=== PATIENT | female | born 1945 | race Caucasian/White ===

== ENCOUNTER 2024-11-27 16:49 | Inpatient (IN) | payer OTHER, SELFPAY ==
[2024-11-27] VITALS (9 sets, daily range): BP systolic 97–178; BP diastolic 62–101; BMI 27.5; BMI 25.0
[2024-11-27 13:23] LABS: % Basophils 0.8 % (0-2); % Eosinophils 7.8 % (0-6); % Immature Granulocytes 0.3 % (0-0.5); % Lymphocytes 16.6 % (20.5-51.1); % Monocytes 9.2 % (1.7-9.3); % Neutrophils 65.3 % (42.2-75.2); Absolute Basophils 0.1 10^3/uL (0-0.2); Absolute Eosinophils 0.9 10^3/uL (0-0.7); Absolute Monocytes 1.1 10^3/uL (0.1-0.6); Absolute Neutrophils 7.8 10^3/uL (1.4-6.5); Hematocrit 33.8 % (37.0-47.0); Hemoglobin 10.7 g/dL (12.0-16.0); Mean Corp Hgb Conc. 31.7 g/dL (33.0-37.0); Mean Corpuscular Volume 94.7 fL (81.0-99.0); Mean Platelet Volume 10.5 fL (7.4-10.4); Nucleated Red Blood Cells % 0 %; Platelet Count 488 10^3/uL (130-400); Red Blood Cell Count 3.57 10^6/uL (4.20-5.40); Red Cell Dist. Width 17.8 % (11.5-14.5); White Blood Cell Count 11.9 10^3/uL (4.8-10.8)
--- NOTE | 2024-11-27 13:35 | ED.GENMED ---
History of Present Illness
<Radha Joseph PA-C - Last Filed: 11/27/24 20:52>
General
Chief Complaint: Breathing Problem
Source: patient
Exam Limitations: none
Time Seen by Provider: 11/27/24 12:50
Nursing documentation reviewed up to this point in time: agreed with
History of Present Illness
History of Present Illness:
79 y/o F with h/o afib on eliquis, HTN, hld,
here with aides who have noticed she is dyspneic the past week on exertion
pt has also fallen 2 times, once 10 days ago and another time 2 days ago and seemed to almost pass otu though she didnt'
the first
Past History
<Radha Joseph PA-C - Last Filed: 11/27/24 20:52>
Past History
ED Past Medical History: Arrthythmia and CVA
Social History
Tobacco: Non-smoker
Phy Exam
<Radha Joseph PA-C - Last Filed: 11/27/24 20:52>
Physical Exam
Physical Exam:
GENERAL: Alert , in no apparent distress
HEAD: NCAT
EYE: pupils equal and reactive, no nystagmus, no photophobia
NECK: Supple,full rom, nontender
ENT: o/p clr, mmm.
CARDIAC: Regular rate and rhythm . no edema
LUNGS: Clear breath sounds bilaterally, no acute respiratory distress, no wheezes/rales/rhonchi
ABDOMEN: Soft, without focal tenderness, no r/g, no cvat
NEUROLOGICAL: Alert and orientedx 4, cn intact, no facial asymmetry, 5/5 strength in UE/LE, sensation intact, chronic left Achilles drop/foot drop, otherwise strength intact t
SKIN: Warm and dry, skin intact.
MUSCULOSKELETAL: No edema, well perfused.
PSYCH: Normal and appropriate interaction.
Scores
<Radha Opal, PA-C - Last Filed: 11/27/24 20:52>
Heart Failure Risk
Heart Failure Risk Score: Not Applicable
Course
<Radha Joseph PA-C - Last Filed: 11/27/24 20:52>
Orders/Labs/Results
Orders:
Orders
11/27/24 11:18
Electrocardiogram (*1) Urgent
Reason for Study: Shortness of Breath
EKG- Treatment ONCE
11/27/24 13:08
Urinalysis Reflex To Culture Urgent
Date Specimen was Collected: 11/27/24
Time Specimen was Collected: 13:16
11/27/24 13:09
CT Head W/o Iv Contrast Urgent
Comment:
Reason For Exam: fall , on eliquis
CR Chest - 2 Views Urgent
Comment:
Reason For Exam: sob
11/27/24 13:17
Type+Screen Urgent
Complete Blood Count/With Diff Urgent
Lactic Acid Urgent
PTT Urgent
Prothrombin Time Urgent
11/27/24 15:08
Comprehensive Metabolic Panel Urgent
Lipase Urgent
Troponin I Urgent
11/27/24 16:03
US Abdomen Complete/Upper Urgent
Comment:
Reason For Exam: elevated LFTs
11/27/24 16:15
Hepatitis A Antibody, Total Urgent
Hepatitis A IgM Antibody Urgent
Hepatitis B Core Ab, IgM Urgent
Hepatitis B Core Ab, Total Urgent
Hepatitis B Surface Antibody Urgent
Hepatitis B Surface Antigen Urgent
Hepatitis C Antibody Urgent
Tylenol [Acetaminophen] Urgent
11/27/24 16:23
Admit/Transfer Patient As Directed
Co-Sign Provider:
Level of Care: Inpatient admission
Assign to:: Telemetry
Physician / Group: Denise Garcia
Diagnosis: small volume acute hemorrhage in the left lateral ventricle, transaminitis
Reason for Telemetry: Arrhythmia
Date to Stop Telemetry: 11/30/24
Time to Stop Telemetry: 11:00
Reason for Hospitalization: small volume acute hemorrhage in the left lateral ventricle, transaminitis
Expected length of stay greater than two midnights?: Yes
ELOS- Estimated Length of Stay in days: 3
I certify the patient meets the requirements for IP care: Yes
PRN Pain Medication Management As Directed
May give lesser potent ordered pain med per pt: Yes
preference::
Protocol:: Medication orders for pain may be administered in a
manner that supports deferring to patient preference
when the pt is:
- Requesting an ordered lesser potent pain medication.
Least to most potent pain medications are defined
as: acetaminophen < NSAID < tramadol < opioids
(morphine, oxycodone, hydromorphone).
- Requesting a lesser dose of the same medication IF
ORDERED.
- Requesting a less intrusive route of administration
if both routes are prescribed by the provider (PO <
IV).
11/27/24 16:25
Code Status As Directed
Resuscitation Status: Do not resuscitate
Reached after discussion with pt or family/Healthcare POA: Yes
Decision communicated with: patient
DNR Bracelet Application ONCE
11/27/24 17:48
GASTROINTESTINAL CONSULT Routine
Consulting Provider: Kamala Machado
Was physician already notified: Yes
Neurosurgery Consult Routine
Consulting Provider: Nery Barrera
Was physician already notified: Yes
Activity As Directed
Activity Level: With Assistance
NIH Stroke Scale As Directed
Directions: Per protocol
Comment: every shift and with any change in condition or mental status
Neurological Checks As Directed
Frequency: q4h
Additional Instructions:: q4h x 24h upon admission to the floor, then qshift & with any change in condition
and mental status
Pneumatic Compression Sleeves As Directed
Type: Knee high
Vital Signs As Directed
Frequency: Per unit guidelines
Ot Eval And Treat Routine
Pt Eval And Treat Routine
Activity Level: With Assistance
DX Deep Vein Thrombosis Video Routine
11/27/24 20:00
CT Head W/o Iv Contrast Routine
Comment:
Reason For Exam: monitor brain bleed
Calcium Carbonate [Oscal Zi 500] 500 mg PO BID
11/28/24 06:00
Complete Blood Count/No Diff IN AM
11/28/24 08:00
Fluoxetine HCl [Prozac] 40 mg PO DAILY
Lactobac/Bifidobac [Visbiome] 1 cap PO DAILY
Lisinopril [Zestril] 2.5 mg PO DAILY
Metoprolol Xl [Toprol Xl] 50 mg PO DAILY
Vitamin B Complex with C [B COMPLEX w/VITAMIN C] 1 caplet PO DAILY
11/30/24 11:00
DC Protocol for Telemetry ONCE
Abnormal Lab Results
11/27/24 11/27/24
13:17 15:08
WBC 11.9 H 10^3/uL
(4.8-10.8)
RBC 3.57 L 10^6/uL
(4.20-5.40)
Hgb 10.7 L g/dL
(12.0-16.0)
Hct 33.8 L %
(37.0-47.0)
MCHC 31.7 L g/dL
(33.0-37.0)
RDW 17.8 H %
(11.5-14.5)
Plt Count 488 H 10^3/uL
(130-400)
MPV 10.5 H fL
(7.4-10.4)
Absolute Neuts (auto) 7.8 H 10^3/uL
(1.4-6.5)
Absolute Monos (auto) 1.1 H 10^3/uL
(0.1-0.6)
Absolute Eos (auto) 0.9 H 10^3/uL
(0-0.7)
Lymphocytes % 16.6 L %
(20.5-51.1)
Eosinophils % 7.8 H %
(0-6)
PT 16.4 H Sec
(11.4-14.6)
APTT 37.8 H Sec
(23.4-35.0)
Chloride 108 H mmol/L
(98-107)
BUN 18 H mg/dl
(7-17)
Creatinine 1.4 H mg/dL
(0.6-1.0)
Glucose 105 H mg/dl
(70-99)
Total Bilirubin 4.7 H mg/dl
(0.2-1.3)
AST 926 H* U/L
(14-36)
ALT 842 H* U/L
(0-35)
Alkaline Phosphatase 2153 H U/L
(38-126)
11/27/24 13:17
11/27/24 15:08
Vital Signs
Pulse: 74
Blood pressure: 104/81
Initial and Last Documented VS:
Initial Vital Signs
Temp Pulse Resp BP Pulse Ox
36.6 C 90 18 172/82 96
11/27/24 11:14 11/27/24 11:14 11/27/24 11:14 11/27/24 11:14 11/27/24 11:14
Last Documented Vital Signs
Temp Pulse Resp BP Pulse Ox
36.8 C 76 17 123/81 97
11/27/24 18:02 11/27/24 18:47 11/27/24 18:02 11/27/24 18:47 11/27/24 18:02
<Mayi Muhammad, DO - Last Filed: 11/27/24 16:12>
Orders/Labs/Results
Orders:
Orders
11/27/24 11:18
Electrocardiogram (*1) Urgent
Reason for Study: Shortness of Breath
EKG- Treatment ONCE
11/27/24 13:08
Urinalysis Reflex To Culture Urgent
Date Specimen was Collected: 11/27/24
Time Specimen was Collected: 13:16
11/27/24 13:09
CT Head W/o Iv Contrast Urgent
Comment:
Reason For Exam: fall , on eliquis
CR Chest - 2 Views Urgent
Comment:
Reason For Exam: sob
11/27/24 13:17
Type+Screen Urgent
Complete Blood Count/With Diff Urgent
Lactic Acid Urgent
PTT Urgent
Prothrombin Time Urgent
11/27/24 15:08
Comprehensive Metabolic Panel Urgent
Lipase Urgent
Troponin I Urgent
11/27/24 16:03
US Abdomen Complete/Upper Urgent
Comment:
Reason For Exam: elevated LFTs
11/27/24 16:15
Hepatitis A Antibody, Total Urgent
Hepatitis A IgM Antibody Urgent
Hepatitis B Core Ab, IgM Urgent
Hepatitis B Core Ab, Total Urgent
Hepatitis B Surface Antibody Urgent
Hepatitis B Surface Antigen Urgent
Hepatitis C Antibody Urgent
Tylenol [Acetaminophen] Urgent
11/27/24 16:23
Admit/Transfer Patient As Directed
Co-Sign Provider:
Level of Care: Inpatient admission
Assign to:: Telemetry
Physician / Group: Denise Garcia
Diagnosis: small volume acute hemorrhage in the left lateral ventricle, transaminitis
Reason for Telemetry: Arrhythmia
Date to Stop Telemetry: 11/30/24
Time to Stop Telemetry: 11:00
Reason for Hospitalization: small volume acute hemorrhage in the left lateral ventricle, transaminitis
Expected length of stay greater than two midnights?: Yes
ELOS- Estimated Length of Stay in days: 3
I certify the patient meets the requirements for IP care: Yes
PRN Pain Medication Management As Directed
May give lesser potent ordered pain med per pt: Yes
preference::
Protocol:: Medication orders for pain may be administered in a
manner that supports deferring to patient preference
when the pt is:
- Requesting an ordered lesser potent pain medication.
Least to most potent pain medications are defined
as: acetaminophen < NSAID < tramadol < opioids
(morphine, oxycodone, hydromorphone).
- Requesting a lesser dose of the same medication IF
ORDERED.
- Requesting a less intrusive route of administration
if both routes are prescribed by the provider (PO <
IV).
11/27/24 16:25
Code Status As Directed
Resuscitation Status: Do not resuscitate
Reached after discussion with pt or family/Healthcare POA: Yes
Decision communicated with: patient
DNR Bracelet Application ONCE
11/27/24 17:48
GASTROINTESTINAL CONSULT Routine
Consulting Provider: Kamala Machado
Was physician already notified: Yes
Neurosurgery Consult Routine
Consulting Provider: Nery Barrera
Was physician already notified: Yes
Activity As Directed
Activity Level: With Assistance
NIH Stroke Scale As Directed
Directions: Per protocol
Comment: every shift and with any change in condition or mental status
Neurological Checks As Directed
Frequency: q4h
Additional Instructions:: q4h x 24h upon admission to the floor, then qshift & with any change in condition
and mental status
Pneumatic Compression Sleeves As Directed
Type: Knee high
Vital Signs As Directed
Frequency: Per unit guidelines
Ot Eval And Treat Routine
Pt Eval And Treat Routine
Activity Level: With Assistance
DX Deep Vein Thrombosis Video Routine
11/27/24 20:00
CT Head W/o Iv Contrast Routine
Comment:
Reason For Exam: monitor brain bleed
Calcium Carbonate [Oscal Zi 500] 500 mg PO BID
11/28/24 06:00
Complete Blood Count/No Diff IN AM
11/28/24 08:00
Fluoxetine HCl [Prozac] 40 mg PO DAILY
Lactobac/Bifidobac [Visbiome] 1 cap PO DAILY
Lisinopril [Zestril] 2.5 mg PO DAILY
Metoprolol Xl [Toprol Xl] 50 mg PO DAILY
Vitamin B Complex with C [B COMPLEX w/VITAMIN C] 1 caplet PO DAILY
11/30/24 11:00
DC Protocol for Telemetry ONCE
Abnormal Lab Results
11/27/24 11/27/24
13:17 15:08
WBC 11.9 H 10^3/uL
(4.8-10.8)
RBC 3.57 L 10^6/uL
(4.20-5.40)
Hgb 10.7 L g/dL
(12.0-16.0)
Hct 33.8 L %
(37.0-47.0)
MCHC 31.7 L g/dL
(33.0-37.0)
RDW 17.8 H %
(11.5-14.5)
Plt Count 488 H 10^3/uL
(130-400)
MPV 10.5 H fL
(7.4-10.4)
Absolute Neuts (auto) 7.8 H 10^3/uL
(1.4-6.5)
Absolute Monos (auto) 1.1 H 10^3/uL
(0.1-0.6)
Absolute Eos (auto) 0.9 H 10^3/uL
(0-0.7)
Lymphocytes % 16.6 L %
(20.5-51.1)
Eosinophils % 7.8 H %
(0-6)
PT 16.4 H Sec
(11.4-14.6)
APTT 37.8 H Sec
(23.4-35.0)
Chloride 108 H mmol/L
(98-107)
BUN 18 H mg/dl
(7-17)
Creatinine 1.4 H mg/dL
(0.6-1.0)
Glucose 105 H mg/dl
(70-99)
Total Bilirubin 4.7 H mg/dl
(0.2-1.3)
AST 926 H* U/L
(14-36)
ALT 842 H* U/L
(0-35)
Alkaline Phosphatase 2153 H U/L
(38-126)
11/27/24 13:17
11/27/24 15:08
Vital Signs
Initial and Last Documented VS:
Initial Vital Signs
Temp Pulse Resp BP Pulse Ox
36.6 C 90 18 172/82 96
11/27/24 11:14 11/27/24 11:14 11/27/24 11:14 11/27/24 11:14 11/27/24 11:14
Last Documented Vital Signs
Temp Pulse Resp BP Pulse Ox
36.8 C 76 17 123/81 97
11/27/24 18:02 11/27/24 18:47 11/27/24 18:02 11/27/24 18:47 11/27/24 18:02
Yesylt;Radha Joseph PA-C - Last Filed: 11/27/24 20:52>
MDM/Problems Addressed
MDM/Problems Addressed:
oom 8 is mellisa judak 79 y/o F with h/o afib on eliquis, htn, hld
has daily caregivers
had a fall 10 days ago backwards with head strike, no evaluation and then 2 days ago also with a fall forwards, head strike, transient confusion, no eval until today
aides thoguht she was off balance since and a little winded with movement
awake and alert x 4
neuro intact other than foot drop chronic L leg
family thinks she is leaning to the r which i dont' appreciate
bp 100/80s, otherwise stable, well appearing, fiesty
ct head shows small L lateral ventricular hemorrhage;
last dose eliquis this am
nsg consulted dr. barrera and recommend no need to reverse eliquis, repeat head ct 6 hours and can stay here which pt prefers;
chemistry hemolyzed initially
shows obstructive pattern lfts (normal lipase)
no abd pain here
US sohws duct dilation
hostpialist made aware
will need gi consult, MRCP
<Radha Joseph PA-C - Last Filed: 11/27/24 20:52>
*Critical Care Note
Total Time (30-74mins, 75-104mins- exclusive of procedures): Not Applicable
ED Attending Note
<Radha Joseph PA-C - Last Filed: 11/27/24 20:52>
-
Portions of this chart may have been created with voice recognition software.� Occasional wrong word or��sound alike� substitutions may have occurred due to the inherent limitations of voice recognition software.
<Mayi Muhammad DO - Last Filed: 11/27/24 16:12>
ED Attending Note
Patient seen and examined by attending physician: Yes
I performed the substantive portion of visit, reviewed & personally made and approve the management plan that is documented in note by myself or OKSANA.: Yes
I performed a history and physical exam of patient and discussed management with resident, I reviewed resident's note and agree with documented findings and plan of care.: Yes
ED Attending Note:
79-year-old female with history of A-fib on anticoagulation presenting for dyspnea. Patient arrives with her aide who notes that she has been feeling short of breath, looked more short of breath and has had URI symptoms. Additionally patient notes
that she falls frequently, had a fall about 2 weeks ago and a fall 2 days ago. She was encouraged to come to hospital at that time, however did not get evaluated. No weakness, visual changes numbness or tingling. No reported fevers or any known
sick contacts. Vital signs on arrival significant for hypertension, however improved without intervention.
On my assessment patient is resting comfortably, no comfort. No increased work of breathing. Lungs clear to auscultation. Suspect viral type symptoms. No present hypoxia. From a respiratory standpoint, labs obtained as well as chest x-ray. No
significant signs of pulmonary edema. Viral swabs negative. No signs of pneumonia. Patient had a CT brain imaging given report of fall and anticoagulation. No signs of head trauma. However, CT is showing a small possible intraventricular
hemorrhage. In discussion with neurosurgery, plan for admission for repeat CT imaging in 6 to 12 hours. Patient made aware of her findings. Plan for admission. Daughter and aide updated at bedside
16:00 -patient's chemistry panel came back grossly abnormal with elevated T. bili, transaminitis, elevated alk phos. Concern for intra-abdominal pathology. Lipase normal. Plan for ultrasound imaging. Patient already admitted to the hospital with
plan for continued workup of cholangitis versus choledocholithiasis versus carcinoma
Discharge Plan
Departure
Patient Disposition: Admit
Date of Disposition: 11/27/24
Time of Disposition: 15:11
Admit to: IMU
Presentation/result/management discussed w/ accepting MD/DO: Hospitalist
Patient with high blood pressure during this ER visit?: No
Condition: Fair
Covid-19: Not Applicable
Discharge Problem:
Intraventricular hemorrhage, Fall
Interventions
Interventions:
*Risk Screen - Suicide Last Done: 11/27/24 11:14
*General Assessment Last Done: 11/27/24 11:14
*Neglect/Abuse Screening Last Done: 11/27/24 11:14
*ED COVID-19 Vaccine History Last Done: 11/27/24 18:28
*Nursing Disposition Last Done: 11/27/24 17:56
ED- Cardiac Assessment Last Done: 11/27/24 12:22
ED- Pulmonary Assessment Last Done: 11/27/24 12:22
Discharge Date and Time
Discharge Date/Time: 11/27/24 17:56
[2024-11-27 14:06] LABS: INR 1.26; PT 16.4 Sec (11.4-14.6)
[2024-11-27 14:07] LABS: APTT 37.8 Sec (23.4-35.0)
[2024-11-27 14:13] LABS: Lactic Acid 1.2 mmol/L (0.7-2.0)
--- NOTE | 2024-11-27 15:18 | HPS.HSE ---
Family Physician
-
Family Physician: Maren Conner
Chief Complaint
-
exertional dyspnea
History of Present Illness
Patient is a 79-year-old female with past medical history significant for hyperlipidemia, atrial fibrillation, chronic anemia, chronic kidney disease, and anxiety/depression who presented to [facility] ED for evaluation of exertional
dyspnea for past week. Patient states that her aides and daughter decided she needed to come to hospital for evaluation for increased exertional dyspnea over the past week. Aides reported patient had 2 recent falls with head strike, one 10 days ago
where she fell backwards and one 2 days ago where she fell forward. They reported transient confusion with no evaluation until today. Patient is AAOx4 and claims to not remember any falls and believes aides are lying that she fell. Neuro assessment
WNL, does have known left foot drop. Patient denies any recent fever, chills, cough, chest pain, nausea, vomiting, constipation, diarrhea or urinary smptoms.
Medical History
Past Medical History
Past Medical History: Reports Other
Additional Past Medical History:
hyperlipidemia
permanent atrial fibrillation
chronic anemia
chronic kidney disease
anxiety/depression
Chronic diastolic CHF
Past Surgical History: Reports Other
Additional Past Surgical History:
temporal artery biopsy
Coronary Angioplasty
Social History
Tobacco: Former Smoker (15 pack year history)
Alcohol: None
Drug: None
Living: Alone (has aide daily in morning and one at night for a total of approximately 8 hours )
Family History
Family History: Other (Mother: colon cancer; Father: CAD; Sister: COPD; Daughter: DM)
Allergies / Home Medications
Allergies reflects when Allergies were last updated in [facility].
Home Medications with original date entered in [facility]
Allergy/Medication List:
Allergies
Allergy/AdvReac Type Severity Reaction Status Date / Time
No Known Allergies Allergy Verified 11/27/24 11:14
Home Medications
atorvastatin 20 mg tablet 20 mg PO DAILY High cholesterol 12/28/21
B-complex with vitamin C 1 cap PO DAILY Supplement #30 caps 12/29/21
Lactobac no.2-Bifidobac no.1-S. thermo 112.5 billion cell capsule (Visbiome) 1 cap PO DAILY 11/27/24
acetaminophen 325 mg tablet (Tylenol) 650 mg PO Q6HPRN PRN mild pain 11/27/24
apixaban 5 mg tablet (Eliquis) 2.5 mg PO BID Blood clot prevention/tx 11/27/24
calcium carbonate (Calcium 600) 600 mg PO BID 11/27/24
fluoxetine 40 mg capsule 40 mg PO DAILY 11/27/24
lisinopril 2.5 mg tablet 2.5 mg PO DAILY 11/27/24
metoprolol succinate 50 mg tablet,extended release 24 hr (Toprol XL) 50 mg PO DAILY 11/27/24
Review of Systems
-
History Source: Patient
Constitutional: Reports No Symptoms
EENT: Reports No Symptoms
Respiratory: Reports No Symptoms
Cardiac: Reports No Symptoms
Abdomen/GI: Reports No Symptoms
: Reports No Symptoms
Musculoskeletal: Reports No Symptoms
Skin: Reports No Symptoms
Neurological: Reports No Symptoms
Endocrine: Reports No Symptoms
Hematologic/Lymphatic: Reports No Symptoms
Psych: Reports No Symptoms
Physical Exam
Vital Signs
Vital Signs
Temp Pulse Resp BP Pulse Ox
97.8 F 74 25 104/81 92
11/27/24 11:14 11/27/24 15:08 11/27/24 12:15 11/27/24 15:08 11/27/24 12:15
Physical Exam
General: Well Developed, Well Nourished, No Apparent Distress, Comfortable and Conversant
HEENT: NormoCephalic, Moist mucous membranes, Atraumatic, PERRLA, [place] Conjunctivae, Nose Appears Normal and Ears Appear Normal
Respiratory: Clear and Non Labored Respirations
Cardiac: S1/S2 and Regular Rhythm; No Murmur or Rub
Breast: Deferred by me
GI: Soft, Non Tender, Non Distended and Normal Bowel Sounds; No Organomegaly
Rectal: Deferred by Provider
Genito-urinary: Deferred by me
Musculoskeletal: No Clubbing, No Cyanosis and No Edema
Skin: No Rash
Neuro: Awake, Alert, AO x 3, No Motor Deficits, Nonfocal/grossly intact and Cranial Nerves Intact
Psych: Calm
Laboratory Results
-
11/27/24 13:17
Laboratory Results
PT 16.4 Sec (11.4-14.6) H 11/27/24 13:17
INR 1.26 11/27/24 13:17
APTT 37.8 Sec (23.4-35.0) H 11/27/24 13:17
Lactic Acid 1.2 mmol/L (0.7-2.0) 11/27/24 13:17
Total Bilirubin Cancelled 11/27/24 13:17
AST Cancelled 11/27/24 13:17
ALT Cancelled 11/27/24 13:17
Alkaline Phosphatase Cancelled 11/27/24 13:17
Troponin I Cancelled 11/27/24 13:17
Lipase Cancelled 11/27/24 13:17
Data Reviewed
-
Diagnostic Radiology: Report Reviewed by me (CXR: Hypoaerated lungs without consolidation)
CT Scan: Report Reviewed by me (Head: Findings as above most likely representing very small volume acute hemorrhage in the left lateral ventricle.)
Medical Tests (Nuc Med, Echo, EKG etc): Report Reviewed by me (EKG: ATRIAL FIBRILLATION ST and T WAVE ABNORMALITY, CONSIDER LATERAL ISCHEMIA)
Lab Data: Labs Reviewed by me
Impression/Plan
-
IMPRESSION/PLAN:
#small volume acute hemorrhage in the left lateral ventricle
EKG: ATRIAL FIBRILLATION
ST and T WAVE ABNORMALITY, CONSIDER LATERAL ISCHEMIA
CXR: Hypoaerated lungs without consolidation.
Headt CT: Findings as above most likely representing very small volume acute hemorrhage in the left lateral ventricle.
- Admit to telemetry
- Consult Neurosurgery
- repeat Head CT in 6 hours
#transaminitis of unknown etiology
patient denies any abdominal pain
tot bili 4.7, AST 926, ALT 843, Alk phos 2153
- Abdominal US pending
- Consult GI
#hyperlipidemia
- hold atorvastatin
#permanent atrial fibrillation
EKG: ATRIAL FIBRILLATION
ST and T WAVE ABNORMALITY, CONSIDER LATERAL ISCHEMIA
- hold Eliquis
#chronic anemia
hgb 10.7, hct 33.8
- appears at baseline
- monitor H/H
#chronic kidney disease
BUN 18, Creat 1.4
- appears to be baseline
- monitor BMP
#GERD
- continue pantoprazole
#Chronic diastolic CHF
ECHO (04/11/2023): Normal left ventricular chamber size. Mild concentric left ventricular hypertrophy. Normal left ventricular systolic function. Left ventricular ejection fraction is 55-60%. Diastolic function indeterminate.
Normal right ventricular size and function.
Indexed LA volume is mildly abnormal (35-41 mL/m2).
Mitral annular calcification. Mild mitral regurgitation.
Aortic sclerosis without stenosis.
Mild tricuspid regurgitation. Estimated pulmonary artery pressure of 25-30 mmHg. Assuming a right atrial pressure of 3 mmHg.
Compared to the previous echo 03/21/22, there is no significant change.
- daily weights
#anxiety/depression
Code status: full code
DVT prophylaxis: SCDs
[2024-11-27 15:45] LABS: Albumin 3.5 g/dl (3.5-5.0); Blood Urea Nitrogen 18 mg/dl (7-17); Calcium 9.8 mg/dl (8.4-10.2); Carbon Dioxide 23 mmol/L (22-30); Chloride 108 mmol/L (98-107); Estimated Creatinine Clearance 32 ml/min; Glucose 105 mg/dl (70-99); Lipase 266 U/L (23-300); Potassium 4.5 mmol/L (3.5-5.1); Sodium 140 mmol/L (135-145); Total Bilirubin 4.7 mg/dl (0.2-1.3)
[2024-11-27 15:54] LABS: Troponin I < 0.012 ng/ml
[2024-11-27 15:56] LABS: ALT (SGPT) 842 U/L (0-35); AST (SGOT) 926 U/L (14-36); Alkaline Phosphatase 2153 U/L (38-126)
--- NOTE | 2024-11-27 16:23 | W.PN.UPDATE ---
Addendum entered and electronically signed by Denise Garcia MD 11/27/24 17:56:
Abdominal US:
IMPRESSION:
1. EXTRAHEPATIC BILIARY DILATATION with the common bile duct now measuring 9.3 mm diameter (possibly secondary to a distal bile duct obstruction).
2. Mild diffuse liver disease.
3. Cholelithiasis.
4. Severe calcific atherosclerotic plaque in the abdominal aorta.
5. Fusiform infrarenal abdominal aortic aneurysm (2.6 cm diameter).
6. Moderate chronic bilateral renal disease.
7. 3.7 cm focal region of decreased echogenicity in the lower pole of the right kidney. Diagnostic possibilities are (1) a renal mass (possibly renal cell carcinoma) or (2) focal lobulation of the renal cortex.
updating GI
will order MRI/MRCP w/ and w/out contrast
Abnormality on right kidney may also be addressed with MRI versus further imaging
Original Note:
Update Note
Progress Note Update
This is an addendum to H&P written by TRACY Salgado
I saw and examined the patient.
The COMMERCIAL ARTIST's note was reviewed and I agree with the note.
Comment:
Ms. Evelina Mccann is a 79 yo woman with hx atrial fibrillation on Eliquis, essential HTN, HLD presents to the ER post fall several days ago with loss of balance per caretakers. She is found to have small volume acute hemorrhage left lateral
ventricle and elevated liver enzymes.
Triage VS: T 97.8, P 90, RR 18, BP 172/82, SpO2 96%
On exam patient is in no acute distress, CV: S1, S2; Chest clear, no LE swelling;
LABS: WBC 11.9, Hg 10.7, PLT 488, Na 140, K+ 4.5, Cl 108, CO2 23, Cr 1.4, Glucose 105, T. Bili 4.7, AST 926, ALT 842, Alk Phos [address]:
IMPRESSION: Findings as above most likely representing very small volume acute hemorrhage in the left lateral ventricle.
Small Intraventricular Hemorrhage
-case discussed with neurosurgery; OK for admission here and no need to reverse Eliquis
-repeat head CT in 6 hours
-hold Eliquis
-PT/OT
Significantly Elevated Liver enzymes
-no significant abdominal pain
-obtaining RUQ US now
-Tylenol level, Hep serologies
-GI consult
HLD
-hold statin with elevated liver enzymes
Essential HTN
-COLOR ADVISER Metoprolol
-COLOR ADVISER Lisinopril
DVT PPx SCD
DNR - discussed on admission
76 minutes spent on patient care
*daughter updated
[2024-11-27] MEDS: OSCAL CAL 500 500 MG PO (21:08)
[2024-11-27] MEDS: LIDOCAINE 4% PATCH 1 PATCH TOPICAL (21:08)
[2024-11-27 21:44] LABS: Acetaminophen < 10 ug/ml (10-30)
[2024-11-27 22:14] LABS: Hepatitis B Surface Antigen Negative (Negative)
[2024-11-27 22:32] LABS: Hepatitis A Antibody, Total Negative (Negative); Hepatitis B Core Ab, Total Negative (Negative); Hepatitis B Surface Antibody Negative; Hepatitis C Antibody Negative (Negative)
[2024-11-28] VITALS (8 sets, daily range): BP systolic 98–153; BP diastolic 59–87; PULSE 94–97; O2SAT 98; BMI 25.4
[2024-11-28 06:02] LABS: Hematocrit 30.7 % (37.0-47.0); Hemoglobin 9.8 g/dL (12.0-16.0); Mean Corp Hgb Conc. 31.9 g/dL (33.0-37.0); Mean Corpuscular Hgb 29.6 pg (27.0-31.0); Mean Corpuscular Volume 92.7 fL (81.0-99.0); Mean Platelet Volume 9.6 fL (7.4-10.4); Platelet Count 385 10^3/uL (130-400); Red Blood Cell Count 3.31 10^6/uL (4.20-5.40); Red Cell Dist. Width 17.4 % (11.5-14.5); White Blood Cell Count 11.2 10^3/uL (4.8-10.8)
[2024-11-28 06:14] LABS: Albumin 3.3 g/dl (3.5-5.0); Blood Urea Nitrogen 17 mg/dl (7-17); Calcium 9.7 mg/dl (8.4-10.2); Carbon Dioxide 22 mmol/L (22-30); Chloride 109 mmol/L (98-107); Estimated Creatinine Clearance 28 ml/min; Glucose 100 mg/dl (70-99); Magnesium 2.1 mg/dl (1.6-2.3); Sodium 140 mmol/L (135-145); Total Bilirubin 4.5 mg/dl (0.2-1.3); Total Protein 6.6 g/dl (6.3-8.2)
[2024-11-28 06:30] LABS: ALT (SGPT) 847 U/L (0-35); AST (SGOT) 1089 U/L (14-36); Alkaline Phosphatase 2113 U/L (38-126)
--- NOTE | 2024-11-28 06:57 | CON.GI ---
Addendum entered and electronically signed by Adrián Coffey MD 11/28/24 18:31:
I saw and examined the patient.
The PA's note was reviewed and I agree with the note.
Comment:
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 GI being
consulted for evaluation of elevated LFT.
Impression / Rec:
1. Elevated LFT - US showed extrahepatic biliary dilatation with CBD 9.3 mm with possible distal bile duct obstruction. MRI/MRCP followed and it showed no intra or extrahepatic biliary dilation, CBD measuring 8 mm without filling defect.
Unremarkable pancreas. Her LFT elevation is in mixed pattern, with bili of 4.5, AST at 1089 and ALT at 847 with alk phos 2113. This seems unlikely secondary to biliary etiology. She denies abdominal pain. Acute hep panel was negative. She
denies new meds/herbal supplements/recent use of antibiotics. Her LFTs were relatively normal in 2021. Will check serologic evidence of other chronic liver disease. Trend LFT.
Original Note:
Consultation
-
Date/Time Consultation Requested: 11/27/24 1735
Date/Time Consultation Performed: 11/28/24 1145
Requesting Provider: CHARLOTTE Theodore
Performing Provider: CHARLOTTE Hardy, Adrián Coffey MD
Reason for Consultation: increased LFT's
Medical History
Chief Complaint / HPI
History of Present Illness:
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 On
admission she is noted with concern for small volume acute hemorrhage in left lateral ventricle. Labs notable for WBC 11,900, platelet 488 with some chronic elevation and marked elevated LFT's with bili 4.7, AST 926, LENNOX 842, alk phos 2153. US
abdomen completed on admission with extrahepatic biliary dilatation with CBD 9.3 mm with possible distal bile duct obstruction, diffuse mild liver disease, cholelithiasis AAA 2.6cm b/l renal disease and 3.7 cm decreased echogenicity right kidney
with possible mass. MRI/MRCP pending.
At this time patient admits to some recent decreased appetite, 20 lbs wt loss, but denies nausea, vomiting, abdominal pain, diarrhea, constipation, or rectal bleeding. hx EGD/colon 2021 for anemia work up.
Past Medical History
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
splenic infarct)
Past Surgical History: Cardiac (angioplasty ) and Other (temp artery biopsy)
Social History
Tobacco: Former Smoker
Alcohol: Occasional (social on past )
Drug: None
Living: Alone
Employment: Retired
Family History
Family History: Other (no family hx liver, pancreatic or colon CA)
Allergies / Home Medications
Allergy/AdvReac Type Severity Reaction Status Date / Time
No Known Allergies Allergy Verified 11/27/24 11:14
�Medication �Instructions �Recorded
atorvastatin 20 mg tablet 20 mg PO DAILY High cholesterol 12/28/21
B-complex with vitamin C 1 cap PO DAILY Supplement #30 caps 12/29/21
Lactobac no.2-Bifidobac no.1-S. 1 cap PO DAILY 11/27/24
thermo 112.5 billion cell capsule
(Visbiome)
acetaminophen 325 mg tablet 650 mg PO Q6HPRN PRN mild pain 11/27/24
(Tylenol)
apixaban 5 mg tablet (Eliquis) 2.5 mg PO BID Blood clot 11/27/24
prevention/tx
calcium carbonate (Calcium 600) 600 mg PO BID 11/27/24
fluoxetine 40 mg capsule 40 mg PO DAILY 11/27/24
lisinopril 2.5 mg tablet 2.5 mg PO DAILY 11/27/24
metoprolol succinate 50 mg 50 mg PO DAILY 11/27/24
tablet,extended release 24 hr
(Toprol XL)
Review of Systems
-
History Source: Patient
Constitutional: Reports Weight Loss and Other (change in skin color )
EENT: Reports No Symptoms
Respiratory: Reports No Symptoms
Cardiac: Reports No Symptoms
Abdomen/GI: Reports Other (decreased appetite , puentes stools)
: Reports Dark Urine
Musculoskeletal: Reports No Symptoms
Skin: Reports No Symptoms
Neurological: Reports Weakness (recent falls )
Endocrine: Reports No Symptoms
Hematologic/Lymphatic: Reports No Symptoms
Vital Signs
Temp Pulse Resp BP Pulse Ox
98.9 F 91 18 153/76 95
11/28/24 03:58 11/28/24 03:58 11/28/24 03:58 11/28/24 03:58 11/28/24 03:58
Physical Exam
Exam
General: Well Developed and Well Nourished
HEENT: Other (jaundice, sclera icteric )
Respiratory: Clear
Cardiac: Regular Rhythm
GI: Soft, Non Tender and Non Distended
Musculoskeletal: No Clubbing and No Cyanosis
Skin: Warm and Dry
Neuro: Awake, Alert and AO x 3
Psych: Calm
Results
WBC 11.2 10^3/uL (4.8-10.8) H 11/28/24 05:35
Hgb 9.8 g/dL (12.0-16.0) L 11/28/24 05:35
Hct 30.7 % (37.0-47.0) L 11/28/24 05:35
MCV 92.7 fL (81.0-99.0) 11/28/24 05:35
Plt Count 385 10^3/uL (130-400) D 11/28/24 05:35
Absolute Neuts (auto) 7.8 10^3/uL (1.4-6.5) H 11/27/24 13:17
PT 16.4 Sec (11.4-14.6) H 11/27/24 13:17
INR 1.26 11/27/24 13:17
APTT 37.8 Sec (23.4-35.0) H 11/27/24 13:17
Sodium 140 mmol/L (135-145) 11/28/24 05:35
Potassium 4.0 mmol/L (3.5-5.1) 11/28/24 05:35
Chloride 109 mmol/L (98-107) H 11/28/24 05:35
Carbon Dioxide 22 mmol/L (22-30) 11/28/24 05:35
BUN 17 mg/dl (7-17) 11/28/24 05:35
Creatinine 1.4 mg/dL (0.6-1.0) H 11/28/24 05:35
Calcium 9.7 mg/dl (8.4-10.2) 11/28/24 05:35
Total Bilirubin 4.5 mg/dl (0.2-1.3) H 11/28/24 05:35
AST 1089 U/L (14-36) H* 11/28/24 05:35
ALT 847 U/L (0-35) H* 11/28/24 05:35
Alkaline Phosphatase 2113 U/L (38-126) H 11/28/24 05:35
Lipase 266 U/L (23-300) 11/27/24 15:08
Hepatitis A IgM Ab Cancelled 11/27/24 15:08
Hepatitis A Ab Total Negative (Negative) 11/27/24 15:08
Hep Bs Antibody Negative 11/27/24 15:08
Hep B Core Total Ab Negative (Negative) 11/27/24 15:08
Hep B Core IgM Ab Cancelled 11/27/24 15:08
Hepatitis C Antibody Negative (Negative) 11/27/24 15:08
Diagnostic Image Results:
11/28 MRI pending
11/27/24 US abdomen
1. EXTRAHEPATIC BILIARY DILATATION with the common bile duct now measuring 9.3 mm diameter (possibly secondary to a distal bile duct obstruction).
2. Mild diffuse liver disease.
3. Cholelithiasis.
4. Severe calcific atherosclerotic plaque in the abdominal aorta.
5. Fusiform infrarenal abdominal aortic aneurysm (2.6 cm diameter).
6. Moderate chronic bilateral renal disease.
7. 3.7 cm focal region of decreased echogenicity in the lower pole of the right kidney. Diagnostic possibilities are (1) a renal mass (possibly renal cell carcinoma) or (2) focal lobulation of the renal cortex.
11/27/24 CT Head W/o Iv Contrast
1. SEVERE WHITE MATTER LEUKOARAIOSIS in both cerebral hemispheres.
2. 1.4 cm chronic infarct in the periventricular right frontal lobe and right basal ganglia.
3. Small chronic periventricular infarct in the left frontal lobe.
4. Small 4.3 mm focus of asymmetric increased attenuation in the dependent portion of the occipital horn of the left lateral ventricle which appears unchanged. Diagnostic possibilities are (1) asymmetric choroid plexus, (2) a small amount of
intraventricular hemorrhage, or (3) other small benign intraventricular mass.
Prior GI Procedures:
EGD: 03/2022 salguti - Tortuous esophagus.
- Esophageal ulcer.
- Z-line variable, 35 cm from the incisors.
- Small hiatal hernia.
- Erythematous mucosa in the gastric body. Clip was
placed.
- Discolored mucosa in the stomach.
- Normal examined duodenum.
- No specimens collected.
Colonoscopy: 03/2022 Protano- KATIA to TI - Preparation of the colon was fair.
- The examined portion of the ileum was normal.
- Multiple small polyps in the sigmoid colon, in the
transverse colon and at the hepatic flexure.
- Diverticulosis in the sigmoid colon, in the
transverse colon and at the hepatic flexure.
- Friability in the ascending colon and in the cecum.
- Internal hemorrhoids.
- No specimens collected.
Assessment / Plan
-
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 On
admission she is noted with concern for small volume acute hemorrhage in left lateral ventricle. Labs notable for WBC 11,900, platelet 488 with some chronic elevation and marked elevated LFT's with bili 4.7, AST 926, LENNOX 842, alk phos 2153. US
abdomen completed on admission with extrahepatic biliary dilatation with CBD 9.3 mm with possible distal bile duct obstruction, diffuse mild liver disease, cholelithiasis AAA 2.6cm b/l renal disease and 3.7 cm decreased echogenicity right kidney
with possible mass.
-elevated LFT's with painless jaundice
-abnormal US with extrahepatic biliary dilatation and CBD 9.3 cm with possible distal CBD obstruction
-cholelithiasis
-possible renal mass on US
-small volume acute hemorrhage left lateral ventricle
-leukocytosis
-recent falls
-afib on Eliquis
other med problems:
-chronic anemia
-CKD
-CHF
-CAD
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
-anxiety/depression
PLAN:
await MRI
may need ERCP +/- EUS pending results
Eliquis hold last dose 11/27
trend labs
hepatitis panel neg
NPO- pending MRI results than consider diet advancement
awaiting neurosurgery eval for small ventricular hemorrhage
-
-
Thank you for consultation and allowing me to participate in the patient's care. Please call the chief hydroelectric station operator GI physician during the after hours with any questions or concerns.
[2024-11-28] MEDS: VISBIOME 1 CAP PO (09:22)
[2024-11-28] MEDS: B COMPLEX w/VITAMIN C 1 CAPLET PO (09:22)
[2024-11-28] MEDS: OSCAL CAL 500 500 MG PO ×2 (09:22→21:09)
[2024-11-28] MEDS: TOPROL XL 50 MG PO (09:22)
[2024-11-28] MEDS: ZESTRIL PO (09:23)
[2024-11-28] MEDS: PROZAC 40 MG PO (09:36)
--- NOTE | 2024-11-28 12:50 | CON.NS ---
Documented by User: Erin Tamez PA-C 11/28/24 14:07
Chief Complaint
-
s/p fall
History of Present Illness
This is an 79 y/o F who with current medical issues significant for hyperlipidemia, atrial fibrillation, chronic anemia, chronic kidney disease, and anxiety/depression who presented to [facility] ED for evaluation of exertional dyspnea for
past week. It was reported that she had 2 recent falls. One approximately 10 days ago and one 2 days ago. She is on Eliquis. CT head was obtained and it demonstrated a small left IVH. Neurosurgery was consulted.
Patient seen and examined. She denies any headaches, changes in vision, weakness.
Review of Systems
-
A 10 point ROS including HEENT,cardiac,respiratory,GI,, integumentary, heme/onc,endocrine, psych, musculoskeletal has been performed and is negative except for pertinent positives as noted in the HPI above.
Medical History
Past Medical History
Additional Past Medical History:
Past Medical History: Reports Other
Additional Past Medical History:
hyperlipidemia
permanent atrial fibrillation
chronic anemia
chronic kidney disease
anxiety/depression
Chronic diastolic CHF
Past Surgical History: Reports Other
Additional Past Surgical History:
temporal artery biopsy
Coronary Angioplasty
Social History
Tobacco: Former Smoker (15 pack year history)
Alcohol: None
Drug: None
Living: Alone (has aide daily in morning and one at night for a total of approximately 8 hours )
Family History
Family History: Other (Mother: colon cancer; Father: CAD; Sister: COPD; Daughter: DM)
Medication and Allergies
Home Medications
Home Medications
�Medication �Instructions �Recorded
atorvastatin 20 mg tablet 20 mg PO DAILY High cholesterol 12/28/21
B-complex with vitamin C 1 cap PO DAILY Supplement #30 caps 12/29/21
Lactobac no.2-Bifidobac no.1-S. 1 cap PO DAILY Supplement 11/27/24
thermo 112.5 billion cell capsule
(Visbiome)
acetaminophen 325 mg tablet 650 mg PO Q6HPRN PRN mild pain 11/27/24
(Tylenol)
apixaban 5 mg tablet (Eliquis) 2.5 mg PO BID Blood clot 11/27/24
prevention/tx
calcium carbonate (Calcium 600) 600 mg PO BID Supplement 11/27/24
fluoxetine 40 mg capsule 40 mg PO DAILY Mental 11/27/24
Health/Anxiety
lisinopril 2.5 mg tablet 2.5 mg PO DAILY Blood Pressure 11/27/24
metoprolol succinate 50 mg 50 mg PO DAILY Blood Pressure 11/27/24
tablet,extended release 24 hr
(Toprol XL)
Allergies
Allergies
Allergy/AdvReac Type Severity Reaction Status Date / Time
No Known Allergies Allergy Verified 11/27/24 11:14
Physical Exam
-
Exam:
-Pleasant and cooperative for examination, mood and demeanor are appropriate
-Alert and oriented to time,place,person
-well nourished,atraumatic
-no swelling or erythema identified
-Cn2-12 GI
-EOMI
-ENT: grossly normal hearing
-RESP: normal breathing, unlabored
-Speech fluent
-Motor: full in 4 ext, absent drift
-peripheral extremity pulses are palpable
-sensation intact to light touch throughout
-reflexes normal at all stations
CT head imaging personally interpreted.
Exams: CT Head W/o Iv Contrast
EXAMINATION: CT of the head without contrast.
INDICATION: Fall.
COMPARISON: 12/28/2021.
TECHNIQUE: Axial acquisition from the skull base through vertex. Coronal reformats provided. Automated dose reduction technique was utilized.
FINDINGS:
Along the medial wall of left lateral ventricle, there is 3 mm rounded hyperdensity (image #18 series 201). Slightly superior to the roof of the third ventricle. Not present on 2021 examination. In addition to this, there is very small layering
hyperdensity along the posterior horn of left lateral ventricle which was not present on the prior study (image #16, #15). Findings suspicious for very small intraventricular hemorrhage. Position of the nodule would be atypical for colloid cyst and
not previously present. No other acute hemorrhage is identified. As seen prior, there is mild to moderate bilaterally symmetric prominence of the ventricles and extra-axial CSF spaces representing volume loss. There are diffuse white matter
hypodensities which are nonspecific, but most likely related to chronic small vessel ischemic disease. There is small chronic lacunar infarct involving right internal capsule and anterior right basal ganglia. This was present prior. No acute loss of
vargas-white differentiation is identified. Posterior fossa structures are within normal limits. No skull fracture.
IMPRESSION: Findings as above most likely representing very small volume acute hemorrhage in the left lateral ventricle.
Problems
-
Problem Status Onset Code
Fall W19.XXXA
Intraventricular hemorrhage I61.5
Assessment / Plan
-
This is an 79 y/o F with small left sided IVH stable on repeat imaging
--Imaging reviewed. No acute neurosurgical intervention indicated at this time.
--okay for dvt ppx
--okay for diet from neurosurgical perspective.
--okay to restart Eliquis in 1 week if medically indicated. Given patient's history of frequent falls will defer to cardiology/medicine regarding risks vs benefits of continued AC/AP.
-- follow up prn
--neurosurgery to sign off.
--Patient discussed with Dr. Frederick.

Documented by User: Nery Frederick MD 12/02/24 10:44
Problems
-
Problem Status Onset Code
Fall W19.XXXA
Intraventricular hemorrhage I61.5
Assessment / Plan
-
This is an 79 y/o F with small left sided IVH stable on repeat imaging
--Imaging reviewed. No acute neurosurgical intervention indicated at this time.
--okay for dvt ppx
--okay for diet from neurosurgical perspective.
--okay to restart Eliquis in 1 week if medically indicated. Given patient's history of frequent falls will defer to cardiology/medicine regarding risks vs benefits of continued AC/AP.
-- follow up prn
--neurosurgery to sign off.
--Patient discussed with Dr. Frederick.
ATTENDING ATTESTATION:
Images reviewed and discussed with PA. Agree with above plan.
[2024-11-28 13:09] LABS: COVID-19 Antigen Negative (Negative)
--- NOTE | 2024-11-28 13:11 | W.PN.HOSP.TC ---
Addendum entered and electronically signed by Sergio Austin MD 11/28/24 17:45:
Daughter updated over the phone
Patient with some intermittent vaginal bleeding, small amount. Consult gynecology for possible pelvic exam
Patient denies any significant abdominal pain
Original Note:
Today's Communication/Plan
-
Monitor vital signs
see plan
MRI
Monitor LFTs
Monitor mental status
PT/OT
Assessment / Plan
Assessment / Plan
General: Well Developed, Well Nourished, No Apparent Distress, Comfortable and Conversant
HEENT: NormoCephalic, Moist mucous membranes, Atraumatic, PERRLA, [place] Conjunctivae, Nose Appears Normal and Ears Appear Normal
Respiratory: Clear and Non Labored Respirations
Cardiac: S1/S2 and Regular Rhythm; No Murmur or Rub
GI: Soft, Non Tender, Non Distended and Normal Bowel Sounds; No Organomegaly
Musculoskeletal: No Edema
Neuro: Awake, Alert, AO x 3, No Motor Deficits, Nonfocal/grossly intact and Cranial Nerves Intact
Psych: Calm
small volume acute hemorrhage in the left lateral ventricle
EKG: ATRIAL FIBRILLATION
ST and T WAVE ABNORMALITY, CONSIDER LATERAL ISCHEMIA
CXR: Hypoaerated lungs without consolidation.
Head CT: Findings as above most likely representing very small volume acute hemorrhage in the left lateral ventricle.
Repeat head CT unchanged
Neurosurgery following, restart Eliquis in 1 week if indicated. No acute neurosurgical intervention indicated
transaminitis
patient denies any abdominal pain
Elevated bili, LFTs
Abdominal ultrasound with biliary dilation. Abdominal ultrasound also with suspected renal mass however MRI negative for any mass
MRI/MRCP with [place] lithiasis. CBD is within upper normal limits. No obstruction
GI following
hyperlipidemia
- hold atorvastatin
permanent atrial fibrillation
EKG: ATRIAL FIBRILLATION
ST and T WAVE ABNORMALITY, CONSIDER LATERAL ISCHEMIA
- hold Eliquis
chronic anemia
- appears at baseline
- monitor H/H
chronic kidney disease
BUN 18, Creat 1.4
- appears to be baseline
- monitor BMP
GERD
- continue pantoprazole
Chronic diastolic CHF
ECHO (04/11/2023): Normal left ventricular chamber size. Mild concentric left ventricular hypertrophy. Normal left ventricular systolic function. Left ventricular ejection fraction is 55-60%. Diastolic function indeterminate.
Normal right ventricular size and function.
Indexed LA volume is mildly abnormal (35-41 mL/m2).
Mitral annular calcification. Mild mitral regurgitation.
Aortic sclerosis without stenosis.
Mild tricuspid regurgitation. Estimated pulmonary artery pressure of 25-30 mmHg. Assuming a right atrial pressure of 3 mmHg.
Compared to the previous echo 03/21/22, there is no significant change.
- daily weights
anxiety/depression
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
Code status: full code
DVT prophylaxis: SCDs
Anticipated Discharge: 24 - 48 hours
Subjective/Interval History
-
Date of Service: November 28, 2024
denies pain
Objective Data
-
Labs:
Laboratory Results
11/28/24
05:35
WBC 11.2 H
Hgb 9.8 L
Hct 30.7 L
Plt Count 385 D
Sodium 140
Potassium 4.0
Chloride 109 H
Carbon Dioxide 22
BUN 17
Creatinine 1.4 H
Glucose 100 H
Calcium 9.7
Total Bilirubin 4.5 H
AST 1089 H*
ALT 847 H*
Alkaline Phosphatase 2113 H
Vital Signs:
Vital Signs
Temp Pulse Resp BP Pulse Ox
98.2 F 85 17 116/77 96
11/28/24 11:50 11/28/24 11:50 11/28/24 11:50 11/28/24 11:50 11/28/24 11:50
--- NOTE | 2024-11-28 16:35 | PN.CDI ---
CDI
- -
CDI:
Physician Documentation Request
Admit Date: 11/27/24 16:49
Dear Doctor Norman,
Please review the following and provide your response in the progress notes.
Clinical Indicators:
Pt admitted with small volume acute hemorrhage in the left lateral ventricle.
11/28 HPN: 'chronic kidney disease-BUN 18, Creat 1.4 - appears to be baseline'
Laboratory Tests
11/27/24 11/28/24
15:08 05:35
Creatinine 1.4 H 1.4 H
eGFR 37.80 37.80
Clarify which of the following accurately represents the patient's renal status:
____ - CKD, please provide stage - see criteria
____ - Other
____ - Unable to determine
Stages of Chronic Kidney Disease*
Level Description GFR
G1 Normal or High >90
G2 Mildly decreased 60-89
G3a Mildly to moderately decreased 45-59
G3b Moderately to severely decreased 30-44
G4 Severely decreased 15-29
G5 Kidney failure <15
Use of terms such as suspected, likely, concern for, or probable (associated with a specific diagnosis that is being evaluated, monitored, or treated as if it exists) are acceptable and can be coded in the inpatient setting, when documented at the
time of discharge.
Thank you,
Sameera Mayes RN, BSN
CDI Specialist
[facility]
Please use your independent medical judgment in providing your response.
*Source: Kidney Disease: Improving Global Outcomes (KDIGO) 2012
[2024-11-28] MEDS: NSS 1000 IV (18:09)
[2024-11-28] MEDS: LIDOCAINE 4% PATCH 1 PATCH TOPICAL (21:09)
--- NOTE | 2024-11-28 21:32 | CON.MD ---
Focused History & Physical
Chief Complaint / HPI
Chief Complaint: Vaginal Bleeding
HPI / Indication for Planned Procedure:
79yo with a PMH for HLD, A. Fib (was on eliquis), CKD, Anxiety/depression who was admitted on 11/27/24 for dyspnea on exertion and was also found on presentation to have elevated LFTs and a small Intraventricular Hemorrhage. Nurse noted that
there was blood in her diaper so RETAIL SELLING SPECIALIST was consulted today to evaluate for PMB. Patient states that at her living facility she has noticed blood on her pads but she thought it was related to skin breakdown. She however denies feeling discomfort or
irritation of the labia. She has no pelvic pain. She denies vaginal odor or irritation. She is in [place] since her 40s and denies previous episodes of PMB. She also has not seen a RETAIL SELLING SPECIALIST in 40+ years.
Relevant Past Medical History: Coronary Artery Disease and Other (Atrial Fibrillation, HLD, Anemia, CKD, Anxiety/depression, CHF)
Relevant Social History: Tobacco Use (Former)
Relevant Family History: Positive for (Mother- Colon CA, Father-CAD, Sister- COPD, Daughter- DM)
Relevant Past Surgical History: Positive for (temporal artery biopsy, Coronary Angioplasty)
Review of Systems
Review of Pertinent Systems: All Systems Negative Except for the Following Positives (per HPI)
Medication Reconciliation
See Medication Reconciliation form for detailed medications: Yes
Medication List (including Herbals and OTC):
atorvastatin 20 mg tablet 20 mg PO DAILY High cholesterol 12/28/21
B-complex with vitamin C 1 cap PO DAILY Supplement #30 caps 12/29/21
Lactobac no.2-Bifidobac no.1-S. thermo 112.5 billion cell capsule (Visbiome) 1 cap PO DAILY Supplement 11/27/24
acetaminophen 325 mg tablet (Tylenol) 650 mg PO Q6HPRN PRN mild pain 11/27/24
apixaban 5 mg tablet (Eliquis) 2.5 mg PO BID Blood clot prevention/tx 11/27/24
calcium carbonate (Calcium 600) 600 mg PO BID Supplement 11/27/24
fluoxetine 40 mg capsule 40 mg PO DAILY Mental Health/Anxiety 11/27/24
lisinopril 2.5 mg tablet 2.5 mg PO DAILY Blood Pressure 11/27/24
metoprolol succinate 50 mg tablet,extended release 24 hr (Toprol XL) 50 mg PO DAILY Blood Pressure 11/27/24
Allergies and Reactions
Noted Allergies and Reactions:
Allergy/AdvReac Type Severity Reaction Status Date / Time
No Known Allergies Allergy Verified 11/27/24 11:14
Pertinent Physical Exam
Abdomen: Normal (Bimanual exam: small cervix, nt, no palpable irregularity. no adnexal masses appreciated. difficult to palpate fundus. ) and Other (Labia without lesions/excoriation/erythema. small amt rust colored d/c in vagina. Unable to
visualize cervix due to patient discomfort. No obvious mass/deformity seen in vagina. )
Diagnosis/Assessment
79yo with PMB
Plan/Procedure
Reviewed exam findings with the patient. Explained that a Pelvic US would be the next step in her evaluation. This is already ordered for her but likely will not get done until tomorrow. Once complete, one of my partners will review results with
her. I suspect she will need a biopsy but due to her discomfort and difficult positioning I do not know if this will be able to be done at the bedside. Can potentially attempt in the office with patient better positioned vs in the OR.
RETAIL SELLING SPECIALIST will f/u tomorrow.
Vital Signs / Labs
-
Vital Signs and Labs:
Temp Pulse Resp BP Pulse Ox
98.4 F 84 16 106/69 95
11/28/24 19:25 11/28/24 19:25 11/28/24 19:25 11/28/24 19:25 11/28/24 19:25
11/28/24 05:35
11/28/24 05:35
11/27/24 11/28/24
15:08 05:35
WBC 11.2 H
RBC 3.31 L
Hgb 9.8 L
Hct 30.7 L
MCHC 31.9 L
RDW 17.4 H
Chloride 109 H
Creatinine 1.4 H
Glucose 100 H
Total Bilirubin 4.5 H
Direct Bilirubin 3.0 H
AST 1089 H*
ALT 847 H*
Alkaline Phosphatase 2113 H
Albumin 3.3 L
Acetaminophen < 10 L
[2024-11-29 03:30] VITALS: BP 121/77
[2024-11-29 06:00] VITALS: BMI 26.0
[2024-11-29 08:31] VITALS: BP 120/78
[2024-11-29 08:39] LABS: % Basophils 0.8 % (0-2); % Eosinophils 8.3 % (0-6); % Immature Granulocytes 0.4 % (0-0.5); % Lymphocytes 17.4 % (20.5-51.1); % Monocytes 10.9 % (1.7-9.3); % Neutrophils 62.2 % (42.2-75.2); Absolute Basophils 0.1 10^3/uL (0-0.2); Absolute Immature Granulocytes 0.1 10^3/uL (0-0.05); Absolute Lymphocytes 2.1 10^3/uL (1.2-3.4); Absolute Monocytes 1.3 10^3/uL (0.1-0.6); Absolute Neutrophils 7.3 10^3/uL (1.4-6.5); Hematocrit 31.3 % (37.0-47.0); Mean Corp Hgb Conc. 31.9 g/dL (33.0-37.0); Mean Corpuscular Hgb 29.8 pg (27.0-31.0); Mean Corpuscular Volume 93.2 fL (81.0-99.0); Mean Platelet Volume 9.8 fL (7.4-10.4); Nucleated Red Blood Cells % 0 %; Platelet Count 407 10^3/uL (130-400); Red Blood Cell Count 3.36 10^6/uL (4.20-5.40); Red Cell Dist. Width 17.5 % (11.5-14.5); White Blood Cell Count 11.8 10^3/uL (4.8-10.8)
[2024-11-29 09:10] LABS: Albumin 3.5 g/dl (3.5-5.0); Blood Urea Nitrogen 17 mg/dl (7-17); Calcium 9.7 mg/dl (8.4-10.2); Carbon Dioxide 23 mmol/L (22-30); Chloride 105 mmol/L (98-107); Estimated Creatinine Clearance 33 ml/min; Glucose 101 mg/dl (70-99); Iron 86 ug/dl (37-170); Potassium 4.4 mmol/L (3.5-5.1); Sodium 139 mmol/L (135-145); Total Bilirubin 4.8 mg/dl (0.2-1.3); Total Protein 6.8 g/dl (6.3-8.2); eGFR 45.48
[2024-11-29 09:21] LABS: ALT (SGPT) 810 U/L (0-35); AST (SGOT) 916 U/L (14-36); Alkaline Phosphatase 2252 U/L (38-126); Percent Saturation 29 % (20-50); Total Iron Binding Capacity 294 ug/dl (265-497)
[2024-11-29] MEDS: OSCAL CAL 500 500 MG PO ×2 (09:21→21:10)
[2024-11-29] MEDS: VISBIOME 1 CAP PO (09:21)
[2024-11-29] MEDS: B COMPLEX w/VITAMIN C 1 CAPLET PO (09:21)
[2024-11-29] MEDS: TOPROL XL 50 MG PO (09:22)
[2024-11-29] MEDS: PROZAC 40 MG PO (09:22)
--- NOTE | 2024-11-29 11:09 | W.PN.GI.CBS2 ---
Addendum entered and electronically signed by Adrián Coffey MD 11/29/24 13:14:
I saw and examined the patient.
The PA's note was reviewed and I agree with the note.
Comment:
Continues to deny abdominal symptoms. LFT today showed improving transaminases (AST 916/ALT 810) and increase in bili/alk phos, which are likely lagged reaction. This appears to be predominantly hepatocellular injury pattern with delayed
cholestatic pattern. Iron/TIBC not consistent with hemochromatosis. Ferritin moderately high but may be non-specific. SHEILA/ASMA pending. Agree with additional serologic testing. Would prefer continued monitoring of LFT before discharge planning.
Original Note:
Today's Communication / Plan
-
Etiology unclear --MRI with cholelithiasis but no CBD stone, no masses seen, no ETOH use, no documented hypotension, hepatitis neg, denies supplement or new medications, no recent antibiotics, no hx liver problems in past
she does have noted hx falls and now complaints of some difficulty with left leg with old bruise on hip-- reviewed with Dr. Austin to conside hip imaging, will add GGT to see if alk phos elevation is bone driven
trend labs- some improve AST/ALT , bili and alk phos higher
will add A1AT, SLA, and AMA
s/p neurosurgery eval for small ventricular hemorrhage consult appreciated -- ok to resume Eliquis in 1 week last dose 11/27
Assessment / Plan
-
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 On
admission she is noted with concern for small volume acute hemorrhage in left lateral ventricle. Labs notable for WBC 11,900, platelet 488 with some chronic elevation and marked elevated LFT's with bili 4.7, AST 926, LENNOX 842, alk phos 2153. US
abdomen completed on admission with extrahepatic biliary dilatation with CBD 9.3 mm with possible distal bile duct obstruction, diffuse mild liver disease, cholelithiasis AAA 2.6cm b/l renal disease and 3.7 cm decreased echogenicity right kidney
with possible mass.
11/28/24 MR Abdomen W/o & W Contrast
Cholelithiasis. Otherwise essentially unremarkable MRI of the abdomen.
Common bile duct is within upper normal limits for age. No obstruction.
No suspicious renal mass.
Serology work up - hepatitis panel neg, no immunity, tylenol <10, SHEILA pending, F actin pending, prior celiac 2021 neg, iron 86, TIBC 294, % sat 419, covid neg
Laboratory Tests
11/27/24 11/28/24 11/29/24
15:08 05:35 08:09
Total Bilirubin 4.7 H 4.5 H 4.8 H
Direct Bilirubin 3.0 H
AST 926 H* 1089 H* 916 H*
ALT 842 H* 847 H* 810 H*
Alkaline Phosphatase 2153 H 2113 H 2252 H
-elevated LFT's with painless jaundice-- mixed hepatocellular and cholestatic pattern
-abnormal US with extrahepatic biliary dilatation and CBD 9.3 mm with possible distal CBD obstruction follow up MRI no obstruction CBD upper limit normal for age
-cholelithiasis
-possible renal mass on US no seen on follow up MRI
-small volume acute hemorrhage left lateral ventricle
-left hip bruising
-leukocytosis
-recent falls
-afib on Eliquis
-vaginal bleeding s/p PULP BLEACHER eval
other med problems:
-chronic anemia
-CKD
-CHF
-CAD
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
-anxiety/depression
-DNR
PLAN:
Etiology unclear --MRI with cholelithiasis but no CBD stone, no masses seen, no ETOH use, no documented hypotension, hepatitis neg, denies supplement or new medications, no recent antibiotics, no hx liver problems in past
she does have noted hx falls and now complaints of some difficulty with left leg with old bruise on hip-- reviewed with Dr. Austin to conside hip imaging, will add GGT to see if alk phos elevation is bone driven
trend labs- some improve AST/ALT , bili and alk phos higher
will add A1AT, SLA, and AMA
s/p neurosurgery eval for small ventricular hemorrhage consult appreciated -- ok to resume Eliquis in 1 week last dose 11/27
Subjective
Subjective
Date of Service: November 29, 2024
11/28/24 brown stool , cholesterol lowering diet , pt admits to fatigue and weakness in left leg
Objective
Data Reviewed
Laboratory Data:
Laboratory Results
11/29/24 08:09
11/29/24 08:09
Laboratory Results
PT 16.4 Sec (11.4-14.6) H 11/27/24 13:17
INR 1.26 11/27/24 13:17
APTT 37.8 Sec (23.4-35.0) H 11/27/24 13:17
Magnesium 2.1 mg/dl (1.6-2.3) 11/28/24 05:35
Total Bilirubin 4.8 mg/dl (0.2-1.3) H 11/29/24 08:09
AST 916 U/L (14-36) H* 11/29/24 08:09
ALT 810 U/L (0-35) H* 11/29/24 08:09
Alkaline Phosphatase 2252 U/L (38-126) H 11/29/24 08:09
Lipase 266 U/L (23-300) 11/27/24 15:08
Vital Signs and I&O:
Vital Signs
Temp Pulse Resp BP Pulse Ox
98 F 70 21 120/78 96
11/29/24 08:31 11/29/24 08:31 11/29/24 08:31 11/29/24 08:31 11/29/24 08:31
I&O
11/28/24 11/29/24 11/30/24
06:59 06:59 06:59
Intake Total 360 / 360
Balance 360 / 360
Physical Exam
Physical Exam
HEENT: Other (jaundice )
Cardiology: Normal Sinus Rhythm
Pulmonary: Clear
GI: Soft, Non Distended and Non Tender
Extremities: Other (left hip with old bruise but tender to touch)
Neuro: Other (forgetful at times )
[2024-11-29 12:29] VITALS: BP 116/63
[2024-11-29 13:02] LABS: GGTP 906 U/L (12-43)
--- NOTE | 2024-11-29 13:25 | W.PN.HOSP.TC ---
Addendum entered and electronically signed by Sergio Austin MD 11/29/24 15:15:
Pelvic ultrasound with thickened endometrium. Gynecology recommending D&C under general anesthesia. Requested risk stratification by cardiology. Cardiology consulted. I also spoke with neurosurgery who has no issues with patient getting general
anesthesia.
Original Note:
Today's Communication/Plan
-
Monitor vitals
See plan
Check hip and pelvis x-ray
Transvaginal pelvic ultrasound
Monitor hemoglobin
PT/OT
Monitor LFTs
Discussed with daughter
Assessment / Plan
Assessment / Plan
General: Well Developed, Well Nourished, No Apparent Distress, Comfortable and Conversant
HEENT: NormoCephalic, Moist mucous membranes, Atraumatic, PERRLA, [place] Conjunctivae, Nose Appears Normal and Ears Appear Normal
Respiratory: Clear and Non Labored Respirations
Cardiac: S1/S2 and Regular Rhythm; No Murmur or Rub
GI: Soft, Non Tender, Non Distended and Normal Bowel Sounds
Musculoskeletal: No Edema
Neuro: Awake, Alert, AO x 3, No Motor Deficits, Nonfocal/grossly intact and Cranial Nerves Intact
Psych: Calm
small volume acute hemorrhage in the left lateral ventricle
EKG: ATRIAL FIBRILLATION
ST and T WAVE ABNORMALITY, CONSIDER LATERAL ISCHEMIA
CXR: Hypoaerated lungs without consolidation.
Head CT: Findings as above most likely representing very small volume acute hemorrhage in the left lateral ventricle.
Repeat head CT unchanged
Neurosurgery following, restart Eliquis in 1 week if indicated. No acute neurosurgical intervention indicated
transaminitis
patient denies any abdominal pain
Elevated bili, LFTs
Abdominal ultrasound with biliary dilation. Abdominal ultrasound also with suspected renal mass however MRI negative for any mass
MRI/MRCP with Lisa lithiasis. CBD is within upper normal limits. No obstruction
GI following
Vaginal bleeding
Gynecology following
Transvaginal ultrasound pending
left hip pain
check hipxray,pelvis xray
hyperlipidemia
- hold atorvastatin
permanent atrial fibrillation
EKG: ATRIAL FIBRILLATION
ST and T WAVE ABNORMALITY, CONSIDER LATERAL ISCHEMIA
- hold Eliquis
chronic anemia
- appears at baseline
- monitor H/H
chronic kidney disease 3b
BUN 18, Creat 1.4
- appears to be baseline
- monitor BMP
GERD
- continue pantoprazole
Chronic diastolic CHF
ECHO (04/11/2023): Normal left ventricular chamber size. Mild concentric left ventricular hypertrophy. Normal left ventricular systolic function. Left ventricular ejection fraction is 55-60%. Diastolic function indeterminate.
Normal right ventricular size and function.
Indexed LA volume is mildly abnormal (35-41 mL/m2).
Mitral annular calcification. Mild mitral regurgitation.
Aortic sclerosis without stenosis.
Mild tricuspid regurgitation. Estimated pulmonary artery pressure of 25-30 mmHg. Assuming a right atrial pressure of 3 mmHg.
Compared to the previous echo 03/21/22, there is no significant change.
- daily weights
anxiety/depression
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
Code status: full code
DVT prophylaxis: SCDs
PT/OT
I spent a total of 52 minutes with the patient or on the floor. More than 50% of this time involved counseling and coordination of care.
Anticipated Discharge: > 48 hours
Subjective/Interval History
-
Date of Service: November 29, 2024
Objective Data
-
Labs:
Laboratory Results
11/29/24
08:09
WBC 11.8 H
Hgb 10.0 L
Hct 31.3 L
Plt Count 407 H
Sodium 139
Potassium 4.4
Chloride 105
Carbon Dioxide 23
BUN 17
Creatinine 1.2 H
Glucose 101 H
Calcium 9.7
Total Bilirubin 4.8 H
AST 916 H*
ALT 810 H*
Alkaline Phosphatase 2252 H
Vital Signs:
Vital Signs
Temp Pulse Resp BP Pulse Ox
98.1 F 73 21 116/63 97
11/29/24 12:29 11/29/24 12:29 11/29/24 12:29 11/29/24 12:29 11/29/24 12:29
I&O
11/28/24 11/29/24 11/30/24
06:59 06:59 06:59
Intake Total 360 / 360
Balance 360 / 360
--- NOTE | 2024-11-29 15:03 | W.PN.OBG.DWH ---
Today's Communication / Plan
-
- Sampling of endometrium is recommended- discussed with the patient and her daughter. This will need to be done under anesthesia as patient cannot tolerate a pelvic exam
- Patient needs cardiac and medical clearance prior to scheduling the D&C
Assessment/Plan
-
Patient is an 79yo with postmenopausal bleeding
- Pelvic US reviewed. Endometrial stripe thickened at 6mm. Sampling of the endometrium is recommended. Discussed this recommendation with patient and her daughter (daughter was on FaceTime). Patient would prefer to have this done under anesthesia as
she is not able to tolerate a pelvic exam. She would also prefer to have the procedure done during this hospital stay because she lives in assisted living and would be hard for her to make follow up. Patient will need medical and cardiac clearance.
I spoke with the hospitalist who placed a Strong Nitric Operator consult and will also check with Neurosurgery to see if she is cleared to undergo anesthesia during this admission. If the patient is cleared, will plan for a D&C as well as a Pap smear since
patient has not seen a STABLE HELPER in almost 50yrs. The risks of the procedure were discussed with both the patient and her daughter including bleeding, infection, damage to surrounding structures and need for further operations. Plan to sign the consent
once the patient is cleared
Subjective Data
-
Patient with no complaints.
Objective Data
-
Laboratory Results
11/29/24 08:09
11/29/24 08:09
Vital Signs
Temp Pulse Resp BP Pulse Ox
98.1 F 73 21 116/63 97
11/29/24 12:29 11/29/24 12:29 11/29/24 12:29 11/29/24 12:29 11/29/24 12:29
Pelvic US:
FINDINGS: Pelvic ultrasound is performed with transabdominal and endovaginal exams.
The uterus measures 4.7 x 2.0 x 3.4 cm. The endometrial stripe measures 6 mm, and is slightly heterogeneous. Top normal thickness for a postmenopausal patient with vaginal bleeding is considered 5 mm. Findings raise concern for a proliferative
process of the endometrium, with main differential considerations of endometrial polyp, endometrial hyperplasia, and endometrial carcinoma. Further evaluation is advised.
Neither ovary is able to be visualized. No gross evidence for abnormal adnexal mass. Minimal free fluid is seen in the left pelvis.
IMPRESSION: Endometrial stripe is thickened measuring 6 mm. Main differential considerations of endometrial polyp, endometrial hyperplasia, and endometrial carcinoma. Consider further evaluation to include histologic sampling.
Neither ovary is able to be visualized. No gross evidence for abnormal adnexal mass. Minimal free fluid in the left pelvis.
--- NOTE | 2024-11-29 15:17 | CON.CAR ---
Consultation
Consultation Request
Date/Time Consultation Requested: November 29, 2024
Date/Time Consultation Performed: November 29, 2024
Requesting Provider: Hospitalist
Performing Provider: Dr Jhonny Mc
Reason for Consultation: Cardiac risk assessment prior to planned surgery
Medical History
-
Chief Complaint: BARR, falls, confusion
History of Present Illness:
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 On
admission she is noted with concern for small volume acute hemorrhage in left lateral ventricle. Labs notable for WBC 11,900, platelet 488 with some chronic elevation and marked elevated LFT's with bili 4.7, AST 926, LENNOX 842, alk phos 2153. US
abdomen completed on admission with extrahepatic biliary dilatation with CBD 9.3 mm with possible distal bile duct obstruction, diffuse mild liver disease, cholelithiasis AAA 2.6cm b/l renal disease and 3.7 cm decreased echogenicity right kidney
with possible mass. MRI/MRCP pending.
At admission she has reported decreased appetite, 20 lbs wt loss, but denies nausea, vomiting, abdominal pain, diarrhea, constipation, or rectal bleeding. hx EGD/colon 2021 for anemia work up.
Also during this admission it is noted that she has postmenopausal bleeding. Pelvic US d has demonstrated endometrial stripe thickened at 6mm. Sampling of the endometrium has been recommended and cardiac consultation regarding preoperative cardiac
risk assessment prior to D&C under general anesthesia is requested
Echocardiogram April 11, 2023 finds normal left ventricular size and function with ejection fraction of 55 to 60%. Mildly enlarged left atrium. Mild mitral regurgitation. Mild tricuspid regurgitation. No significant change from March 21, 2022
CT of the head November 27, 2024:
1. SEVERE WHITE MATTER LEUKOARAIOSIS in both cerebral hemispheres.
2. 1.4 cm chronic infarct in the periventricular right frontal lobe and right basal ganglia.
3. Small chronic periventricular infarct in the left frontal lobe.
4. Small 4.3 mm focus of asymmetric increased attenuation in the dependent portion of the occipital horn of the left lateral ventricle which appears unchanged. Diagnostic possibilities are (1) asymmetric choroid plexus, (2) a small amount of
intraventricular hemorrhage, or (3) other small benign intraventricular mass.
Social History
Tobacco: Former Smoker
Alcohol: Occasional
Drug: None
Living: Alone
Employment: Retired
Family History
Family History: Reviewed & Not Pertinent
Allergies / Home Medications
Allergy/AdvReac Type Severity Reaction Status Date / Time
No Known Allergies Allergy Verified 11/27/24 11:14
�Medication �Instructions �Recorded �Confirmed �Type
atorvastatin 20 mg tablet 20 mg PO DAILY High cholesterol 12/28/21 11/27/24 History
B-complex with vitamin C 1 cap PO DAILY Supplement #30 caps 12/29/21 11/27/24 Rx
Lactobac no.2-Bifidobac no.1-S. 1 cap PO DAILY Supplement 11/27/24 11/27/24 History
thermo 112.5 billion cell capsule
(Visbiome)
acetaminophen 325 mg tablet 650 mg PO Q6HPRN PRN mild pain 11/27/24 11/27/24 History
(Tylenol)
apixaban 5 mg tablet (Eliquis) 2.5 mg PO BID Blood clot 11/27/24 11/27/24 History
prevention/tx
calcium carbonate (Calcium 600) 600 mg PO BID Supplement 11/27/24 11/27/24 History
fluoxetine 40 mg capsule 40 mg PO DAILY Mental 11/27/24 11/27/24 History
Health/Anxiety
lisinopril 2.5 mg tablet 2.5 mg PO DAILY Blood Pressure 11/27/24 11/27/24 History
metoprolol succinate 50 mg 50 mg PO DAILY Blood Pressure 11/27/24 11/27/24 History
tablet,extended release 24 hr
(Toprol XL)
Review of Systems
-
History Source: Patient
All other systems: Negative unless noted
Constitutional: Weight Loss
EENT: No Symptoms
Respiratory: No Symptoms
Cardiac: No Symptoms
Abdomen/GI: Other (Reduced appetite and weight loss)
: Other (Postmenopausal bleeding)
Musculoskeletal: No Symptoms
Skin: No Symptoms
Neurological: No Symptoms
Hematologic/Lymphatic: No Symptoms
Physical Exam
Vital Signs
Temp Pulse Resp BP Pulse Ox
98.1 F 73 21 116/63 97
11/29/24 12:29 11/29/24 12:29 11/29/24 12:29 11/29/24 12:29 11/29/24 12:29
Lab Results
11/29/24 08:09
11/29/24 08:09
Troponin I < 0.012 ng/ml 11/27/24 15:08
Physical Exam
General: Well Developed, Well Nourished, No Apparent Distress and Comfortable
HEENT: Normocephalic, Anicteric and Moist Mucous Membranes
Respiratory: Clear and Non Labored Respirations
Cardiac: S1/S2, Irregular Rhythm and Murmur (Grade 1/6 apical holosystolic murmur, no rubs, normal PMI)
Breast: Deferred by me
GI: Soft, Non Tender, Non Distended and Normal Bowel Sounds
Rectal: Deferred by Provider
Musculoskeletal: No Clubbing, No Cyanosis and No Edema
Skin: Warm and Dry
Neuro: Awake, Alert and Oriented
Psych: Calm
Impression / Plan
-
Echocardiogram April 11, 2023 finds normal left ventricular size and function with ejection fraction of 55 to 60%. Mildly enlarged left atrium. Mild mitral regurgitation. Mild tricuspid regurgitation. No significant change from March 21, 2022
CT of the head November 27, 2024:
1. SEVERE WHITE MATTER LEUKOARAIOSIS in both cerebral hemispheres.
2. 1.4 cm chronic infarct in the periventricular right frontal lobe and right basal ganglia.
3. Small chronic periventricular infarct in the left frontal lobe.
4. Small 4.3 mm focus of asymmetric increased attenuation in the dependent portion of the occipital horn of the left lateral ventricle which appears unchanged. Diagnostic possibilities are (1) asymmetric choroid plexus, (2) a small amount of
intraventricular hemorrhage, or (3) other small benign intraventricular mass.
Pelvic US November 29, 2024 finds endometrial stripe thickened at 6mm.
Abdominal ultrasound November 27, 2024
EXTRAHEPATIC BILIARY DILATATION with the common bile duct
Mild diffuse liver disease.
Abdominal MRI November 28, 2024
Cholelithiasis common bile duct is within normal limits, no obstruction, no suspicious renal mass.
Assessment/plan:
Preoperative cardiac risk is elevated.
Cardiac preoperative risk is moderate. Her cardiac specific risk does not preclude D&C with general anesthesia.
Her overall medical risk for general anesthesia needs to be further assessed and may be high given the finding of intracranial hemorrhage (acute, subacute?).
Chronic HFpEF
Euvolemic on exam
Lisinopril held due to hypotension, blood pressure has improved. Would maintain her off of lisinopril
Maintain Toprol-XL 50 mg daily
Permanent atrial fibrillation
Maintain rate control with Toprol-XL 50 mg daily
As an outpatient has been on oral anticoagulation for atrial fibrillation related thromboembolic risk reduction
Currently not anticoagulated as neurosurgery recommends waiting at least 1 week.
She has had frequent falls and is found to have intracranial hemorrhage of uncertain etiology (from prior fall?) certainly raises significant concern regarding ongoing oral anticoagulation risk.
She describes multiple falls over the course of the past 6 months often hitting her head. I do not think she is a good candidate for long-term oral anticoagulation as an outpatient can be consideration for Watchman
Postmenopausal bleeding
Pelvic US finds endometrial stripe thickened at 6mm.
Sampling of the endometrium has been recommended with D&C under general anesthesia is requested
Abnormal LFTs. Admission alkaline phosphatase 2153, ALT 842, AST 926 and total bili 4.7
Abdominal ultrasound with biliary dilation as well as suspected renal mass however MRI negative for any mass
MRI/MRCP with Cholelithiasis. CBD is within upper normal limits. No obstruction
GI following and feels this is predominantly hepatocellular injury pattern with delayed cholestatic pattern. Additional serologic testing is pending.
Multiple falls. She describes what sounds like ambulatory dysfunction. No dizziness near syncope or syncope. She describes that her legs sometimes feel very weak.
Further evaluation per primary service
Chronic anemia
Hemoglobin is been rather stable this admission, approximately 10
Chronic kidney disease stage IIIb
Abnormal CT of the head with findings of possible intracranial hemorrhage
Evaluated by neurosurgery no acute neurosurgical intervention indicated
Neurosurgery okay with resuming Eliquis in 1 week unless otherwise contraindicated
Total time spent today was 80 minutes in preparing to see the patient, seeing the patient and coordination of care. This included review of recent laboratory evaluations, cardiact testing, imaging studies, primary care rtecords, specialty
consultations, hospital records, as well as personally interviewing and examining the patient, which included discussion of their tests, review/ordering medications, and communicating with other healthcare professionals and also treatment planning
as well as counseling.
Data Reviewed
-
EKG: Tracing Personally Visualized and interpreted
Radiology: Report Reviewed by me
CT Scan: Report Reviewed by me
Ultrasound: Report Reviewed by me
MRI: Report Reviewed by me
Medical Tests (Nuc Med, Echo etc): Report Reviewed by me
Labs: Labs Reviewed by me
Old Records: Reviewed
--- NOTE | 2024-11-29 15:27 | CM ---
Alert awake patient who lives alone in a 2 story home with 7 steps to enter and bed/bathroom on first floor. She is assisted in activates of daily living by her care givers 7 days a week for [address] hours[address] .She uses a walker wheelchair
and cane.Will need PT OT for dc planning.
Kimber CHRISTOPHER in past . [facility]
Pharmacy [facility]
PCP Dr Conner
PLAN Will need PT OT Possible SNF
[2024-11-29 16:32] VITALS: BP 112/64
[2024-11-29 19:24] VITALS: BP 101/75
[2024-11-29] MEDS: LIDOCAINE 4% PATCH 1 PATCH TOPICAL (21:10)
[2024-11-29 23:52] VITALS: BP 106/70
[2024-11-30 03:21] VITALS: BP 117/71
[2024-11-30 05:37] VITALS: BMI 26.4
[2024-11-30 07:51] VITALS: BP 141/85
[2024-11-30] MEDS: VISBIOME 1 CAP PO (08:43)
[2024-11-30] MEDS: B COMPLEX w/VITAMIN C 1 CAPLET PO (08:43)
[2024-11-30] MEDS: TOPROL XL 50 MG PO (08:43)
[2024-11-30] MEDS: PROZAC 40 MG PO (08:43)
[2024-11-30] MEDS: OSCAL CAL 500 500 MG PO (08:43)
[2024-11-30 09:10] LABS: % Basophils 0.6 % (0-2); % Eosinophils 8.8 % (0-6); % Immature Granulocytes 0.4 % (0-0.5); % Lymphocytes 18.4 % (20.5-51.1); % Monocytes 11.3 % (1.7-9.3); % Neutrophils 60.5 % (42.2-75.2); Absolute Basophils 0.1 10^3/uL (0-0.2); Absolute Lymphocytes 2.1 10^3/uL (1.2-3.4); Absolute Monocytes 1.3 10^3/uL (0.1-0.6); Absolute Neutrophils 6.8 10^3/uL (1.4-6.5); Hematocrit 30.2 % (37.0-47.0); Hemoglobin 10.2 g/dL (12.0-16.0); Mean Corp Hgb Conc. 33.8 g/dL (33.0-37.0); Mean Corpuscular Hgb 31.1 pg (27.0-31.0); Mean Corpuscular Volume 92.1 fL (81.0-99.0); Mean Platelet Volume 9.3 fL (7.4-10.4); Nucleated Red Blood Cells % 0 %; Platelet Count 408 10^3/uL (130-400); Red Blood Cell Count 3.28 10^6/uL (4.20-5.40); Red Cell Dist. Width 17.6 % (11.5-14.5); White Blood Cell Count 11.2 10^3/uL (4.8-10.8)
[2024-11-30 09:18] LABS: INR 0.98; PT 13.3 Sec (11.4-14.6)
[2024-11-30 09:52] LABS: ALT (SGPT) 807 U/L (0-35); AST (SGOT) 911 U/L (14-36); Albumin 3.3 g/dl (3.5-5.0); Alkaline Phosphatase 2132 U/L (38-126); Blood Urea Nitrogen 17 mg/dl (7-17); Carbon Dioxide 25 mmol/L (22-30); Chloride 106 mmol/L (98-107); Estimated Creatinine Clearance 33 ml/min; Glucose 109 mg/dl (70-99); Potassium 4.4 mmol/L (3.5-5.1); Sodium 139 mmol/L (135-145); Total Bilirubin 4.5 mg/dl (0.2-1.3); Total Protein 6.8 g/dl (6.3-8.2); eGFR 45.48
--- NOTE | 2024-11-30 10:37 | W.PN.HOSP.TC ---
Today's Communication/Plan
-
Monitor vitals
See plan
Continue to monitor LFTs
Moderate risk for general anesthesia for D&C
Monitor hemoglobin
PT/OT
Assessment / Plan
Assessment / Plan
General: Well Developed, Well Nourished, No Apparent Distress, Comfortable and Conversant
HEENT: NormoCephalic, Moist mucous membranes, Atraumatic, PERRLA, Barnhart Conjunctivae, Nose Appears Normal and Ears Appear Normal
Respiratory: Clear and Non Labored Respirations
Cardiac: S1/S2 and Regular Rhythm; No Murmur or Rub
GI: Soft, Non Tender, Non Distended and Normal Bowel Sounds
Musculoskeletal: No Edema
Neuro: Awake, Alert, AO x 3, No Motor Deficits, Nonfocal/grossly intact and Cranial Nerves Intact
Psych: Calm
small volume acute hemorrhage in the left lateral ventricle
EKG: ATRIAL FIBRILLATION
ST and T WAVE ABNORMALITY, CONSIDER LATERAL ISCHEMIA
CXR: Hypoaerated lungs without consolidation.
Head CT: Findings as above most likely representing very small volume acute hemorrhage in the left lateral ventricle.
Repeat head CT unchanged
Neurosurgery following, restart Eliquis in 1 week if indicated. No acute neurosurgical intervention indicated
transaminitis
patient denies any abdominal pain
Elevated bili, LFTs
Abdominal ultrasound with biliary dilation. Abdominal ultrasound also with suspected renal mass however MRI negative for any mass
MRI/MRCP with Lisa lithiasis. CBD is within upper normal limits. No obstruction
GI following
Other serologies pending, hep panel negative; SHEILA/ASMA outpatient
Vaginal bleeding
Gynecology following
Transvaginal ultrasound Pelvic ultrasound with thickened endometrium. Gynecology recommending D&C under general anesthesia. Requested risk stratification by cardiology. Cardiology following, moderate risk per cardiology. I also spoke with
neurosurgery who has no issues with patient getting general anesthesia.
Patient is moderate risk
left hip pain
Hip x-ray without any fracture, now pain improving. Does have arthritis
hyperlipidemia
- hold atorvastatin
permanent atrial fibrillation
EKG: ATRIAL FIBRILLATION
ST and T WAVE ABNORMALITY, CONSIDER LATERAL ISCHEMIA
- hold Eliquis
chronic anemia
- appears at baseline
- monitor H/H
chronic kidney disease 3b
BUN 18, Creat 1.4
- appears to be baseline
- monitor BMP
GERD
- continue pantoprazole
Chronic diastolic CHF
ECHO (04/11/2023): Normal left ventricular chamber size. Mild concentric left ventricular hypertrophy. Normal left ventricular systolic function. Left ventricular ejection fraction is 55-60%. Diastolic function indeterminate.
Normal right ventricular size and function.
Indexed LA volume is mildly abnormal (35-41 mL/m2).
Mitral annular calcification. Mild mitral regurgitation.
Aortic sclerosis without stenosis.
Mild tricuspid regurgitation. Estimated pulmonary artery pressure of 25-30 mmHg. Assuming a right atrial pressure of 3 mmHg.
Compared to the previous echo 03/21/22, there is no significant change.
- daily weights
anxiety/depression
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
Code status: full code
DVT prophylaxis: SCDs
PT/OT
I spent a total of 51 minutes with the patient or on the floor. More than 50% of this time involved counseling and coordination of care.
Anticipated Discharge: > 48 hours
Subjective/Interval History
-
Date of Service: November 30, 2024
denies pain
Objective Data
-
Labs:
Laboratory Results
11/30/24
08:55
WBC 11.2 H
Hgb 10.2 L
Hct 30.2 L
Plt Count 408 H
PT 13.3
INR 0.98
Sodium 139
Potassium 4.4
Chloride 106
Carbon Dioxide 25
BUN 17
Creatinine 1.2 H
Glucose 109 H
Calcium 10.0
Total Bilirubin 4.5 H
AST 911 H*
ALT 807 H*
Alkaline Phosphatase 2132 H
Vital Signs:
Vital Signs
Temp Pulse Resp BP Pulse Ox
97.6 F 91 20 141/85 95
11/30/24 07:51 11/30/24 07:51 11/30/24 07:51 11/30/24 07:51 11/30/24 08:15
I&O
11/29/24 11/30/24 12/01/24
06:59 06:59 06:59
Intake Total 360 / 360 1200 / 1200
Balance 360 / 360 1200 / 1200
[2024-11-30 11:27] VITALS: BP 119/79
--- NOTE | 2024-11-30 11:36 | W.PN.CARDCBS ---
Today's Communication / Plan
-
Cardiac preoperative risk is moderate. Her cardiac specific risk does not preclude D&C with general anesthesia.
Her overall medical risk for general anesthesia needs to be further assessed and may be high given the finding of intracranial hemorrhage (acute, subacute?).
She has had frequent falls and is found to have intracranial hemorrhage of uncertain etiology (from prior fall?) certainly raises significant concern regarding ongoing oral anticoagulation risk.
She describes multiple falls over the course of the past 6 months often hitting her head.
I do not think she is a good candidate for long-term oral anticoagulation and as an outpatient there can be consideration for Watchman
I have spoken to both the patient and her daughter on 11/30/24.
Daughter reports 2 traumatic falls from ambulatory dysfunction all within the past 3 weeks.
They agree to stopping oral anticoagulation without plans for resuming anticoagulation. They are amenable to eventual outpatient discussion regarding watchman DELVIS occlusion
At this point not adding much from a cardiac standpoint. Also not certain she is proceeding to D&C. Will sign off, please call us back if we can be of further assistance.
Impression / Plan
-
Primary science education professor is Dr. Robert Hu
Echocardiogram April 11, 2023 finds normal left ventricular size and function with ejection fraction of 55 to 60%. Mildly enlarged left atrium. Mild mitral regurgitation. Mild tricuspid regurgitation. No significant change from March 21, 2022
CT of the head November 27, 2024:
1. SEVERE WHITE MATTER LEUKOARAIOSIS in both cerebral hemispheres.
2. 1.4 cm chronic infarct in the periventricular right frontal lobe and right basal ganglia.
3. Small chronic periventricular infarct in the left frontal lobe.
4. Small 4.3 mm focus of asymmetric increased attenuation in the dependent portion of the occipital horn of the left lateral ventricle which appears unchanged. Diagnostic possibilities are (1) asymmetric choroid plexus, (2) a small amount of
intraventricular hemorrhage, or (3) other small benign intraventricular mass.
Pelvic US November 29, 2024 finds endometrial stripe thickened at 6mm.
Abdominal ultrasound November 27, 2024
EXTRAHEPATIC BILIARY DILATATION with the common bile duct
Mild diffuse liver disease.
Abdominal MRI November 28, 2024
Cholelithiasis common bile duct is within normal limits, no obstruction, no suspicious renal mass.
Assessment/plan:
Preoperative cardiac risk is elevated.
Cardiac preoperative risk is moderate. Her cardiac specific risk does not preclude D&C with general anesthesia.
Her overall medical risk for general anesthesia needs to be further assessed and may be high given the finding of intracranial hemorrhage (acute, subacute?).
Chronic HFpEF
Euvolemic on exam
Lisinopril held due to hypotension, blood pressure has improved. Would maintain her off of lisinopril
Maintain Toprol-XL 50 mg daily
Permanent atrial fibrillation
Maintain rate control with Toprol-XL 50 mg daily
As an outpatient has been on oral anticoagulation for atrial fibrillation related thromboembolic risk reduction
Currently not anticoagulated as neurosurgery recommends waiting at least 1 week.
She has had frequent falls and is found to have intracranial hemorrhage of uncertain etiology (from prior fall?) certainly raises significant concern regarding ongoing oral anticoagulation risk.
She describes multiple falls over the course of the past 6 months often hitting her head.
I do not think she is a good candidate for long-term oral anticoagulation and as an outpatient there can be consideration for Watchman
I have spoken to both the patient and her daughter on 11/30/24.
Daughter reports 2 traumatic falls from ambulatory dysfunction all within the past 3 weeks.
They agree to stopping oral anticoagulation without plans for resuming anticoagulation. They are amenable to eventual outpatient discussion regarding watchman DELVIS occlusion
Postmenopausal bleeding
Pelvic US finds endometrial stripe thickened at 6mm.
Sampling of the endometrium has been recommended with D&C under general anesthesia is requested
Abnormal LFTs. Admission alkaline phosphatase 2153, ALT 842, AST 926 and total bili 4.7
Abdominal ultrasound with biliary dilation as well as suspected renal mass however MRI negative for any mass
MRI/MRCP with Cholelithiasis. CBD is within upper normal limits. No obstruction
GI following and feels this is predominantly hepatocellular injury pattern with delayed cholestatic pattern. Additional serologic testing is pending.
Multiple falls. She describes what sounds like ambulatory dysfunction. No dizziness near syncope or syncope. She describes that her legs sometimes feel very weak.
Further evaluation per primary service
Chronic anemia
Hemoglobin is been rather stable this admission, approximately 10
Chronic kidney disease stage IIIb
Abnormal CT of the head with findings of possible intracranial hemorrhage
Evaluated by neurosurgery no acute neurosurgical intervention indicated
Neurosurgery okay with resuming Eliquis in 1 week unless otherwise contraindicated
At this point, it is not clear that she is proceeding to D&C.
Will sign off, please call us back if we can be of any further assistance.
Total time spent today was 54 minutes in preparing to see the patient, seeing the patient and coordination of care. This included review of recent laboratory evaluations, cardiact testing, imaging studies, primary care rtecords, specialty
consultations, hospital records, as well as personally interviewing and examining the patient, which included discussion of their tests, review/ordering medications, and communicating with other healthcare professionals and also treatment planning
as well as counseling.
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
Subjective
Date of Service: November 30, 2024
No chest pain shortness of breath palpitations or dizziness
Objective
Labs:
11/30/24 08:55
11/30/24 08:55
Labs
Hgb 10.2 g/dL (12.0-16.0) L 11/30/24 08:55
Hct 30.2 % (37.0-47.0) L 11/30/24 08:55
Plt Count 408 10^3/uL (130-400) H 11/30/24 08:55
PT 13.3 Sec (11.4-14.6) 11/30/24 08:55
INR 0.98 11/30/24 08:55
APTT 37.8 Sec (23.4-35.0) H 11/27/24 13:17
Sodium 139 mmol/L (135-145) 11/30/24 08:55
Potassium 4.4 mmol/L (3.5-5.1) 11/30/24 08:55
BUN 17 mg/dl (7-17) 11/30/24 08:55
Creatinine 1.2 mg/dL (0.6-1.0) H 11/30/24 08:55
Glucose 109 mg/dl (70-99) H 11/30/24 08:55
Troponins
11/27/24 11/27/24
13:17 15:08
Troponin I Cancelled < 0.012
Vital Signs and I&O:
Vital Signs
Temp Pulse Resp BP Pulse Ox
98.4 F 73 22 119/79 93
11/30/24 11:27 11/30/24 11:27 11/30/24 11:27 11/30/24 11:27 11/30/24 11:27
Vital Signs
Temp Pulse Resp BP Pulse Ox
98.4 F 73 22 119/79 93
11/30/24 11:27 11/30/24 11:27 11/30/24 11:27 11/30/24 11:27 11/30/24 11:27
Intake & Output
11/28/24 11/29/24 11/30/24 12/01/24
06:59 06:59 06:59 06:59
Intake Total 360 / 360 1200 / 1200
Balance 360 / 360 1200 / 1200
Physical Exam
Physical Exam
Laying in bed, appears comfortable
Irregularly irregular with normal S1 and S2 no S3 no S4 is grade 1/6 apical holosystolic murmur no rubs
Lungs are clear to auscultation bilaterally
Extremities show trace pedal edema bilateral
--- NOTE | 2024-11-30 12:12 | W.PN.OBG.DWH ---
Today's Communication / Plan
-
- Plan for D&C tomorrow
- NPO after midnight
- Cytotec 200mcg ordered for tonight
Assessment/Plan
-
Patient is an 79yo with postmenopausal bleeding
- Another discussion was had with patient and her daughter reviewing recommendation for endometrial sampling given findings of thickened endometrium on ultrasound and postmenopausal bleeding. Patient and her daughter would like proceed with dilation
and curettage.
- Patient seen by Cardiology and given a moderate risk for anesthesia. Patient was cleared for anesthesia by neurosurgery and medicine gave her an overall moderate risk for anesthesia
- Patient consented for hysteroscopy, dilation and curettage under ultrasound guidance. Risks, benefits and alternatives discussed including bleeding, infection, damage to surrounding structures, need for future operation, uterine perforation and
risk of undergoing anesthesia. I spoke with the patient's daughter on the phone and again on FaceTime at patient's bedside when reviewing the consent. She was also counseled on the risks if she were not to undergo endometrial sampling. They both
agreed that the patient would like to proceed. She was also consented for a blood transfusion in case of emergency
- She is added to the OR schedule tomorrow with Dr. Samuels. Ultrasound aware of need for ultrasound guidance
- Patient to be NPO after midnight
- Cytotec 200mcg PO ordered to be given tonight
Subjective Data
-
No complaints.
Objective Data
-
Laboratory Results
11/30/24 08:55
11/30/24 08:55
Vital Signs
Temp Pulse Resp BP Pulse Ox
98.4 F 73 22 119/79 93
11/30/24 11:27 11/30/24 11:27 11/30/24 11:27 11/30/24 11:27 11/30/24 11:27
--- NOTE | 2024-11-30 12:31 | W.PN.GI.CBS2 ---
Today's Communication / Plan
-
continue monitoring LFT
Assessment / Plan
-
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 On
admission she is noted with concern for small volume acute hemorrhage in left lateral ventricle. Labs notable for WBC 11,900, platelet 488 with some chronic elevation and marked elevated LFT's with bili 4.7, AST 926, LENNOX 842, alk phos 2153. US
abdomen completed on admission with extrahepatic biliary dilatation with CBD 9.3 mm with possible distal bile duct obstruction, diffuse mild liver disease, cholelithiasis AAA 2.6cm b/l renal disease and 3.7 cm decreased echogenicity right kidney
with possible mass.
Serologic studies are still pending. LFT remains elevated without significant change/plateau. Will need continued monitoring of LFT (at least until improvement of transaminases).
Total Time Spent with Patient (in minutes): 35
Subjective
Subjective
Date of Service: November 30, 2024
No events o/n. Denies abdominal pain.
Objective
Data Reviewed
Laboratory Data:
Laboratory Results
11/30/24 08:55
11/30/24 08:55
Laboratory Results
PT 13.3 Sec (11.4-14.6) 11/30/24 08:55
INR 0.98 11/30/24 08:55
APTT 37.8 Sec (23.4-35.0) H 11/27/24 13:17
Magnesium 2.1 mg/dl (1.6-2.3) 11/28/24 05:35
Total Bilirubin 4.5 mg/dl (0.2-1.3) H 11/30/24 08:55
AST 911 U/L (14-36) H* 11/30/24 08:55
ALT 807 U/L (0-35) H* 11/30/24 08:55
Alkaline Phosphatase 2132 U/L (38-126) H 11/30/24 08:55
Lipase 266 U/L (23-300) 11/27/24 15:08
Vital Signs and I&O:
Vital Signs
Temp Pulse Resp BP Pulse Ox
98.4 F 73 22 119/79 93
11/30/24 11:27 11/30/24 11:27 11/30/24 11:27 11/30/24 11:27 11/30/24 11:27
I&O
11/29/24 11/30/24 12/01/24
06:59 06:59 06:59
Intake Total 360 / 360 1200 / 1200
Balance 360 / 360 1200 / 1200
[2024-11-30 15:35] VITALS: BP 142/79
[2024-11-30 19:30] VITALS: BP 105/67
[2024-11-30] MEDS: CYTOTEC 200 MCG PO (22:51)
[2024-11-30] MEDS: LIDOCAINE 4% PATCH 1 PATCH TOPICAL (22:51)
[2024-11-30] MEDS: OSCAL CAL 500 PO (22:51)
[2024-11-30 23:20] VITALS: BP 108/74
[2024-12-01] VITALS (10 sets, daily range): BP systolic 88–134; BP diastolic 50–77; BMI 25.6
[2024-12-01] MEDS: B COMPLEX w/VITAMIN C PO (08:06)
[2024-12-01] MEDS: OSCAL CAL 500 PO (08:06)
[2024-12-01] MEDS: PROZAC 40 MG PO (08:06)
[2024-12-01] MEDS: VISBIOME PO (08:06)
[2024-12-01] MEDS: TOPROL XL 50 MG PO (08:06)
[2024-12-01 09:54] LABS: % Basophils 0.5 % (0-2); % Eosinophils 7.8 % (0-6); % Immature Granulocytes 0.5 % (0-0.5); % Lymphocytes 21.5 % (20.5-51.1); % Monocytes 11.8 % (1.7-9.3); % Neutrophils 57.9 % (42.2-75.2); Absolute Basophils 0.1 10^3/uL (0-0.2); Absolute Immature Granulocytes 0.1 10^3/uL (0-0.05); Absolute Lymphocytes 2.7 10^3/uL (1.2-3.4); Absolute Monocytes 1.5 10^3/uL (0.1-0.6); Absolute Neutrophils 7.4 10^3/uL (1.4-6.5); Hematocrit 30.1 % (37.0-47.0); Hemoglobin 9.9 g/dL (12.0-16.0); Mean Corp Hgb Conc. 32.9 g/dL (33.0-37.0); Mean Corpuscular Hgb 29.6 pg (27.0-31.0); Mean Corpuscular Volume 90.1 fL (81.0-99.0); Mean Platelet Volume 10.9 fL (7.4-10.4); Nucleated Red Blood Cells % 0 %; Platelet Count 353 10^3/uL (130-400); Red Blood Cell Count 3.34 10^6/uL (4.20-5.40); Red Cell Dist. Width 18.1 % (11.5-14.5); White Blood Cell Count 12.8 10^3/uL (4.8-10.8)
--- NOTE | 2024-12-01 10:19 | W.IMMPOSTOP ---
Surgical Immed Post Op Note
-
Primary Surgeon: Brandi Samuels DO
Assisting Surgeon: none
Pre-op Diagnosis: Postmenopausal bleeding, thickened endometrium
Post-op Diagnosis: same; endometrial polypoid lesion x 2; cervical lesion
Procedure Performed: Hysteroscopy D&C, polypectomy x 2, LEEP procedure with ECC
Anesthesia Type: General, LMA, Dr. Andrade
Specimen / Cultures: 1. Endocervical curetting 2. Endometrial curettings with endometrial polypoid lesions 3. Pap smear 4. Cervical LEEP upper half of cervix (suture at 12:00) 5. Cervical LEEP lower half of cervix (suture at 6:00)
Estimated Blood Loss: 10 mL
Complications: None
Operative Findings: Cervix appears to have a lesion extending on the lower half of the cervix. Endocervical canal appears normal. Uterus sounded to 5.5 cm, bilateral tubal ostia visualized. 2 polypoid lesions are noted with slight irregularity of
surface in the endometrial cavity.
Counts correct x 2.
[2024-12-01 10:40] LABS: ALT (SGPT) 638 U/L (0-35); AST (SGOT) 642 U/L (14-36); Albumin 3.5 g/dl (3.5-5.0); Blood Urea Nitrogen 17 mg/dl (7-17); Calcium 9.4 mg/dl (8.4-10.2); Carbon Dioxide 22 mmol/L (22-30); Chloride 102 mmol/L (98-107); Estimated Creatinine Clearance 33 ml/min; Glucose 91 mg/dl (70-99); Potassium 4.2 mmol/L (3.5-5.1); Sodium 136 mmol/L (135-145); Total Bilirubin 3.9 mg/dl (0.2-1.3); Total Protein 6.7 g/dl (6.3-8.2); eGFR 45.48
--- NOTE | 2024-12-01 11:05 | PN.CDI ---
CDI
- -
CDI:
Physician Documentation Request
Admit Date: 11/27/24 16:49
Dear Doctor Norman,
Please review the following and provide your response in the progress notes.
Clinical Indicators:
Pt admitted with small volume acute hemorrhage in the left lateral ventricle.
ER Note: ' ..had a fall 10 days ago backwards with head strike, no evaluation and then 2 days ago also with a fall forwards, head strike, transient confusion..'
Based on the above, could you clarify in the progress notes, the appropriate diagnosis, if significant, that supports the above abnormalities and additional evaluation, monitoring and/or treatment rendered:
Acute Traumatic Hemorrhage
Acute Non-traumatic Hemorrhage
Other
Unable to determine
Use of terms such as suspected, likely, concern for, or probable (associated with a specific diagnosis that is being evaluated, monitored, or treated as if it exists) are acceptable and can be coded in the inpatient setting, when documented at the
time of discharge.
Thank you,
Sameera Mayes RN, BSN
CDI Specialist
[facility]
Please use your independent medical judgment in providing your response.
--- NOTE | 2024-12-01 11:19 | PN.CDI ---
CDI
- -
CDI:
Physician Documentation Request
Admit Date: 11/27/24 16:49
Dear Doctor Norman,
Please review the following and provide your response in the progress notes.
Clinical Indicators:
Pt admitted with small volume acute hemorrhage in the left lateral ventricle.
ER Note: ' ..had a fall 10 days ago backwards with head strike, no evaluation and then 2 days ago also with a fall forwards, head strike, transient confusion..'
Based on the above, could you clarify in the progress notes, the appropriate diagnosis, if significant, that supports the above abnormalities and additional evaluation, monitoring and/or treatment rendered:
Acute Traumatic Hemorrhage in the left ventricle
Acute Non-traumatic Hemorrhage in the left ventricle
Other
Unable to determine
Use of terms such as suspected, likely, concern for, or probable (associated with a specific diagnosis that is being evaluated, monitored, or treated as if it exists) are acceptable and can be coded in the inpatient setting, when documented at the
time of discharge.
Thank you,
Sameera Mayes RN, BSN
CDI Specialist
[place] [facility]
Please use your independent medical judgment in providing your response.
--- NOTE | 2024-12-01 11:20 | PN.CDI ---
CDI
- -
CDI:
Physician Documentation Request
Admit Date: 11/27/24 16:49
Dear Doctor Norman,
Please review the following and provide your response in the progress notes.
Clinical Indicators:
Pt admitted with small volume acute hemorrhage in the left lateral ventricle
H&P: ' # permanent Atrial fibrillation-hold Eliquis'
11/30 Cardiology: ' She has had frequent falls and is found to have intracranial hemorrhage of uncertain etiology (from prior fall?) certainly raises significant concern regarding ongoing oral anticoagulation risk.
She describes multiple falls over the course of the past 6 months often hitting her head.
Please clarify the relationship between these conditions:
Yes, small volume acute hemorrhage in the left ventricle is related to/associated with/exacerbated by Eliquis.
No, small volume acute hemorrhage in the left ventricle is not related to/associated with/exacerbated by Eliquis
Other
Use of terms such as suspected, likely, concern for, or probable (associated with a specific diagnosis that is being evaluated, monitored, or treated as if it exists) are acceptable and can be coded in the inpatient setting, when documented at the
time of discharge.
Thank you,
Sameera Mayes RN, BSN
CDI Specialist
[place] [facility]
Please use your independent medical judgment in providing your response.
[2024-12-01 11:25] LABS: Alkaline Phosphatase 2045 U/L (38-126)
--- NOTE | 2024-12-01 11:32 | W.PN.HOSP.TC ---
Today's Communication/Plan
-
Monitor vitals
See plan
Status post hysteroscopy
Await pathology
Monitor off Eliquis
Monitor hemoglobin
PT/OT
Assessment / Plan
Assessment / Plan
General: Well Developed, Well Nourished, No Apparent Distress, Comfortable and Conversant
HEENT: NormoCephalic, Moist mucous membranes, Atraumatic, PERRLA
Respiratory: Clear and Non Labored Respirations
Cardiac: S1/S2 and Regular Rhythm; No Murmur or Rub
GI: Soft, Non Tender, Non Distended and Normal Bowel Sounds
Musculoskeletal: No Edema
Neuro: Awake, Alert, AO x 3, No Motor Deficits, Nonfocal/grossly intact and Cranial Nerves Intact
Psych: Calm
small volume acute hemorrhage in the left lateral ventricle
unknown if 2/2 trauma
unknown if exacerbated by eliquis
EKG: ATRIAL FIBRILLATION
ST and T WAVE ABNORMALITY, CONSIDER LATERAL ISCHEMIA
CXR: Hypoaerated lungs without consolidation.
Head CT: Findings as above most likely representing very small volume acute hemorrhage in the left lateral ventricle.
Repeat head CT unchanged
Neurosurgery following, restart Eliquis in 1 week if indicated. No acute neurosurgical intervention indicated. however cardiology spoke with family and plan to stop AC
transaminitis
patient denies any abdominal pain
Elevated bili, LFTs
Abdominal ultrasound with biliary dilation. Abdominal ultrasound also with suspected renal mass however MRI negative for any mass
MRI/MRCP with Lisa lithiasis. CBD is within upper normal limits. No obstruction
GI following
Other serologies pending, hep panel negative; SHEILA/ASMA outpatient
Vaginal bleeding
Gynecology following
Transvaginal ultrasound Pelvic ultrasound with thickened endometrium. Gynecology recommending D&C under general anesthesia. Requested risk stratification by cardiology. Cardiology following, moderate risk per cardiology. I also spoke with
neurosurgery who has no issues with patient getting general anesthesia.
Patient is moderate risk
s/p Hysteroscopy D&C, polypectomy x 2, LEEP procedure with ECC. await pathology of biopsy of cervical lesion
left hip pain
Hip x-ray without any fracture, now pain improving. Does have arthritis
hyperlipidemia
- hold atorvastatin
permanent atrial fibrillation
EKG: ATRIAL FIBRILLATION
ST and T WAVE ABNORMALITY, CONSIDER LATERAL ISCHEMIA
- hold Eliquis
chronic anemia
- appears at baseline
- monitor H/H
chronic kidney disease 3b
BUN 18, Creat 1.4
- appears to be baseline
- monitor BMP
GERD
- continue pantoprazole
Chronic diastolic CHF
ECHO (04/11/2023): Normal left ventricular chamber size. Mild concentric left ventricular hypertrophy. Normal left ventricular systolic function. Left ventricular ejection fraction is 55-60%. Diastolic function indeterminate.
Normal right ventricular size and function.
Indexed LA volume is mildly abnormal (35-41 mL/m2).
Mitral annular calcification. Mild mitral regurgitation.
Aortic sclerosis without stenosis.
Mild tricuspid regurgitation. Estimated pulmonary artery pressure of 25-30 mmHg. Assuming a right atrial pressure of 3 mmHg.
Compared to the previous echo 03/21/22, there is no significant change.
- daily weights
anxiety/depression
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
Code status: full code
DVT prophylaxis: SCDs
PT/OT
Anticipated Discharge: Within 24 hours
Subjective/Interval History
-
Date of Service: December 01, 2024
has some pain
Objective Data
-
Labs:
Laboratory Results
12/01/24
08:16
WBC 12.8 H
Hgb 9.9 L
Hct 30.1 L
Plt Count 353
Sodium 136
Potassium 4.2
Chloride 102
Carbon Dioxide 22
BUN 17
Creatinine 1.2 H
Glucose 91
Calcium 9.4
Total Bilirubin 3.9 H
AST 642 H*
ALT 638 H*
Alkaline Phosphatase 2045 H
Vital Signs:
Vital Signs
Temp Pulse Resp BP Pulse Ox
98 F 83 14 88/50 99
12/01/24 11:00 12/01/24 10:16 12/01/24 10:16 12/01/24 10:16 12/01/24 11:00
I&O
11/30/24 12/01/24 12/02/24
06:59 06:59 06:59
Intake Total 1200 / 1200 600 / 600
Balance 1200 / 1200 600 / 600
--- NOTE | 2024-12-01 12:31 | W.PN.GI.CBS2 ---
Addendum entered and electronically signed by Adrián Coffey MD 12/01/24 15:46:
I saw and examined the patient.
The PA's note was reviewed and I agree with the note.
Comment:
LFT (transaminases) are coming down. Bili and alk phos are also coming down. Serologic testing pending. If LFT continues to fall tomorrow, then can f/u as OP.
Original Note:
Today's Communication / Plan
-
as per plan
Assessment / Plan
-
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 On
admission she is noted with concern for small volume acute hemorrhage in left lateral ventricle. Labs notable for WBC 11,900, platelet 488 with some chronic elevation and marked elevated LFT's with bili 4.7, AST 926, LENNOX 842, alk phos 2153. US
abdomen completed on admission with extrahepatic biliary dilatation with CBD 9.3 mm with possible distal bile duct obstruction, diffuse mild liver disease, cholelithiasis AAA 2.6cm b/l renal disease and 3.7 cm decreased echogenicity right kidney
with possible mass.
Impression:
Elevated LFTs
--> LFTs trending down. T Bili 3.9 (4.5, 4.8, 4.5, 4.7), AST 642 (911, 916, 1089, 926), ALT 638 (807, 810, 847, 842) Alk Phos 2045 (2132, 2252, 2113, 2153)
--> No abdominal pain
-->MRI with cholelithiasis but no CBD stone, no masses seen. Viral Hep Panel negative. no ETOH use, no documented hypotension, denies supplement or new medications, no recent antibiotics, no hx liver problems in past
Plan:
-Await pending SHEILA, AMA, Alpha 1 antitrypsin, Soluble Liver Ag, F actin IgG Ab and Celiac panel.
-Trend LFTs to ensure continue trend down.
Subjective
Subjective
Date of Service: December 01, 2024
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 Patient denies any GI complaints at present time. She is oriented to person, place and month and year. LFTs trending down. T Bili 3.9 (4.5, 4.8, 4.5, 4.7), AST 642
(911, 916, 1089, 926), ALT 638 (807, 810, 847, 842) Alk Phos 2045 (2132, 2252, 2113, 2153) Viral hepatitis panel negative, MRI Abdomen with and without contrast without any abnormality. SHEILA, AMA, Alpha 1 antitrypsin, Soluble Liver Ag, F actin IgG Ab
and Celiac panel pending.
Objective
Data Reviewed
Laboratory Data:
Laboratory Results
12/01/24 08:16
12/01/24 08:16
Laboratory Results
PT 13.3 Sec (11.4-14.6) 11/30/24 08:55
INR 0.98 11/30/24 08:55
APTT 37.8 Sec (23.4-35.0) H 11/27/24 13:17
Magnesium 2.1 mg/dl (1.6-2.3) 11/28/24 05:35
Total Bilirubin 3.9 mg/dl (0.2-1.3) H 12/01/24 08:16
AST 642 U/L (14-36) H* 12/01/24 08:16
ALT 638 U/L (0-35) H* 12/01/24 08:16
Alkaline Phosphatase 2045 U/L (38-126) H 12/01/24 08:16
Lipase 266 U/L (23-300) 11/27/24 15:08
Vital Signs and I&O:
Vital Signs
Temp Pulse Resp BP Pulse Ox
97.7 F 89 14 103/66 99
12/01/24 12:06 12/01/24 12:06 12/01/24 12:06 12/01/24 12:06 12/01/24 12:06
I&O
11/30/24 12/01/24 12/02/24
06:59 06:59 06:59
Intake Total 1200 / 1200 600 / 600
Balance 1200 / 1200 600 / 600
Physical Exam
Physical Exam
Cardiology: Normal Sinus Rhythm
Pulmonary: Clear (anterior)
GI: Soft, Non Distended, Non Tender and Normal Bowel Sounds
Extremities: No Edema
Neuro: Non Focal
--- NOTE | 2024-12-01 15:51 | CM ---
Pt postop . Pt sleeping on CM rounds.
Will need PT reordered postop .
Appears pt will need SNF at dc.
Will need PAc Data and auth for SNF..
PLAN Need PT OT for dc planning .
--- NOTE | 2024-12-01 18:08 | W.PN.UPDATE ---
Update Note
Progress Note Update
Postop check:
Went to see Evelina since she was too sedated in PACU for conversation.
Reviewed operative findings with her. Two polypoid lesions removed from uterus. Cervical lesion excised from cervix.
Discussed will need pathology report for final results.
Explained the Monsels paste placed onto cervix after LEEP procedure may cause discolored discharge for a few days to a few wks. Light spotting may occur. She should not have heavy bleeding saturating a maxi pad hourly or passing large clots.
Nothing should be placed into vagina.
She may anticipate some pelvic cramping.
Anticoagulation should not be restarted for at least 24 hrs after procedure.
I [place] Texted Sergio Austin MD re: op findings after surgery this am.
I also called and spoke with Evelina's daughter, Radha after surgery.
[2024-12-01] MEDS: OSCAL CAL 500 500 MG PO (19:06)
[2024-12-01 20:22] LABS: Alpha-1-Antitrypsin 226 mg/dL (90-200)
[2024-12-01] MEDS: LIDOCAINE 4% PATCH 1 PATCH TOPICAL (22:17)
[2024-12-02] VITALS (7 sets, daily range): BP systolic 102–172; BP diastolic 68–81; PULSE 87; O2SAT 96; BMI 26.2
[2024-12-02 01:18] LABS: Mitochondrial M2 Ab, IgG 12.2 Units (0.0-24.9)
[2024-12-02 01:25] LABS: F-Actin Antibody IgG 14 Units (0-19)
[2024-12-02 01:29] LABS: ANA, IgG Reflex to HEp-2 None Detected (None Detected)
--- NOTE | 2024-12-02 06:38 | W.PN.GI.CBS2 ---
Today's Communication / Plan
-
Please see assessment and plan for details.
Assessment / Plan
-
1. Elevated LFTs: In a marked necroinflammatory pattern, with so far negative workup including viral hepatitis serologies, MRI, AMA, overall trending down without signs of acute liver failure. Most likely etiologies would be low flow/shock liver
which she more likely given episodes of falling prior to admission. Drug-induced liver injury is also possible though seems less likely. Again LFTs are improving and overall has been doing well. His LFTs continue improved today is okay to DC from
GI standpoint, repeat LFTs in 2 weeks and follow-up in the office for further evaluation.
Subjective
Subjective
Date of Service: December 02, 2024
Patient feeling well, no pain, no new events overnight. Operative note reported. No nausea, vomiting, fever or chills.
Objective
Data Reviewed
Laboratory Data:
Laboratory Results
PT 13.3 Sec (11.4-14.6) 11/30/24 08:55
INR 0.98 11/30/24 08:55
APTT 37.8 Sec (23.4-35.0) H 11/27/24 13:17
Magnesium 2.1 mg/dl (1.6-2.3) 11/28/24 05:35
Total Bilirubin 3.9 mg/dl (0.2-1.3) H 12/01/24 08:16
AST 642 U/L (14-36) H* 12/01/24 08:16
ALT 638 U/L (0-35) H* 12/01/24 08:16
Alkaline Phosphatase 2045 U/L (38-126) H 12/01/24 08:16
Lipase 266 U/L (23-300) 11/27/24 15:08
Vital Signs and I&O:
Vital Signs
Temp Pulse Resp BP Pulse Ox
97.8 F 74 18 106/66 96
12/01/24 23:20 12/01/24 23:20 12/01/24 23:20 12/01/24 23:20 12/01/24 23:20
I&O
11/30/24 12/01/24 12/02/24
06:59 06:59 06:59
Intake Total 1200 / 1200 600 / 600 480 / 480
Balance 1200 / 1200 600 / 600 480 / 480
Physical Exam
Physical Exam
General: NAD
Abdomen: normal bowel sounds, soft, no tenderness, no masses or bruits, no ascites
[2024-12-02 08:42] LABS: % Basophils 0.2 % (0-2); % Immature Granulocytes 0.7 % (0-0.5); % Monocytes 6.9 % (1.7-9.3); % Neutrophils 82.2 % (42.2-75.2); Absolute Immature Granulocytes 0.1 10^3/uL (0-0.05); Absolute Lymphocytes 1.9 10^3/uL (1.2-3.4); Absolute Monocytes 1.3 10^3/uL (0.1-0.6); Absolute Neutrophils 15.4 10^3/uL (1.4-6.5); Hematocrit 29.5 % (37.0-47.0); Hemoglobin 9.9 g/dL (12.0-16.0); Mean Corp Hgb Conc. 33.6 g/dL (33.0-37.0); Mean Corpuscular Hgb 30.7 pg (27.0-31.0); Mean Corpuscular Volume 91.3 fL (81.0-99.0); Mean Platelet Volume 9.7 fL (7.4-10.4); Nucleated Red Blood Cells % 0 %; Platelet Count 393 10^3/uL (130-400); Red Blood Cell Count 3.23 10^6/uL (4.20-5.40); Red Cell Dist. Width 17.7 % (11.5-14.5); White Blood Cell Count 18.8 10^3/uL (4.8-10.8)
[2024-12-02 09:21] LABS: ALT (SGPT) 508 U/L (0-35); AST (SGOT) 422 U/L (14-36); Albumin 3.4 g/dl (3.5-5.0); Blood Urea Nitrogen 28 mg/dl (7-17); Calcium 9.7 mg/dl (8.4-10.2); Carbon Dioxide 21 mmol/L (22-30); Chloride 103 mmol/L (98-107); Estimated Creatinine Clearance 31 ml/min; Glucose 132 mg/dl (70-99); Potassium 4.4 mmol/L (3.5-5.1); Sodium 136 mmol/L (135-145); Total Bilirubin 2.9 mg/dl (0.2-1.3); Total Protein 6.6 g/dl (6.3-8.2); eGFR 41.31
[2024-12-02 09:35] LABS: Alkaline Phosphatase 1813 U/L (38-126)
[2024-12-02] MEDS: OSCAL CAL 500 500 MG PO (10:22)
[2024-12-02] MEDS: PROZAC 40 MG PO (10:22)
[2024-12-02] MEDS: B COMPLEX w/VITAMIN C 1 CAPLET PO (10:22)
[2024-12-02] MEDS: TOPROL XL 50 MG PO (10:22)
[2024-12-02] MEDS: VISBIOME 1 CAP PO (10:22)
--- NOTE | 2024-12-02 10:27 | W.PN.HOSP.TC ---
Today's Communication/Plan
-
Monitor vital signs see plan
Leukocytosis noted, continue to monitor
Monitor LFTs
PT/OT
Discussed with daughter over the phone
DVT prophylaxis
Avoid hypotension
Assessment / Plan
Assessment / Plan
General: Well Developed, Well Nourished, No Apparent Distress, Comfortable and Conversant
HEENT: NormoCephalic, Moist mucous membranes, Atraumatic, PERRLA
Respiratory: Clear and Non Labored Respirations
Cardiac: S1/S2 and Regular Rhythm; No Murmur or Rub
GI: Soft, Non Tender, Non Distended and Normal Bowel Sounds
Musculoskeletal: No Edema
Neuro: Awake, Alert, AO x 3, No Motor Deficits, Nonfocal/grossly intact and Cranial Nerves Intact
Psych: Calm
small volume acute hemorrhage in the left lateral ventricle
unknown if 2/2 trauma
unknown if exacerbated by eliquis
EKG: ATRIAL FIBRILLATION
ST and T WAVE ABNORMALITY, CONSIDER LATERAL ISCHEMIA
CXR: Hypoaerated lungs without consolidation.
Head CT: Findings as above most likely representing very small volume acute hemorrhage in the left lateral ventricle.
Repeat head CT unchanged
Neurosurgery following, restart Eliquis in 1 week if indicated. No acute neurosurgical intervention indicated. however cardiology spoke with family and plan to stop AC
Leukocytosis, acute on chronic
Continue to monitor, no signs of infection at this time
transaminitis
patient denies any abdominal pain
Elevated bili, LFTs
Abdominal ultrasound with biliary dilation. Abdominal ultrasound also with suspected renal mass however MRI negative for any mass
MRI/MRCP with Lisa lithiasis. CBD is within upper normal limits. No obstruction
GI following
Other serologies pending, hep panel negative; SHEILA/ASMA outpatient
Vaginal bleeding
Gynecology following
Transvaginal ultrasound Pelvic ultrasound with thickened endometrium. Gynecology recommending D&C under general anesthesia. Requested risk stratification by cardiology. Cardiology following, moderate risk per cardiology. I also spoke with
neurosurgery who has no issues with patient getting general anesthesia.
Patient is moderate risk
s/p Hysteroscopy D&C, polypectomy x 2, LEEP procedure with ECC. await pathology of biopsy of cervical lesion
left hip pain
Hip x-ray without any fracture, now pain improving. Does have arthritis
hyperlipidemia
- hold atorvastatin
permanent atrial fibrillation
EKG: ATRIAL FIBRILLATION
ST and T WAVE ABNORMALITY, CONSIDER LATERAL ISCHEMIA
- hold Eliquis
chronic anemia
- appears at baseline
- monitor H/H
chronic kidney disease 3b
BUN 18, Creat 1.4
- appears to be baseline
- monitor BMP
GERD
- continue pantoprazole
Chronic diastolic CHF
ECHO (04/11/2023): Normal left ventricular chamber size. Mild concentric left ventricular hypertrophy. Normal left ventricular systolic function. Left ventricular ejection fraction is 55-60%. Diastolic function indeterminate.
Normal right ventricular size and function.
Indexed LA volume is mildly abnormal (35-41 mL/m2).
Mitral annular calcification. Mild mitral regurgitation.
Aortic sclerosis without stenosis.
Mild tricuspid regurgitation. Estimated pulmonary artery pressure of 25-30 mmHg. Assuming a right atrial pressure of 3 mmHg.
Compared to the previous echo 03/21/22, there is no significant change.
- daily weights
anxiety/depression
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
Code status: full code
DVT prophylaxis: SCDs; heparin
PT/OT
Anticipated Discharge: Within 24 hours
Subjective/Interval History
-
Date of Service: December 02, 2024
denies pain
Objective Data
-
Labs:
Laboratory Results
12/02/24
07:51
WBC 18.8 H
Hgb 9.9 L
Hct 29.5 L
Plt Count 393
Sodium 136
Potassium 4.4
Chloride 103
Carbon Dioxide 21 L
BUN 28 H
Creatinine 1.3 H
Glucose 132 H
Calcium 9.7
Total Bilirubin 2.9 H
AST 422 H
ALT 508 H*
Alkaline Phosphatase 1813 H
Vital Signs:
Vital Signs
Temp Pulse Resp BP Pulse Ox
97.3 F 81 14 132/78 96
12/02/24 07:29 12/02/24 07:29 12/02/24 07:29 12/02/24 07:29 12/02/24 07:29
I&O
12/01/24 12/02/24 12/03/24
06:59 06:59 06:59
Intake Total 600 / 600 480 / 480
Balance 600 / 600 480 / 480
[2024-12-02] MEDS: OSCAL CAL 500 PO (20:20)
[2024-12-02] MEDS: LIDOCAINE 4% PATCH 1 PATCH TOPICAL (20:20)
[2024-12-02] MEDS: HEPARIN 5000 UNITS SC (20:20)
[2024-12-03 04:00] VITALS: BP 177/70
--- NOTE | 2024-12-03 05:47 | DOWNTIME ---
There was a [employer] Operator Downtime on 12/03/2024 from 0100 to 12/04/2023 at 0420 . Downtime documentation of patient's care, including medication administrations, has been reconciled in the electronic record per guidelines. Refer to the
patient's paper chart under the miscellaneous tab to see printed paper medication records and downtime forms.
[2024-12-03 06:00] VITALS: BMI 25.1
--- NOTE | 2024-12-03 06:27 | W.PN.GI.CBS2 ---
Today's Communication / Plan
-
Please see assessment and plan for details.
Assessment / Plan
-
1. Elevated LFTs: In a marked necroinflammatory pattern, with so far negative workup including viral hepatitis serologies, MRI, AMA, overall trending down without signs of acute liver failure. Most likely etiologies would be low flow/shock liver
which she more likely given episodes of falling prior to admission and some relative documented hypotension earlier. Drug-induced liver injury is also possible though seems less likely. Again LFTs are improving and overall has been doing well. If
LFTs continue improved today is okay to DC from GI standpoint, repeat LFTs in 2 weeks and follow-up in the office for further evaluation.
Subjective
Subjective
Date of Service: December 03, 2024
Patient feeling okay, no abdominal pain, nausea or vomiting, tolerating diet without difficulty.
Objective
Data Reviewed
Laboratory Data:
Laboratory Results
PT 13.3 Sec (11.4-14.6) 11/30/24 08:55
INR 0.98 11/30/24 08:55
APTT 37.8 Sec (23.4-35.0) H 11/27/24 13:17
Magnesium 2.1 mg/dl (1.6-2.3) 11/28/24 05:35
Total Bilirubin 2.9 mg/dl (0.2-1.3) H 12/02/24 07:51
AST 422 U/L (14-36) H 12/02/24 07:51
ALT 508 U/L (0-35) H* 12/02/24 07:51
Alkaline Phosphatase 1813 U/L (38-126) H 12/02/24 07:51
Lipase 266 U/L (23-300) 11/27/24 15:08
Vital Signs and I&O:
Vital Signs
Temp Pulse Resp BP Pulse Ox
97.9 F 73 17 177/70 99
12/03/24 04:00 12/03/24 04:00 12/03/24 04:00 12/03/24 04:00 12/03/24 04:00
I&O
12/01/24 12/02/24 12/03/24
06:59 06:59 06:59
Intake Total 600 / 600 480 / 480 600 / 600
Balance 600 / 600 480 / 480 600 / 600
Physical Exam
Physical Exam
General: NAD
Abdomen: normal bowel sounds, soft, no tenderness, no masses or bruits, no ascites
[2024-12-03 06:33] LABS: % Basophils 0.2 % (0-2); % Eosinophils 0.7 % (0-6); % Immature Granulocytes 0.4 % (0-0.5); % Lymphocytes 14.6 % (20.5-51.1); % Monocytes 8.5 % (1.7-9.3); % Neutrophils 75.6 % (42.2-75.2); Absolute Eosinophils 0.1 10^3/uL (0-0.7); Absolute Immature Granulocytes 0.1 10^3/uL (0-0.05); Absolute Lymphocytes 2.8 10^3/uL (1.2-3.4); Absolute Monocytes 1.6 10^3/uL (0.1-0.6); Absolute Neutrophils 14.2 10^3/uL (1.4-6.5); Hematocrit 28.9 % (37.0-47.0); Hemoglobin 9.4 g/dL (12.0-16.0); Mean Corp Hgb Conc. 32.5 g/dL (33.0-37.0); Mean Corpuscular Hgb 30.2 pg (27.0-31.0); Mean Corpuscular Volume 92.9 fL (81.0-99.0); Nucleated Red Blood Cells % 0 %; Platelet Count 397 10^3/uL (130-400); Red Blood Cell Count 3.11 10^6/uL (4.20-5.40); Red Cell Dist. Width 18.6 % (11.5-14.5); White Blood Cell Count 18.8 10^3/uL (4.8-10.8)
[2024-12-03 06:52] LABS: ALT (SGPT) 461 U/L (0-35); AST (SGOT) 353 U/L (14-36); Albumin 3.1 g/dl (3.5-5.0); Blood Urea Nitrogen 30 mg/dl (7-17); Calcium 9.5 mg/dl (8.4-10.2); Carbon Dioxide 28 mmol/L (22-30); Chloride 105 mmol/L (98-107); Estimated Creatinine Clearance 28 ml/min; Glucose 101 mg/dl (70-99); Potassium 4.4 mmol/L (3.5-5.1); Sodium 139 mmol/L (135-145); Total Bilirubin 2.1 mg/dl (0.2-1.3); Total Protein 6.2 g/dl (6.3-8.2)
[2024-12-03 07:03] LABS: Alkaline Phosphatase 1566 U/L (38-126)
[2024-12-03 07:41] VITALS: BP 152/84
--- NOTE | 2024-12-03 08:05 | W.PN.UPDATE ---
Update Note
Progress Note Update
LFTs noted, continue to improve. Will sign off for now, please go back with any further questions. Will set up LFTs for 2 weeks and office visit in around 3 to 4 weeks.
[2024-12-03] MEDS: B COMPLEX w/VITAMIN C 1 CAPLET PO (08:32)
[2024-12-03] MEDS: TOPROL XL 50 MG PO (08:32)
[2024-12-03] MEDS: PROZAC 40 MG PO (08:32)
[2024-12-03] MEDS: VISBIOME 1 CAP PO (08:32)
[2024-12-03] MEDS: OSCAL CAL 500 500 MG PO ×2 (08:32→20:07)
[2024-12-03] MEDS: HEPARIN 5000 UNITS SC ×2 (08:33→20:07)
--- NOTE | 2024-12-03 10:18 | W.PN.HOSP.TC ---
Today's Communication/Plan
-
Monitor vital signs see plan
Discussed with daughter
Awaiting surgical pathology, patient will follow-up with gynecology outpatient
Monitor hemoglobin
Monitor leukocytosis
Off Eliquis
PT/OT
Pending SNF, manager case management aware
Assessment / Plan
Assessment / Plan
General: Well Developed, Well Nourished, No Apparent Distress, Comfortable and Conversant
HEENT: NormoCephalic, Moist mucous membranes, Atraumatic, PERRLA
Respiratory: Clear and Non Labored Respirations
Cardiac: S1/S2 and Regular Rhythm; No Murmur or Rub
GI: Soft, Non Tender, Non Distended and Normal Bowel Sounds
Musculoskeletal: No Edema
Neuro: Awake, Alert, AO x 3, No Motor Deficits, Nonfocal/grossly intact and Cranial Nerves Intact
Psych: Calm
small volume acute hemorrhage in the left lateral ventricle
unknown if 2/2 trauma
unknown if exacerbated by eliquis
EKG: ATRIAL FIBRILLATION
ST and T WAVE ABNORMALITY, CONSIDER LATERAL ISCHEMIA
CXR: Hypoaerated lungs without consolidation.
Head CT: Findings as above most likely representing very small volume acute hemorrhage in the left lateral ventricle.
Repeat head CT unchanged
Neurosurgery following, restart Eliquis in 1 week if indicated. No acute neurosurgical intervention indicated. however cardiology spoke with family and plan to stop Eliquis
Patient will have outpatient discussion for watchman with cardiology
Leukocytosis, acute on chronic
Continue to monitor, no signs of infection at this time
transaminitis
patient denies any abdominal pain
Elevated bili, LFTs
Abdominal ultrasound with biliary dilation. Abdominal ultrasound also with suspected renal mass however MRI negative for any mass
MRI/MRCP with Lisa lithiasis. CBD is within upper normal limits. No obstruction
GI following
hep panel negative; SHEILA neg
Likely secondary to hypoperfusion
Vaginal bleeding
Gynecology following
Transvaginal ultrasound Pelvic ultrasound with thickened endometrium. Gynecology recommending D&C under general anesthesia. Requested risk stratification by cardiology. Cardiology following, moderate risk per cardiology. I also spoke with
neurosurgery who has no issues with patient getting general anesthesia.
Patient is moderate risk
s/p Hysteroscopy D&C, polypectomy x 2, LEEP procedure with ECC. await pathology of biopsy of cervical lesion. Patient will follow-up with gynecology outpatient
left hip pain
Hip x-ray without any fracture, now pain improving. Does have arthritis
hyperlipidemia
- hold atorvastatin
permanent atrial fibrillation
EKG: ATRIAL FIBRILLATION
ST and T WAVE ABNORMALITY, CONSIDER LATERAL ISCHEMIA
- hold Eliquis
chronic anemia
- appears at baseline
- monitor H/H
HTN
resume lisinopril
cw metoprolol
chronic kidney disease 3b
BUN 18, Creat 1.4
- appears to be baseline
- monitor BMP
GERD
- continue pantoprazole
Chronic diastolic CHF
ECHO (04/11/2023): Normal left ventricular chamber size. Mild concentric left ventricular hypertrophy. Normal left ventricular systolic function. Left ventricular ejection fraction is 55-60%. Diastolic function indeterminate.
Normal right ventricular size and function.
Indexed LA volume is mildly abnormal (35-41 mL/m2).
Mitral annular calcification. Mild mitral regurgitation.
Aortic sclerosis without stenosis.
Mild tricuspid regurgitation. Estimated pulmonary artery pressure of 25-30 mmHg. Assuming a right atrial pressure of 3 mmHg.
Compared to the previous echo 03/21/22, there is no significant change.
- daily weights
anxiety/depression
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
Code status: full code
DVT prophylaxis: SCDs; heparin
PT/OT rec SNF
Anticipated Discharge: Today
Subjective/Interval History
-
Date of Service: December 03, 2024
denies pain
Objective Data
-
Labs:
Laboratory Results
12/03/24
05:42
WBC 18.8 H
Hgb 9.4 L
Hct 28.9 L
Plt Count 397
Sodium 139
Potassium 4.4
Chloride 105
Carbon Dioxide 28
BUN 30 H
Creatinine 1.4 H
Glucose 101 H
Calcium 9.5
Total Bilirubin 2.1 H
AST 353 H
ALT 461 H
Alkaline Phosphatase 1566 H
Vital Signs:
Vital Signs
Temp Pulse Resp BP Pulse Ox
97.5 F 83 20 152/84 96
12/03/24 07:41 12/03/24 08:32 12/03/24 07:41 12/03/24 08:32 12/03/24 07:41
I&O
12/02/24 12/03/24 12/04/24
06:59 06:59 06:59
Intake Total 480 / 480 840 / 840
Balance 480 / 480 840 / 840
--- NOTE | 2024-12-03 10:39 | CM ---
PT OT indicate SNF .
Spoke with patient she requested [facility]. Referral placed .
Will need auth with [facility].
Spoke with admissions confirmed [facility] as primary.
PLAN To Snf after SNF located and auth obtained
[2024-12-03 11:10] VITALS: BP 158/64
[2024-12-03 15:40] VITALS: BP 101/68
[2024-12-03] MEDS: LIDOCAINE 4% PATCH 1 PATCH TOPICAL (20:07)
[2024-12-03 23:46] VITALS: BP 130/90
[2024-12-04 05:42] VITALS: BMI 25.5
[2024-12-04 06:18] LABS: % Basophils 0.4 % (0-2); % Eosinophils 2.5 % (0-6); % Immature Granulocytes 0.6 % (0-0.5); % Lymphocytes 19.5 % (20.5-51.1); % Monocytes 8.7 % (1.7-9.3); % Neutrophils 68.3 % (42.2-75.2); Absolute Basophils 0.1 10^3/uL (0-0.2); Absolute Eosinophils 0.4 10^3/uL (0-0.7); Absolute Immature Granulocytes 0.1 10^3/uL (0-0.05); Absolute Lymphocytes 3.4 10^3/uL (1.2-3.4); Absolute Monocytes 1.5 10^3/uL (0.1-0.6); Absolute Neutrophils 11.8 10^3/uL (1.4-6.5); Hematocrit 30.2 % (37.0-47.0); Hemoglobin 9.9 g/dL (12.0-16.0); Mean Corp Hgb Conc. 32.8 g/dL (33.0-37.0); Mean Corpuscular Hgb 30.7 pg (27.0-31.0); Mean Corpuscular Volume 93.8 fL (81.0-99.0); Mean Platelet Volume 10.1 fL (7.4-10.4); Nucleated Red Blood Cells % 0 %; Platelet Count 409 10^3/uL (130-400); Red Blood Cell Count 3.22 10^6/uL (4.20-5.40); Red Cell Dist. Width 18.6 % (11.5-14.5); White Blood Cell Count 17.3 10^3/uL (4.8-10.8)
[2024-12-04 06:42] LABS: ALT (SGPT) 408 U/L (0-35); AST (SGOT) 284 U/L (14-36); Albumin 3.4 g/dl (3.5-5.0); Blood Urea Nitrogen 26 mg/dl (7-17); Calcium 9.7 mg/dl (8.4-10.2); Carbon Dioxide 26 mmol/L (22-30); Chloride 104 mmol/L (98-107); Estimated Creatinine Clearance 31 ml/min; Glucose 91 mg/dl (70-99); Potassium 4.6 mmol/L (3.5-5.1); Sodium 138 mmol/L (135-145); Total Bilirubin 2.3 mg/dl (0.2-1.3); Total Protein 6.7 g/dl (6.3-8.2); eGFR 41.31
[2024-12-04 06:52] LABS: Alkaline Phosphatase 1622 U/L (38-126)
[2024-12-04 07:20] VITALS: BP 171/93
[2024-12-04] MEDS: PROZAC 40 MG PO (08:01)
[2024-12-04] MEDS: B COMPLEX w/VITAMIN C 1 CAPLET PO (08:01)
[2024-12-04] MEDS: HEPARIN 5000 UNITS SC ×2 (08:02→20:50)
[2024-12-04] MEDS: ZESTRIL 2.5 MG PO (08:02)
[2024-12-04] MEDS: OSCAL CAL 500 500 MG PO (08:02)
[2024-12-04] MEDS: TOPROL XL 50 MG PO (08:02)
[2024-12-04] MEDS: VISBIOME 1 CAP PO (08:02)
[2024-12-04 15:29] VITALS: BP 160/70
--- NOTE | 2024-12-04 17:13 | CM ---
PT OT indicate SNF .
Referral requested [facility]. Referral placed .
Denita said she would call back with bed availability
Will need auth with [facility] managed care.
Spoke with admissions confirmed [facility] as primary.
CM follow up with dgt
PLAN To Snf after SNF located and auth obtained
[2024-12-04] MEDS: OSCAL CAL 500 PO (20:39)
[2024-12-04] MEDS: LIDOCAINE 4% PATCH 1 PATCH TOPICAL (20:44)
[2024-12-04 22:59] LABS: Soluble Liver Antigen Ab 1.3 U (0.0-24.9)
[2024-12-04 23:42] VITALS: BP 136/70
[2024-12-05 05:46] LABS: % Basophils 0.5 % (0-2); % Eosinophils 3.8 % (0-6); % Immature Granulocytes 0.5 % (0-0.5); % Lymphocytes 19.7 % (20.5-51.1); % Monocytes 9.5 % (1.7-9.3); Absolute Basophils 0.1 10^3/uL (0-0.2); Absolute Eosinophils 0.6 10^3/uL (0-0.7); Absolute Immature Granulocytes 0.1 10^3/uL (0-0.05); Absolute Lymphocytes 3.1 10^3/uL (1.2-3.4); Absolute Monocytes 1.5 10^3/uL (0.1-0.6); Absolute Neutrophils 10.5 10^3/uL (1.4-6.5); Hematocrit 29.3 % (37.0-47.0); Hemoglobin 9.5 g/dL (12.0-16.0); Mean Corp Hgb Conc. 32.4 g/dL (33.0-37.0); Mean Corpuscular Hgb 30.4 pg (27.0-31.0); Mean Corpuscular Volume 93.9 fL (81.0-99.0); Nucleated Red Blood Cells % 0 %; Platelet Count 392 10^3/uL (130-400); Red Blood Cell Count 3.12 10^6/uL (4.20-5.40); Red Cell Dist. Width 18.6 % (11.5-14.5); White Blood Cell Count 15.9 10^3/uL (4.8-10.8)
[2024-12-05 06:04] LABS: ALT (SGPT) 381 U/L (0-35); AST (SGOT) 290 U/L (14-36); Albumin 3.4 g/dl (3.5-5.0); Blood Urea Nitrogen 29 mg/dl (7-17); Calcium 9.6 mg/dl (8.4-10.2); Carbon Dioxide 24 mmol/L (22-30); Chloride 105 mmol/L (98-107); Estimated Creatinine Clearance 28 ml/min; Glucose 103 mg/dl (70-99); Potassium 4.3 mmol/L (3.5-5.1); Sodium 139 mmol/L (135-145); Total Bilirubin 1.7 mg/dl (0.2-1.3); Total Protein 6.5 g/dl (6.3-8.2)
[2024-12-05 06:14] LABS: Alkaline Phosphatase 1604 U/L (38-126)
[2024-12-05 06:30] VITALS: BMI 25.3
[2024-12-05 07:44] VITALS: BP 174/76
[2024-12-05] MEDS: ZESTRIL 2.5 MG PO (08:21)
[2024-12-05] MEDS: HEPARIN 5000 UNITS SC ×2 (08:21→22:07)
[2024-12-05] MEDS: VISBIOME 1 CAP PO (08:21)
[2024-12-05] MEDS: B COMPLEX w/VITAMIN C 1 CAPLET PO (08:22)
[2024-12-05] MEDS: PROZAC 40 MG PO (08:22)
[2024-12-05] MEDS: OSCAL CAL 500 500 MG PO (08:22)
[2024-12-05] MEDS: TOPROL XL 50 MG PO (08:22)
--- NOTE | 2024-12-05 10:41 | W.PN.HOSP.TC ---
Today's Communication/Plan
-
.Note for 12/04
Assessment / Plan
Assessment / Plan
Physical exam:
General: Well Developed, Well Nourished, No Apparent Distress, Comfortable and Conversant
HEENT: NormoCephalic, Moist mucous membranes, Atraumatic, PERRLA
Respiratory: Clear and Non Labored Respirations
Cardiac: S1/S2 and Regular Rhythm; No Murmur or Rub
GI: Soft, Non Tender, Non Distended and Normal Bowel Sounds
Musculoskeletal: No Edema
Neuro: Awake, Alert, AO x 3, No Motor Deficits, Nonfocal/grossly intact and Cranial Nerves Intact
Psych: Calm
small volume acute hemorrhage in the left lateral ventricle
unknown if 2/2 trauma
unknown if exacerbated by eliquis
EKG: ATRIAL FIBRILLATION
ST and T WAVE ABNORMALITY, CONSIDER LATERAL ISCHEMIA
CXR: Hypoaerated lungs without consolidation.
Head CT: Findings as above most likely representing very small volume acute hemorrhage in the left lateral ventricle.
Repeat head CT unchanged
Neurosurgery following, restart Eliquis in 1 week if indicated. No acute neurosurgical intervention indicated. however cardiology spoke with family and plan to stop Eliquis
Patient will have outpatient discussion for watchman with cardiology
Leukocytosis, acute on chronic
Continue to monitor, no signs of infection at this time
transaminitis
patient denies any abdominal pain
Elevated bili, LFTs
Abdominal ultrasound with biliary dilation. Abdominal ultrasound also with suspected renal mass however MRI negative for any mass
MRI/MRCP with Lisa lithiasis. CBD is within upper normal limits. No obstruction
GI following
hep panel negative; SHEILA neg
Likely secondary to hypoperfusion
Vaginal bleeding
Gynecology following
Transvaginal ultrasound Pelvic ultrasound with thickened endometrium. Gynecology recommending D&C under general anesthesia. Requested risk stratification by cardiology. Cardiology following, moderate risk per cardiology. I also spoke with
neurosurgery who has no issues with patient getting general anesthesia.
Patient is moderate risk
s/p Hysteroscopy D&C, polypectomy x 2, LEEP procedure with ECC. await pathology of biopsy of cervical lesion. Patient will follow-up with gynecology outpatient
left hip pain
Hip x-ray without any fracture, now pain improving. Does have arthritis
hyperlipidemia
- hold atorvastatin
permanent atrial fibrillation
EKG: ATRIAL FIBRILLATION
ST and T WAVE ABNORMALITY, CONSIDER LATERAL ISCHEMIA
- hold Eliquis
chronic anemia
- appears at baseline
- monitor H/H
HTN
resume lisinopril
cw metoprolol
chronic kidney disease 3b
BUN 18, Creat 1.4
- appears to be baseline
- monitor BMP
GERD
- continue pantoprazole
Chronic diastolic CHF
ECHO (04/11/2023): Normal left ventricular chamber size. Mild concentric left ventricular hypertrophy. Normal left ventricular systolic function. Left ventricular ejection fraction is 55-60%. Diastolic function indeterminate.
Normal right ventricular size and function.
Indexed LA volume is mildly abnormal (35-41 mL/m2).
Mitral annular calcification. Mild mitral regurgitation.
Aortic sclerosis without stenosis.
Mild tricuspid regurgitation. Estimated pulmonary artery pressure of 25-30 mmHg. Assuming a right atrial pressure of 3 mmHg.
Compared to the previous echo 03/21/22, there is no significant change.
- daily weights
anxiety/depression
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
Code status: full code
DVT prophylaxis: SCDs; heparin
PT/OT rec SNF
Total time spent to see the patient, examine the patient, review data and lab results, discuss treatment plan with patient and nursing staff around 55 minutes
Anticipated Discharge: Within 24 hours
Subjective/Interval History
-
Date of Service: December 04, 2024
No chest pain
No abdominal pain
Objective Data
-
Labs:
Laboratory Results
12/05/24
05:13
WBC 15.9 H
Hgb 9.5 L
Hct 29.3 L
Plt Count 392
Sodium 139
Potassium 4.3
Chloride 105
Carbon Dioxide 24
BUN 29 H
Creatinine 1.4 H
Glucose 103 H
Calcium 9.6
Total Bilirubin 1.7 H
AST 290 H
ALT 381 H
Alkaline Phosphatase 1604 H
Vital Signs:
Vital Signs
Temp Pulse Resp BP Pulse Ox
97.4 F 80 16 174/76 95
12/05/24 07:44 12/05/24 08:22 12/05/24 07:44 12/05/24 08:22 12/05/24 07:44
I&O
12/04/24 12/05/24 12/06/24
06:59 06:59 06:59
Intake Total 420 / 420
Balance 420 / 420
--- NOTE | 2024-12-05 11:34 | W.PN.HOSP.TC ---
Today's Communication/Plan
-
dc
Assessment / Plan
Assessment / Plan
Physical exam:
General: Well Developed, Well Nourished, No Apparent Distress, Comfortable and Conversant
HEENT: NormoCephalic, Moist mucous membranes, Atraumatic, PERRLA
Respiratory: Clear and Non Labored Respirations
Cardiac: S1/S2 and Regular Rhythm; No Murmur or Rub
GI: Soft, Non Tender, Non Distended and Normal Bowel Sounds
Musculoskeletal: No Edema
Neuro: Awake, Alert, AO x 3, No Motor Deficits, Nonfocal/grossly intact and Cranial Nerves Intact
Psych: Calm
small volume acute hemorrhage in the left lateral ventricle
unknown if 2/2 trauma
unknown if exacerbated by Eliquis
EKG: ATRIAL FIBRILLATION
ST and T WAVE ABNORMALITY, CONSIDER LATERAL ISCHEMIA
CXR: Hypoaerated lungs without consolidation.
Head CT: Findings as above most likely representing very small volume acute hemorrhage in the left lateral ventricle.
Repeat head CT unchanged
Neurosurgery following, restart Eliquis in 1 week if indicated. No acute neurosurgical intervention indicated. however cardiology spoke with family and plan to stop Eliquis
Patient will have outpatient discussion for watchman with cardiology
Leukocytosis, acute on chronic
Continue to monitor, no signs of infection at this time
transaminitis
LFT coming down
patient denies any abdominal pain
Elevated bili, LFTs
Abdominal ultrasound with biliary dilation. Abdominal ultrasound also with suspected renal mass however MRI negative for any mass
MRI/MRCP with Lisa lithiasis. CBD is within upper normal limits. No obstruction
GI followed
hep panel negative; SHEILA neg
Likely secondary to hypoperfusion
Vaginal bleeding
Gynecology following
Transvaginal ultrasound Pelvic ultrasound with thickened endometrium. Gynecology recommending D&C under general anesthesia. Requested risk stratification by cardiology. Cardiology following, moderate risk per cardiology. I also spoke with
neurosurgery who has no issues with patient getting general anesthesia.
Patient is moderate risk
s/p Hysteroscopy D&C, polypectomy x 2, LEEP procedure with ECC. await pathology of biopsy of cervical lesion. Patient will follow-up with gynecology outpatient
left hip pain
Hip x-ray without any fracture, now pain improving. Does have arthritis
hyperlipidemia
- hold atorvastatin
permanent atrial fibrillation
EKG: ATRIAL FIBRILLATION
ST and T WAVE ABNORMALITY, CONSIDER LATERAL ISCHEMIA
- hold Eliquis
chronic anemia
- appears at baseline
- monitored H/H
HTN
resume lisinopril
cw metoprolol
chronic kidney disease 3b
BUN 18, Creat 1.4
- appears to be baseline
- monitor BMP
GERD
- continue pantoprazole
Chronic diastolic CHF
ECHO (04/11/2023): Normal left ventricular chamber size. Mild concentric left ventricular hypertrophy. Normal left ventricular systolic function. Left ventricular ejection fraction is 55-60%. Diastolic function indeterminate.
Normal right ventricular size and function.
Indexed LA volume is mildly abnormal (35-41 mL/m2).
Mitral annular calcification. Mild mitral regurgitation.
Aortic sclerosis without stenosis.
Mild tricuspid regurgitation. Estimated pulmonary artery pressure of 25-30 mmHg. Assuming a right atrial pressure of 3 mmHg.
Compared to the previous echo 03/21/22, there is no significant change.
- daily weights
anxiety/depression
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
Code status: full code
DVT prophylaxis: SCDs; heparin
PT/OT rec SNF
Total time spent to see the patient, examine the patient, review data and lab results, discuss treatment plan with patient and nursing staff around 55 minutes
Anticipated Discharge: Today
Subjective/Interval History
-
Date of Service: December 05, 2024
No vaginal bleeding
Objective Data
-
Labs:
Laboratory Results
12/05/24
05:13
WBC 15.9 H
Hgb 9.5 L
Hct 29.3 L
Plt Count 392
Sodium 139
Potassium 4.3
Chloride 105
Carbon Dioxide 24
BUN 29 H
Creatinine 1.4 H
Glucose 103 H
Calcium 9.6
Total Bilirubin 1.7 H
AST 290 H
ALT 381 H
Alkaline Phosphatase 1604 H
Vital Signs:
Vital Signs
Temp Pulse Resp BP Pulse Ox
97.4 F 80 16 174/76 95
12/05/24 07:44 12/05/24 08:22 12/05/24 07:44 12/05/24 08:22 12/05/24 07:44
I&O
12/04/24 12/05/24 12/06/24
06:59 06:59 06:59
Intake Total 420 / 420
Balance 420 / 420
[2024-12-05 12:33] VITALS: BP 137/64
--- NOTE | 2024-12-05 13:54 | CM ---
Addendum entered by Lila Reyes RN 12/05/24 15:00:
CM faxed Prior Authorization form to [facility]. CM will await authorization feedback
Addendum entered by Lila Reyes RN 12/05/24 14:45:
Patient has been accepted to [facility]. CM will call for authorization from [facility].
Original Note:
Patient accepted at [facility] pending bed availability, CM called and left VM await response. Patient will need auth. CM updated physician. CM will continue to follow for discharge planning needs.
Plan; pending bed need auth for SNF placement; [facility]
[2024-12-05 15:48] VITALS: BP 140/64
[2024-12-05 16:57] VITALS: O2SAT 96
--- NOTE | 2024-12-05 17:25 | W.PN.UPDATE ---
Update Note
Progress Note Update
Pap Atypical glandular cells undetermined significance
Surgical pathology: no cervical dysplasia, fragments of benign endocervical polyps, benign endocervical tissue, fragments benign endometrial polyps
.
No malignancy or atypia. All benign pathology.
I reviewed results with Evelina in person.
I also called and notified her daughter, Radha.
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 May come for postop check in a few wks as able.
[2024-12-05] MEDS: LIDOCAINE 4% PATCH 1 PATCH TOPICAL (22:07)
[2024-12-05] MEDS: OSCAL CAL 500 PO (22:10)
[2024-12-05 23:00] VITALS: BP 97/64
[2024-12-06 06:00] VITALS: BMI 22.2
[2024-12-06 07:25] VITALS: BP 105/70
--- NOTE | 2024-12-06 08:44 | CM ---
Addendum entered by RANDEE Tubbs 12/06/24 11:04:
IMM done with patient. spoke to [facility] to update. 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 admit confirmed with [facility] liaisonSimi.
report to [phone]
fax [phone]
Addendum entered by Lila Reyes RN 12/06/24 10:11:
[facility] called with authorization for [facility]
Auth for 7 days starting 12/06-12/13
[id number]
Original Note:
callled [facility] insurance at- -[phone] to inquire about pending auth. Office closed but left requesting call back with auth.
--- NOTE | 2024-12-06 09:29 | W.PN.HOSP.TC ---
Addendum entered and electronically signed by Tony Montanez MD 12/06/24 11:22:
Addendum
Discussed with staff, patient has bed available. Will reconcile and finish discharge instructions
Total discharge time spent to see the patient, examine the patient, review data and lab results, discuss discharge plan with patient and nursing staff around 65 minutes
Original Note:
Today's Communication/Plan
-
dc
Assessment / Plan
Assessment / Plan
Physical exam:
General: Well Developed, Well Nourished, No Apparent Distress, Comfortable and Conversant
HEENT: NormoCephalic, Moist mucous membranes, Atraumatic, PERRLA
Respiratory: Clear and Non Labored Respirations
Cardiac: S1/S2 and Regular Rhythm; No Murmur or Rub
GI: Soft, Non Tender, Non Distended and Normal Bowel Sounds
Musculoskeletal: No Edema
Neuro: Awake, Alert, AO x 3, No Motor Deficits, Nonfocal/grossly intact and Cranial Nerves Intact
Psych: Calm
small volume acute hemorrhage in the left lateral ventricle
unknown if 2/2 trauma
unknown if exacerbated by Eliquis
EKG: ATRIAL FIBRILLATION
ST and T WAVE ABNORMALITY, CONSIDER LATERAL ISCHEMIA
CXR: Hypoaerated lungs without consolidation.
Head CT: Findings as above most likely representing very small volume acute hemorrhage in the left lateral ventricle.
Repeat head CT unchanged
Neurosurgery following, restart Eliquis in 1 week if indicated. No acute neurosurgical intervention indicated. however cardiology spoke with family and plan to stop Eliquis
Patient will have outpatient discussion for watchman with cardiology
Leukocytosis, acute on chronic
Continue to monitor, no signs of infection at this time
transaminitis
LFT coming down
patient denies any abdominal pain
Elevated bili, LFTs
Abdominal ultrasound with biliary dilation. Abdominal ultrasound also with suspected renal mass however MRI negative for any mass
MRI/MRCP with Lisa lithiasis. CBD is within upper normal limits. No obstruction
GI followed
hep panel negative; SHEILA neg
Likely secondary to hypoperfusion
Vaginal bleeding
Gynecology following
Transvaginal ultrasound Pelvic ultrasound with thickened endometrium. Gynecology recommending D&C under general anesthesia. Requested risk stratification by cardiology. Cardiology following, moderate risk per cardiology. I also spoke with
neurosurgery who has no issues with patient getting general anesthesia.
Patient is moderate risk
s/p Hysteroscopy D&C, polypectomy x 2, LEEP procedure with ECC. await pathology of biopsy of cervical lesion. Patient will follow-up with gynecology outpatient
left hip pain
Hip x-ray without any fracture, now pain improving. Does have arthritis
hyperlipidemia
- hold atorvastatin
permanent atrial fibrillation
EKG: ATRIAL FIBRILLATION
ST and T WAVE ABNORMALITY, CONSIDER LATERAL ISCHEMIA
- hold Eliquis
chronic anemia
- appears at baseline
- monitored H/H
HTN
resume lisinopril
cw metoprolol
chronic kidney disease 3b
BUN 18, Creat 1.4
- appears to be baseline
- monitor BMP
GERD
- continue pantoprazole
Chronic diastolic CHF
ECHO (04/11/2023): Normal left ventricular chamber size. Mild concentric left ventricular hypertrophy. Normal left ventricular systolic function. Left ventricular ejection fraction is 55-60%. Diastolic function indeterminate.
Normal right ventricular size and function.
Indexed LA volume is mildly abnormal (35-41 mL/m2).
Mitral annular calcification. Mild mitral regurgitation.
Aortic sclerosis without stenosis.
Mild tricuspid regurgitation. Estimated pulmonary artery pressure of 25-30 mmHg. Assuming a right atrial pressure of 3 mmHg.
Compared to the previous echo 03/21/22, there is no significant change.
- daily weights
anxiety/depression
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
Code status: full code
DVT prophylaxis: SCDs; heparin
PT/OT rec SNF
Total time spent to see the patient, examine the patient, review data and lab results, discuss treatment plan with patient and nursing staff around 45 minutes
Anticipated Discharge: Today
Subjective/Interval History
-
Date of Service: December 06, 2024
No events over night
Objective Data
-
Vital Signs:
Vital Signs
Temp Pulse Resp BP Pulse Ox
97.8 F 75 14 105/70 94
12/06/24 07:25 12/06/24 07:25 12/06/24 07:25 12/06/24 07:25 12/06/24 07:25
I&O
12/05/24 12/06/24 12/07/24
06:59 06:59 06:59
Intake Total 720 / 720 240 / 240
Balance 720 / 720 240 / 240
[2024-12-06 09:30] VITALS: BP 116/79
[2024-12-06] MEDS: HEPARIN 5000 UNITS SC (09:48)
[2024-12-06] MEDS: VISBIOME 1 CAP PO (09:49)
[2024-12-06] MEDS: PROZAC 40 MG PO (09:49)
[2024-12-06] MEDS: OSCAL CAL 500 500 MG PO (09:49)
[2024-12-06] MEDS: ZESTRIL 2.5 MG PO (09:49)
[2024-12-06] MEDS: B COMPLEX w/VITAMIN C 1 CAPLET PO (09:49)
[2024-12-06] MEDS: TOPROL XL 50 MG PO (09:50)
--- NOTE | 2024-12-06 11:11 | W.DCSUMMARY ---
Discharge Summary
Discharge Data
Date of Admission: 11/27/24
Date of Discharge: 12/06/24
-
Pending Results: No
Hospital Course
79 years old female was admitted to the hospital with weakness, exertional shortness of breath and history of falls. Patient was found to have small left lateral ventricle hemorrhage. Patient was evaluated by neurosurgeon. Repeat head scan was
unchanged. Neurosurgery recommended to stop Eliquis and physical therapy. Patient was noted also to have vaginal bleeding. [employer] evaluated the patient and ultrasound of the pelvis showed endometrial thickening. [employer] performed
Hysteroscopy D&C, polypectomy x 2, LEEP procedure with ECC. Patient was seen by retail cosmetics sales counter manager for options regarding anticoagulation and preoperative assessment. Patient underwent the gynecology procedure without complication. [employer] Worker
discussed with patient and her daughter regarding stopping anticoagulation due to risk of multiple falls and to continue outpatient discussion regarding further management including Watchman device placement. Patient was noted to have elevated
liver function test. She was evaluated by gastroenterology. MRI of the abdomen showed cholelithiasis with common bile duct was within upper normal limits for age with no obstruction. She did not have abdominal pain or nausea. Patient was noted
that her liver dysfunction was mostly consistent with hepatocellular injury more than congestion/cholestatic etiology. She had negative serology panel for infection and negative SHEILA. Patient tolerated diet well. Patient was evaluated by physical
therapy and recommended group home facility placement. Patient remained hemodynamically stable and was discharged in a stable condition.
Discharge Plan
-
Patient Disposition: Care Home/SNF
Discharge Diagnosis/Procedures: Small amount of acute hemorrhage in the left lateral ventricle, stable vital signs and hemoglobin. Stopped Eliquis.
Postmenopausal bleeding, stopped. Status post hysteroscopy, dilation and curettage, polypectomy x2, Pap smear collection, loop electrosurgical excision procedure, and endocervical curettings by DR Samuels on 12/01. Follow-up with ornament maker hand.
Diet: As tolerated
Blood Work: Liver function tests in 2 weeks prior to GI office appointment (lab slip given to patient)
Referrals:
Brandi Samuels DO [Active] -
([facility]
[address]
[place] [address]
[phone]
Postop visit in office in 4 wks if ambulatory/able to mobilize from wheelchair to exam table. )
Maren Conner CRNP [Family Provider] - in less than 1 week
Lisbet Hoffman PA-C [Specified Professional Personl] - 12/25/24 11:30 am
(The appointment will be at our [place] Office.
[address]
[place] [address]
[phone])
Prescriptions:
New
lidocaine 4 % Adhesive Patch,Medicated
1 patch topical HS Qty: 30 0RF
Continued
atorvastatin 20 MG tablet
20 mg PO DAILY
B-complex with vitamin C 1 CAPLET tablet
1 cap PO DAILY Qty: 30 0RF
fluoxetine 40 mg Capsule
40 mg PO DAILY
acetaminophen [Tylenol] 325 mg Tablet
650 mg PO Q6HPRN PRN (Reason: mild pain)
metoprolol succinate [Toprol XL] 50 mg Tablet Extended Release 24 Hr
50 mg PO DAILY
calcium carbonate [Calcium 600] 600 mg calcium (1,500 mg) Tablet
600 mg PO BID
lisinopril 2.5 mg Tablet
2.5 mg PO DAILY
Visbiome 112.5 billion cell Capsule
1 cap PO DAILY
Discontinued
Eliquis 5 MG tablet
2.5 mg PO BID
Discharge Orders:
Discharge Patient (As Directed); Ordered 12/05/24
Ordered By: Tony Montanez
Discharge Date and Time
Print Language: GERMAN
[2024-12-06 13:22] VITALS: BP 127/60
== END 2024-12-06 13:55 | DRG 988 ==
LOC: 3 WEST ACU 16:49
PROVIDERS: Internal Medicine; Nurse Practitioner Adult Health; Nurse Practitioner Family; Obstetrics & Gynecology; Physician Assistant; ADMITTING PHYSICIAN Student in an Organized Health Care Education/Training Program; ATTENDING PHYSICIAN Internal Medicine; CONSULT PHYSICIAN Internal Medicine Cardiovascular Disease; CONSULT PHYSICIAN Obstetrics & Gynecology; EMERGENCY PHYSICIAN Student in an Organized Health Care Education/Training Program; FAMILY PHYSICIAN Nurse Practitioner Adult Health; OTHER PHYSICIAN Internal Medicine Gastroenterology; OTHER PHYSICIAN Neurological Surgery
PROC: 0UBC8ZX Excision of Cervix, Via Natural or Artificial Opening Endoscopic, Diagnostic (ICD-10-PCS; 2024-12-01)
PROC: 0UDB8ZX Extraction of Endometrium, Via Natural or Artificial Opening Endoscopic, Diagnostic (ICD-10-PCS; 2024-12-01)
PROC: 0UB98ZX Excision of Uterus, Via Natural or Artificial Opening Endoscopic, Diagnostic (ICD-10-PCS; 2024-12-01)
DX: I61.5 Nontraumatic intracerebral hemorrhage, intraventricular (principal); I13.0 Hypertensive heart and chronic kidney disease with heart failure and stage 1 through stage 4 chronic kidney disease, or unspecified chronic kidney disease; I48.21 Permanent atrial fibrillation; I50.32 Chronic diastolic (congestive) heart failure; N95.0 Postmenopausal bleeding; Z66 Do not resuscitate; Z79.01 Long term (current) use of anticoagulants; N18.32 Chronic kidney disease, stage 3b; Z87.891 Personal history of nicotine dependence; K80.20 Calculus of gallbladder without cholecystitis without obstruction; F41.9 Anxiety disorder, unspecified; F32.A Depression, unspecified; R93.89 Abnormal findings on diagnostic imaging of other specified body structures; E78.00 Pure hypercholesterolemia, unspecified; K21.9 Gastro-esophageal reflux disease without esophagitis; N84.0 Polyp of corpus uteri; Z75.1 Person awaiting admission to adequate facility elsewhere; D63.1 Anemia in chronic kidney disease; I71.43 Infrarenal abdominal aortic aneurysm, without rupture; Z79.899 Other long term (current) drug therapy; Z80.0 Family history of malignant neoplasm of digestive organs; Z82.49 Family history of ischemic heart disease and other diseases of the circulatory system; Z11.52 Encounter for screening for COVID-19; Z60.2 Problems related to living alone; K76.89 Other specified diseases of liver
CPT/HCPCS: 88305; 88307; 70450; 71046; 73502; 74183; 76700; 76830; 76856; 76998; 80053; 80143; 82103; 82248; 82728; 82977; 83516; 83540; 83550; 83605; 83690; 83735; 84484; 85025; 85027; 85610; 85730; 86015; 86038; 86381; 86704; 86706; 86708; 86803; 86850; 86900; 86901; 87340; 87502; 87811; 88341; 88342; 93005; 97110; 97163; 97167; 97530; 97535; 99285; A9575; G0123

== ENCOUNTER 2025-03-15 13:48 | Inpatient (IN) | payer OTHER, SELFPAY ==
[2025-03-15] VITALS (27 sets, daily range): BP systolic 87–134; BP diastolic 39–107; BMI 25.9
[2025-03-15 12:08] LABS: Urine Character Bloody (Clear)
[2025-03-15 12:17] LABS: Urine Red Blood Cell >100 /HPF (0-2)
--- NOTE | 2025-03-15 12:18 | ED.GENMED ---
History of Present Illness
General
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
Source: patient and records
Exam Limitations: altered mental status and dementia
Time Seen by Provider: 03/15/25 11:38
Nursing documentation reviewed up to this point in time: agreed with
History of Present Illness
History of Present Illness:
80-year-old female from home currently in a wheelchair lives alone caregivers found her with some blood in her garment, apparently had similar episodes previously told it was perhaps gynecological transferred via EMS, here she has a fever, she is
confused, says she is short of breath, denies abdominal pain, prior records briefly reviewed fairly extensive workup on her prior admission MRI of the abdomen ultrasound of the pelvis gynecology consultation
Past History
Past History
ED Past Medical History: Arrthythmia and CVA
Social History
Tobacco: Non-smoker
Alcohol: None
Drug: None
Living: alone
Employment: Not employed
Review of Systems
Review of Systems
Allergies reviewed?: Yes
Unable to obtain full review of systems at this time due to: dementia
Other source history: other (Prior hospital records)
All Other Systems: Not applicable
Phy Exam
Physical Exam
Physical Exam:
Physical Exam
General: Febrile confused female
Neck: No jaundice
Heart: Tachycardic
Lungs: no acute respiratory distress. clear bilaterally
Abdomen: Soft nontender
Neuro: Answers simple commands globally weak
Skin: no rash
Psychiatric: Flat affect
Extremities: no edema.
Sepsis
Sepsis Screening
Sepsis Assessment: Sepsis
Sepsis Screen
Sepsis Screen: Sepsis
Date: 03/15/25
Time: 15:55
Course
Orders/Labs/Results
Orders:
Orders
03/15/25 Breakfast
Regular
03/15/25 11:40
Electrocardiogram (*1) Urgent
Reason for Study: Other
Other Reason for Exam: Possible Sepsis
Cardiac Monitoring- Treatment ONCE
IV Insert/Care/Rem.- Treatment PRN
Straight cath- Treatment ONCE
CR Chest - 2 Views Urgent
Comment:
Reason For Exam: suspected infection
03/15/25 11:41
EKG- Treatment ONCE
03/15/25 11:59
Urinalysis Reflex To Culture Urgent
Date Specimen was Collected: 03/15/25
Time Specimen was Collected: 11:41
Urine Microscopic Reflex Cult Urgent
03/15/25 12:02
0.9% Sodium Chloride 1000 ml [Nss] 1,000 ml IV BOLUS
Acetaminophen [Tylenol] 650 mg PO NOW STA
03/15/25 12:16
Type And Crossmatch [Type+Screen] Urgent
Complete Blood Count/With Diff Urgent
Comprehensive Metabolic Panel Urgent
Lactic Acid Q4H
Comment: ON ICE, CANCEL 2ND ORDER IF FIRST LACTIC ACID LEVEL <2
Blood Culture Q20M
BRAYDEN Source: Blood/Venous
Specimen Description:
Comment: Urgent from separate sites. If patient screens positive for possible sepsis
03/15/25 12:42
Cefepime HCl [Maxipime] 1,000 mg IV NOW STA
03/15/25 13:01
CT Abd/pel Without Iv Or Oral Urgent
Comment:
Reason For Exam: mohit uti K6
Calcium Gluconate 1,000 mg IV NOW STA
Sodium Bicarbonate 50 meq IV NOW STA
03/15/25 13:08
0.9% Sodium Chloride 1000 ml [Nss] 1,000 ml IV BOLUS
03/15/25 13:13
Sterile Water [Sterile Water For Injection] 20 ml .ROUTE .STK-MED
03/15/25 13:18
Protein/Creat Ratio (Random) Routine
03/15/25 13:29
Admit/Transfer Patient As Directed
Co-Sign Provider:
Level of Care: Inpatient admission
Assign to:: IMU- Intermediate Care
Physician / Group: vinayak
Diagnosis: sepsis
Reason for Hospitalization: sepsis
Expected length of stay greater than two midnights?: Yes
ELOS- Estimated Length of Stay in days: 3
I certify the patient meets the requirements for IP care: Yes
PRN Pain Medication Management As Directed
May give lesser potent ordered pain med per pt: Yes
preference::
Protocol:: Medication orders for pain may be administered in a
manner that supports deferring to patient preference
when the pt is:
- Requesting an ordered lesser potent pain medication.
Least to most potent pain medications are defined
as: acetaminophen < NSAID < tramadol < opioids
(morphine, oxycodone, hydromorphone).
- Requesting a lesser dose of the same medication IF
ORDERED.
- Requesting a less intrusive route of administration
if both routes are prescribed by the provider (PO <
IV).
03/15/25 13:30
Code Status As Directed
Resuscitation Status: Full Code
03/15/25 13:32
Blood Culture Q20M
BRAYDEN Source: Blood/Venous
Specimen Description:
Comment: Urgent from separate sites. If patient screens positive for possible sepsis
03/15/25 13:38
NEPHROLOGY CONSULT Urgent
Consulting Provider: Wilman Espinoza
Was physician already notified: Yes
03/15/25 15:17
Lactic Acid Q4H
Comment: repeat q4 hours x 4 or until less than 2 mmol/L
03/15/25 15:17
Activity As Directed
Activity Level: As Tolerated
Intake/ Output As Directed
Frequency: Per unit guidelines
Pneumatic Compression Sleeves As Directed
Type: Thigh high
Vital Signs As Directed
Frequency: Per unit guidelines
Weight As Directed
Frequency: Daily
DX Deep Vein Thrombosis Video Routine
03/15/25 15:30
0.9% Sodium Chloride 1000 ml [Nss] 1,000 ml IV 100 mls/hr
03/15/25 15:45
Lactic Acid Q4H
Comment: ON ICE, CANCEL 2ND ORDER IF FIRST LACTIC ACID LEVEL <2
03/15/25 16:00
BMP [Basic Metabolic Panel] Routine
03/15/25 16:23
Acetaminophen [Tylenol/Feverall] 650 mg RECTAL Q4HPRN PRN
Acetaminophen [Tylenol] 650 mg PO Q4HPRN PRN
03/15/25 18:00
Atorvastatin [Lipitor] 20 mg PO QPM
03/15/25 19:17
Lactic Acid Q4H
Comment: repeat q4 hours x 4 or until less than 2 mmol/L
03/15/25 23:17
Lactic Acid Q4H
Comment: repeat q4 hours x 4 or until less than 2 mmol/L
03/16/25 02:00
Cefepime HCl [Maxipime] 1,000 mg IV Q12H
03/16/25 03:17
Lactic Acid Q4H
Comment: repeat q4 hours x 4 or until less than 2 mmol/L
03/16/25 06:00
Complete Blood Count/No Diff IN AM
Comprehensive Metabolic Panel IN AM
03/16/25 08:00
Fluoxetine HCl [Prozac] 40 mg PO DAILY
Pantoprazole [Protonix IV] 40 mg IV DAILY
03/17/25 06:00
Complete Blood Count/No Diff IN AM
Comprehensive Metabolic Panel IN AM
03/18/25 06:00
Complete Blood Count/No Diff IN AM
Comprehensive Metabolic Panel IN AM
03/19/25 06:00
Complete Blood Count/No Diff IN AM
Comprehensive Metabolic Panel IN AM
Abnormal Lab Results
03/15/25 03/15/25
11:59 12:16
WBC 26.7 H 10^3/uL
(4.8-10.8)
RBC 4.01 L 10^6/uL
(4.20-5.40)
Hct 36.3 L %
(37.0-47.0)
Abs Immat Gran (auto) 0.2 H 10^3/uL
(0-0.05)
Absolute Neuts (auto) 21.9 H 10^3/uL
(1.4-6.5)
Absolute Monos (auto) 2.6 H 10^3/uL
(0.1-0.6)
Immature Gran % 0.7 H %
(0-0.5)
Neutrophils % 82.0 H %
(42.2-75.2)
Lymphocytes % 7.4 L %
(20.5-51.1)
Monocytes % 9.7 H %
(1.7-9.3)
Potassium 6.0 H mmol/L
(3.5-5.1)
Carbon Dioxide 20 L mmol/L
(22-30)
BUN 37 H mg/dl
(7-17)
Creatinine 3.4 H mg/dL
(0.6-1.0)
Glucose 146 H mg/dl
(70-99)
Lactic Acid 2.8 H mmol/L
(0.7-2.0)
Total Bilirubin 1.8 H mg/dl
(0.2-1.3)
AST 38 H U/L
(14-36)
Alkaline Phosphatase 311 H U/L
(38-126)
Ur Occult Blood Reflex 4+ A
(Negative)
Urine RBC >100 A /HPF
(0-2)
Urine Albumin (Reflex) 4+ A
(Neg - Trace)
03/15/25 12:16
03/15/25 12:16
Vital Signs
Initial and Last Documented VS:
Initial Vital Signs
Temp Pulse Resp BP Pulse Ox
100.8 F H 97 30 125/107 96
03/15/25 11:31 03/15/25 11:31 03/15/25 11:31 03/15/25 11:31 03/15/25 11:31
Last Documented Vital Signs
Temp Pulse Resp BP Pulse Ox
98.9 F 101 24 91/74 93
03/15/25 13:39 03/15/25 14:45 03/15/25 14:45 03/15/25 14:30 03/15/25 14:15
MDM/Problems Addressed
Differential Diagnosis Includes:
Sepsis UTI bacteremia pneumonia viral syndrome
MDM/Problems Addressed:
Hematuria fever
Chronic conditions affecting care: Neurological disorder
Acute Exacerbation and/or Progression of Chronic Illness: Neurological disorder
*Pulse Oximetry
SaO2: 93
Oxygen Mode of Delivery: Room air
Patient hypoxic: no
*EKG
Interpreted by ED Provider?: Yes
Interpretation: abnormal
Comparison EKG: no comparison EKG present
Heart Rate: 118
Rate: tachycardiac
Rhythm: a-fib
Ischemia: non-specific ST changes
*Flame Channeler Interpretation
Rate: tachycardiac
Interpretation: abnormal
Heart Rate: 118
Rhythm: a-fib
*Critical Care Note
Total Time (30-74mins, 75-104mins- exclusive of procedures): 31
Data Reviewed
Review of Other/Old Records Reveals: Labs, Radiology Studies, Testing, Progress Notes and Discharge Summary
Source: records
Update Note
Update Note:
1245 urine noted urine culture pending CBC noted chest x-ray pending prior abdominal imaging noted no notes of nephrolithiasis at that time, prior urine culture noted will start on cefepime likely admission concern for bacteremia
1 PM, electrolytes creatinine noted MOHIT with hyperkalemia will check CT rule out obstruction treat with calcium and bicarb bladder scan
3:[address] report noted nephrology hospitalist notified, urology notified
ED Attending Note
-
Portions of this chart may have been created with voice recognition software.� Occasional wrong word or��sound alike� substitutions may have occurred due to the inherent limitations of voice recognition software.
Discharge Plan
Departure
Patient Disposition: Admit
Date of Disposition: 03/15/25
Time of Disposition: 13:09
Admit to: Telemetry
Presentation/result/management discussed w/ accepting MD/DO: Hospitalist
Patient with high blood pressure during this ER visit?: No
Condition: Fair
Covid-19: Not Applicable
Discharge Problem:
Bacteremia, Permanent atrial fibrillation, Acute kidney injury, Acute hyperkalemia, Sepsis
Interventions
Interventions:
*Risk Screen - Suicide Last Done: 03/15/25 11:31
*General Assessment Last Done: 03/15/25 11:31
*Neglect/Abuse Screening Last Done: 03/15/25 11:31
*ED- Fall Risk Assessment Last Done: 03/15/25 11:31
*Nursing Disposition Last Done: 03/15/25 15:05
ED-Female Genitourinary Assessment Last Done: 03/15/25 12:00
Discharge Date and Time
Discharge Date/Time: 03/15/25 15:20
[2025-03-15] MEDS: NSS 1000 IV ×3 (12:20→16:33)
[2025-03-15] MEDS: TYLENOL 650 MG PO (12:23)
[2025-03-15 12:31] LABS: Hematocrit 36.3 % (37.0-47.0); Hemoglobin 12.1 g/dL (12.0-16.0); Mean Corp Hgb Conc. 33.3 g/dL (33.0-37.0); Mean Corpuscular Volume 90.5 fL (81.0-99.0); Platelet Count 301 10^3/uL (130-400); Red Cell Dist. Width 14.2 % (11.5-14.5)
[2025-03-15 12:46] LABS: Nucleated Red Blood Cells % 0 %
[2025-03-15 13:00] LABS: ALT (SGPT) 19 U/L (0-35); AST (SGOT) 38 U/L (14-36); Albumin 4.1 g/dl (3.5-5.0); Alkaline Phosphatase 311 U/L (38-126); Blood Urea Nitrogen 37 mg/dl (7-17); Calcium 10.2 mg/dl (8.4-10.2); Carbon Dioxide 20 mmol/L (22-30); Chloride 107 mmol/L (98-107); Glucose 146 mg/dl (70-99); Potassium 6.0 mmol/L (3.5-5.1); Sodium 138 mmol/L (135-145); Total Protein 7.9 g/dl (6.3-8.2); eGFR 12.95
--- NOTE | 2025-03-15 13:07 | HPS.HSE ---
Family Physician
-
Family Physician: Maren Conner
Chief Complaint
-
blood in the diaper
History of Present Illness
80-year-old female with past medical history of hypertension, AAA, mesenteric artery stenosis, vaginal bleeding, iron deficiency anemia, A-fib, diastolic heart failure presented to us with vaginal bleeding this morning . 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
in her pull-up. Patient seemed confused this morning. Patient denies any abdominal pain, headache, dizziness or chest pain .patient denies short of breath .patient denies dysuria.
Upon arrival patient is hypertensive, tachycardic and a temp of 100.8. She was also noted to have elevated WBCs, creatinine.
Patient received Tylenol, calcium gluconate, cefepime, normal saline x 2, sodium bicarb in ER. Blood culture sent from ER. Admitted for further management
Medical History
Past Medical History
Past Medical History: Reports Other
Additional Past Medical History:
Hypertension
Aortic aneurysm
Mesenteric artery stenosis
Ischemic stroke
Vaginal bleeding
Iron deficiency anemia
Hepatic failure
A-fib
Hepatitis
Chronic diastolic CHF
Past Surgical History: Reports Other
Additional Past Surgical History:
Coronary artery angioplasty
Social History
Tobacco: Non-smoker
Alcohol: None
Drug: None
Personal: Single
Living: Alone
Family History
Family History: Not pertinent
Allergies / Home Medications
Allergies reflects when Allergies were last updated in [facility].
Home Medications with original date entered in [facility]
Allergy/Medication List:
Allergies
Allergy/AdvReac Type Severity Reaction Status Date / Time
No Known Allergies Allergy Verified 11/27/24 11:14
Home Medications
atorvastatin 20 mg tablet 20 mg PO QPM High cholesterol 12/28/21
fluoxetine 40 mg capsule 40 mg PO DAILY Mental Health/Anxiety 11/27/24
lisinopril 2.5 mg tablet 2.5 mg PO DAILY Blood Pressure 11/27/24
metoprolol succinate 50 mg tablet,extended release 24 hr (Toprol XL) 50 mg PO DAILY Blood Pressure 11/27/24
therapeutic multivitamin 1 tab PO DAILY 03/15/25
Review of Systems
-
Constitutional: Reports No Symptoms
EENT: Reports No Symptoms
Respiratory: Reports No Symptoms
Cardiac: Reports No Symptoms
Abdomen/GI: Reports No Symptoms
: Reports No Symptoms
Musculoskeletal: Reports No Symptoms
Skin: Reports No Symptoms
Neurological: Reports No Symptoms
Endocrine: Reports No Symptoms
Hematologic/Lymphatic: Reports No Symptoms
Psych: Reports No Symptoms
Physical Exam
Vital Signs
Vital Signs
Temp Pulse Resp BP Pulse Ox
100.8 F H 102 29 96/65 93
03/15/25 11:31 03/15/25 12:00 03/15/25 12:00 03/15/25 12:00 03/15/25 12:20
Physical Exam
General: Well Developed, Well Nourished and No Apparent Distress
HEENT: NormoCephalic, Moist mucous membranes and Atraumatic
Respiratory: Clear
Cardiac: S1/S2 and Regular Rhythm; No Murmur or Rub
GI: Soft, Non Tender, Non Distended and Normal Bowel Sounds; No Organomegaly
Rectal: Deferred by Provider
Musculoskeletal: No Clubbing, No Cyanosis and No Edema
Skin: No Rash
Neuro: AO x 3 and Nonfocal/grossly intact
Psych: Calm
Laboratory Results
-
03/15/25 12:16
03/15/25 12:16
Laboratory Results
Lactic Acid 2.8 mmol/L (0.7-2.0) H 03/15/25 12:16
Total Bilirubin 1.8 mg/dl (0.2-1.3) H 03/15/25 12:16
AST 38 U/L (14-36) H 03/15/25 12:16
ALT 19 U/L (0-35) 03/15/25 12:16
Alkaline Phosphatase 311 U/L (38-126) H 03/15/25 12:16
Data Reviewed
-
Lab Data: Labs Reviewed by me
Impression/Plan
-
#acute kidney injury on CKD stage IIIb/hyperkalemia concern for dehydration
- K6.0, creatinine 3.4
- Patient received normal saline x 2 bag, sodium bicarb, calcium gluconate in ER
- Fluids continued
- Nephrology consulted
#sepsis unclear cause
#concern for UTI secondary to hematuria, even though UA negative.
- WBC 26.7, tachycardia, hypotensive, temp 100.8
- Chest x-ray pending
- CT abdomen pelvis pending
- IV cefepime continued
- Blood culture sent from ER
#hematuria
-straight cathed 5cc of bloody urine
-hgb stable at 12.1
-CT abdomen pelvis pending.
#hyperlipidemia
-atorvastatin
#permanent atrial fibrillation
-EKG: ATRIAL FIBRILLATION
-Metoprolol held
#HTN
-Hold lisinopril due to DANITZA and hypotension
#Chronic diastolic CHF
ECHO (04/11/2023): Normal left ventricular chamber size. Mild concentric left ventricular hypertrophy. Normal left ventricular systolic function. Left ventricular ejection fraction is 55-60%. Diastolic function indeterminate.
Normal right ventricular size and function.
Indexed LA volume is mildly abnormal (35-41 mL/m2).
Mitral annular calcification. Mild mitral regurgitation.
Aortic sclerosis without stenosis.
Mild tricuspid regurgitation. Estimated pulmonary artery pressure of 25-30 mmHg. Assuming a right atrial pressure of 3 mmHg.
Compared to the previous echo 03/21/22, there is no significant change.
- daily weights
-strict I&o
#anxiety/depression
- Fluoxetine continued
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
#Code status: full code
#DVT prophylaxis: SCDs
[2025-03-15] MEDS: CALCIUM GLUCONATE 1000 MG IV (13:33)
[2025-03-15] MEDS: SODIUM BICARBONATE 50 MEQ IV (13:33)
[2025-03-15] MEDS: MAXIPIME 1000 MG IV (13:33)
--- NOTE | 2025-03-15 13:40 | W.CON.NEPH ---
Consultation
-
Date/Time Consultation Requested: March 15, 2025 at 1:15 PM
Date/Time Consultation Performed: March 15, 2025 at 1:30 PM
Requesting Provider: Dr. Fong
Performing Provider: Dr. Espinoza
Reason for Consultation: Acute kidney injury and hyperkalemia
Medical History
-
History of Present Illness:
80-year-old female from home currently in a wheelchair lives alone caregivers found her with some blood in her garment, shortness of breath decreased p.o. intakes and decreased and altered mental status per caregiver who is present helps provide
history
Renal consult for acute kidney injury on chronic kidney disease with a baseline creatinine of 1.4. Creatinine was 3.4 on admission with a potassium of 6 as well as hypotension and hematuria.
She was recently discharged for a vaginal bleed and shortness of breath in November and was found to have small left lateral ventricle hemorrhage. Patient was evaluated by neurosurgeon. Repeat head scan was unchanged. Neurosurgery recommended to
stop Eliquis and physical therapy. Patient was noted also to have vaginal bleeding. Logging Superintendent evaluated the patient and ultrasound of the pelvis showed endometrial thickening. Logging Superintendent performed Hysteroscopy D&C, polypectomy x 2, LEEP
procedure with ECC. Patient was seen by portfolio management marketing for options regarding anticoagulation and preoperative assessment. Patient underwent the gynecology procedure without complication. Transonic Engineer discussed with patient and her daughter
regarding stopping anticoagulation due to risk of multiple falls and to continue outpatient discussion regarding further management including Watchman device placement. Patient was noted to have elevated liver function test. She was evaluated by
gastroenterology. MRI of the abdomen showed cholelithiasis with common bile duct was within upper normal limits for age with no obstruction
Past Medical History
past medical history significant for hyperlipidemia, atrial fibrillation, chronic anemia, chronic kidney disease, and anxiety/depression
Social History
Tobacco: Non-Smoker
Alcohol: None
Family History
Family History: Not Pertinent
Allergies / Home Medications
Allergy/AdvReac Type Severity Reaction Status Date / Time
No Known Allergies Allergy Verified 11/27/24 11:14
�Medication �Instructions �Recorded �Confirmed �Type
atorvastatin 20 mg tablet 20 mg PO QPM High cholesterol 12/28/21 03/15/25 History
fluoxetine 40 mg capsule 40 mg PO DAILY Mental 11/27/24 03/15/25 History
Health/Anxiety
lisinopril 2.5 mg tablet 2.5 mg PO DAILY Blood Pressure 11/27/24 03/15/25 History
metoprolol succinate 50 mg 50 mg PO DAILY Blood Pressure 11/27/24 03/15/25 History
tablet,extended release 24 hr
(Toprol XL)
therapeutic multivitamin 1 tab PO DAILY 03/15/25 03/15/25 History
Review of Systems
-
Decreased p.o. intake mild shortness of breath
All other systems: Negative unless noted
Physical Exam
Vital Signs
Vital Signs
Temp Pulse Resp BP Pulse Ox
98.9 F 100 22 87/67 93
03/15/25 13:39 03/15/25 13:15 03/15/25 13:15 03/15/25 13:15 03/15/25 13:06
Lab Results
WBC 26.7 10^3/uL (4.8-10.8) H 03/15/25 12:16
RBC 4.01 10^6/uL (4.20-5.40) L 03/15/25 12:16
Hgb 12.1 g/dL (12.0-16.0) 03/15/25 12:16
Hct 36.3 % (37.0-47.0) L 03/15/25 12:16
Plt Count 301 10^3/uL (130-400) 03/15/25 12:16
Sodium 138 mmol/L (135-145) 03/15/25 12:16
Potassium 6.0 mmol/L (3.5-5.1) H 03/15/25 12:16
Chloride 107 mmol/L (98-107) 03/15/25 12:16
Carbon Dioxide 20 mmol/L (22-30) L 03/15/25 12:16
BUN 37 mg/dl (7-17) H 03/15/25 12:16
Creatinine 3.4 mg/dL (0.6-1.0) H 03/15/25 12:16
eGFR 12.95 03/15/25 12:16
Glucose 146 mg/dl (70-99) H 03/15/25 12:16
Calcium 10.2 mg/dl (8.4-10.2) 03/15/25 12:16
Albumin 4.1 g/dl (3.5-5.0) 03/15/25 12:16
Physical Exam
General no acute distress
HEENT no cephalic atraumatic extraocular muscle intact no scleral icterus no JVD neck supple
lungs clear to auscultation bilateral
heart regular S1-S2 positive
abdomen soft nontender positive bowel sounds
extremities no edema pulses present bilateral
Neurologically nonfocal alert and oriented x 3
Skin no lesions no abrasions no petechiae
Psych normal affect no bizarre behavior
Data Reviewed
-
Radiology: Image Personally Visualized and interpreted
Assessment/Plan
-
past medical history significant for hyperlipidemia, atrial fibrillation, chronic anemia, chronic kidney disease, and anxiety/depression
80-year-old female from home currently in a wheelchair lives alone caregivers found her with some blood in her garment, shortness of breath decreased p.o. intakes and decreased and altered mental status per caregiver who is present helps provide
history
Renal consult for acute kidney injury on chronic kidney disease with a baseline creatinine of 1.4. Creatinine was 3.4 on admission with a potassium of 6 as well as hypotension and hematuria.
Impression.
Acute on chronic kidney disease stage IIIb.
Hyperkalemia secondary to hypotension prerenal
Leukocytosis and hematuria.
History of atrial fibrillation not on anticoagulation.
Chronic anemia.
History of vaginal bleed status post polyps.
History of falls.
Plan.
Acuity secondary to hemodynamics and hypotension possible UTI with hematuria.
Antibiotics.
No indication for Lokelma as volume resuscitation will improve potassium as she makes urine
Volume resuscitation.
Hold lisinopril.
Panculture.
Check imaging pending CAT scan
Discussed with ER physician

32 min cctime
--- NOTE | 2025-03-15 14:01 | W.PN.UPDATE ---
Update Note
Progress Note Update
This is an addendum to H&P written by Joy Glover on 03/15/2025. Patient seen and examined independently with MEDICAL TRANSLATOR.
80-year-old female past medical history of permanent atrial fibrillation no longer on anticoagulation, chronic HFpEF, ventricular hemorrhage, chronic anemia, hypertension, CKD 3B, GERD, anxiety/depression, prior celiac/SMA stenosis status post SMA
angioplasty and stent, hyperlipidemia presenting with blood in her underwear. Has fever, confusion and shortness of breath this morning which resolved.
She was recently admitted here in November for left lateral ventricular hemorrhage. She was seen by neurosurgery. She also had vaginal bleeding. She did not by gynecology and ultrasound of the pelvis showed endometrial thickening. She underwent
hysteroscopy D&C and polypectomy x 2, LEEP procedure. She was seen by GI for transaminitis thought to be hepatocellular. She had MRI of the abdomen showed cholelithiasis .
She arrives with blood pressure 125/107, later 96/65. Temperature 100.8. Tachycardic. Straight catheterization showed 5 cc of blood in the urine. Urinalysis shows greater than 100 RBCs although negative for nitrates and leukocyte Estrace.
Labs show leukocytosis. Creatinine of 3.4. Potassium of 6. Lactic acid 2.8.
Chest x-ray appears to be normal, report pending.
Patient with concern for sepsis secondary to likely UTI although urinalysis not conclusive due to negative leukocyte esterase/nitrates. IV fluids. Urine culture, blood cultures. Hematuria likely from UTI versus obstructive source. Farah catheter
to be placed. CT abdomen pelvis pending to evaluate for obstructive process versus alternative sources of infection.. Cefepime given prior Klebsiella resistant to ceftriaxone.
Patient with severe DANITZA, hyperkalemia, and decreased urine output possibly from hypovolemia or obstructive source. Patient was given bicarb push, calcium gluconate. Recheck BMP. Farah catheter to be placed. Nephrology following.
[2025-03-15 16:21] LABS: Blood Urea Nitrogen 36 mg/dl (7-17); Calcium 9.7 mg/dl (8.4-10.2); Carbon Dioxide 19 mmol/L (22-30); Chloride 111 mmol/L (98-107); Estimated Creatinine Clearance 12 ml/min; Glucose 117 mg/dl (70-99); Potassium 5.2 mmol/L (3.5-5.1); Sodium 140 mmol/L (135-145); eGFR 13.42
[2025-03-15] MEDS: LIPITOR PO (16:37)
--- NOTE | 2025-03-15 17:17 | W.SUR.PREOP ---
Pre-Operative Surgical Note
-
I have examined this patient prior to the performance of the scheduled procedure.
The patient's condition is unchanged from the time of the current History and
Physical and the patient is able to undergo the scheduled procedure.
Diagnosis:
Urosepsis
Obstructive uropathy - multiple distal left ureteral stones
DANITZA
CT imaging reviewed - c/w obstruction of left kidney from multiple distal left ureteral stones.
Tachycardic and hypotensive in IVU, non-toxic
Plan:
- To OR emergently for cysto + left stent placement
- Continue broad-spectrum IV antibiotics
- Surgical consent signed on chart (obtained via videoconference from daughter AMELIA Sung)
D/w patient and daughter.
--- NOTE | 2025-03-15 18:02 | PTCARENOTE ---
pt admitted to floor. max inserted per order. iv nss at 100 started. pt seen by dr Harrison and is now currently in OR for ureteral stents.
--- NOTE | 2025-03-15 18:04 | W.IMMPOSTOP ---
Surgical Immed Post Op Note
-
Primary Surgeon: Hunter
Pre-op Diagnosis: Urosepsis, obstructing distal left ureteral stones, DANITZA
Post-op Diagnosis: Same
Procedure Performed: cysto + left stent placement
Anesthesia Type: LMA
Specimen / Cultures: None/None
Estimated Blood Loss: Negligible
Drains: 4.7Fr x 22 cm JJ left ureteral stent, 16Fr Farah catheter
Complications: None
Operative Findings: brisk efflux of frankly purulent debris after wire compression of left ureter c/w pyonephrosis, final KUB and cystoscopy confirming excellent stent position
Daughter (Ana Lilia) updated postop via telephone.
--- NOTE | 2025-03-15 22:29 | W.PN.UPDATE ---
Update Note
Progress Note Update
RN reached out @ 2114- w/ concerns for pts mentation following arrival from PACU earlier this shift. PT was noted to AAOx2 prior to cystoscopy and stent placement but flat. On arrival to the floor pt was able to follow commands but has remained
aphasic. NIH obtained by the RN was 23 d/t the pts lack of responsiveness. On assessment- pt opened eyes to verbal stimuli- eyes tracked well and she has equal and reactive pupil response. 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 She was able to hold
b/l arms without drift for me but did have minor drift for b/l legs. When asked for any further assessments she did not response/ or perform what was asked of her. Dr. Nunes made aware.
Sent for stat Head CT w/o contrast.
Impression read: No acute intracranial abnormality.
Cont. NIH/Neuro checks- no need to consult neuro at this time- can reevaluate in the morning if she doesn't begin to improve.
--- NOTE | 2025-03-15 22:45 | PTCARENOTE ---
patient came up from pacu. Patient sleeping when arrived. while assessing patient, patient opened eyes to verbal stimuli but was just staring and not responding to questions. Patient will not speak to this RN. Patient nods head at some questions.
Patient will follow some simple commands like squeezing hands and keeping arms in arm but will not smile, raise eyebrows or any other command. Patient continues to stare if asks orientation questions. TT CHARLOTTE Macias and she saw patient at
bedside and ordered head CT, neuro checks and NIH. NIH score 23 for this RN. Will continue to assess and monitor patient. Patient currently sleeping and vital signs stable.
[2025-03-16] VITALS (13 sets, daily range): BP systolic 84–162; BP diastolic 46–123; BMI 24.7; BMI 26.4
[2025-03-16] MEDS: NSS 1000 IV ×2 (02:06→15:11)
[2025-03-16] MEDS: MAXIPIME 1000 MG IV (02:06)
[2025-03-16] MEDS: STERILE WATER FOR INJECTION 10 ML IV (02:06)
[2025-03-16 05:28] LABS: Hematocrit 32.0 % (37.0-47.0); Hemoglobin 10.4 g/dL (12.0-16.0); Mean Corp Hgb Conc. 32.5 g/dL (33.0-37.0); Mean Corpuscular Volume 93.0 fL (81.0-99.0); Platelet Count 256 10^3/uL (130-400); Red Cell Dist. Width 14.6 % (11.5-14.5)
[2025-03-16 05:49] LABS: ALT (SGPT) 18 U/L (0-35); AST (SGOT) 33 U/L (14-36); Albumin 3.2 g/dl (3.5-5.0); Alkaline Phosphatase 219 U/L (38-126); Blood Urea Nitrogen 41 mg/dl (7-17); Calcium 9.0 mg/dl (8.4-10.2); Carbon Dioxide 19 mmol/L (22-30); Chloride 115 mmol/L (98-107); Estimated Creatinine Clearance 11 ml/min; Glucose 143 mg/dl (70-99); Potassium 5.2 mmol/L (3.5-5.1); Sodium 141 mmol/L (135-145); Total Protein 6.2 g/dl (6.3-8.2); eGFR 12.95
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
[2025-03-16] MEDS: PROZAC 40 MG PO (12:00)
[2025-03-16] MEDS: PROTONIX IV 40 MG IV (12:00)
[2025-03-16] MEDS: NSS (PRESERVATIVE FREE) 10 ML IV (12:01)
--- NOTE | 2025-03-16 12:25 | W.PN.URO.CBU ---
Today's Communication / Plan
-
Maintain Farah catheter until WBC/Cr normalize/jessica, respectively
Continue IV abx
F/U cultures (BCx => Proteus)
Will need staged ULS to address ureteral stones in future pending clinical course
D/w daughter (Ana Lilia)
Assessment / Plan
-
Urosepsis
Obstructing distal left ureteral stones with hydronephrosis
ARF
03/15: s/p cystoscopy + left ureteral stent placement (emergent)
Significant leukocytosis (albeit slightly improved)
Cr remains elevated
Oliguric
Diagnosis
-
Date of Service: March 16, 2025
-
Patient Diagnosis:
Urosepsis
Obstructing distal left ureteral stones with hydronephrosis
ARF
Post Op Day:
03/15: s/p cystoscopy + left ureteral stent placement (emergent)
Subjective
-
Generalized weakness.
Still disoriented.
Oliguric.
Objective
-
Vital Signs
Temp Pulse Resp BP Pulse Ox
97.2 F 90 12 109/52 97
03/16/25 07:45 03/16/25 04:30 03/16/25 04:30 03/16/25 04:00 03/16/25 04:30
Intake and Output
03/15/25 03/16/25 03/17/25
06:59 06:59 06:59
Output Total 200 / 200
Balance -200 / -200
Output:
Urine, Farah 200 / 200
Laboratory Results
03/16/25 05:11
03/16/25 05:11
Physical Exam
-
General - chronically ill-appearing, no acute distress
Abdomen - soft, non-distended
- 16Fr Farah catheter w/ yellow UOP
Skin - warm & dry with no rash
Extremities - no clubbing, no cyanosis, no edema
Care Review
Data Reviewed
Discussed with: Hospitalist, Nursing and Family
CT Scan: Report Pers Reviewed and Image Pers Reviewed
Total Time Spent with Patient (in minutes): 40
--- NOTE | 2025-03-16 13:59 | W.PN.HOSP.TC ---
Today's Communication/Plan
-
Continue with ceftriaxone 2 g
ID evaluation
Continue with IV fluids
Restart diet
Monitor blood pressure
Assessment / Plan
Assessment / Plan
#acute kidney injury on CKD stage IIIb
#hyperkalemia concern for dehydration
- Potassium mildly improved. Creatinine remains elevated. Monitor urinary output.
- Patient received normal saline x 2 bag, sodium bicarb, calcium gluconate in ER
- Fluids continued
- Nephrology consulted
#sepsis secondary to Proteus bacteremia likely secondary to obstructive renal stone
WBC 26.7, tachycardia, hypotensive, temp 100.8-poa
Started patient on ceftriaxone 2 g
Continue with IV fluids for now
Repeat surveillance cultures
Await for susceptibility results
ID evaluation
# Obstructive renal stone status post cystoscopy and left ureteral stent placement
# Hematuria on admission
Operative finding of brisk efflux of frankly purulent debris after wire compression of left ureter c/w pyonephrosis, final KUB and cystoscopy confirming excellent stent position
Urology following
#hyperlipidemia
-atorvastatin
#permanent atrial fibrillation
-EKG: ATRIAL FIBRILLATION
-Metoprolol held
#HTN
-Hold lisinopril due to DANITZA and hypotension
#Chronic diastolic CHF
- daily weights
-strict I&o
#anxiety/depression
- Fluoxetine continued
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
#Code status: full code
#DVT prophylaxis: SCDs for now. If no further episode of hematuria then can start DVT prophylaxis
Anticipated Discharge: > 48 hours
Subjective/Interval History
-
Date of Service: March 16, 2025
Overnight events noted patient with weakness and suspected encephalopathy post op
Currently patient states feeling tired
States her back pain
Remains with Farah catheter
Stated runs low blood pressure at baseline
Objective Data
-
Labs:
Laboratory Results
03/16/25
05:11
WBC 24.2 H
Hgb 10.4 L
Hct 32.0 L
Plt Count 256
Sodium 141
Potassium 5.2 H
Chloride 115 H
Carbon Dioxide 19 L
BUN 41 H
Creatinine 3.4 H
Glucose 143 H
Calcium 9.0
Total Bilirubin 1.1
AST 33
ALT 18
Alkaline Phosphatase 219 H
Vital Signs:
Vital Signs
Temp Pulse Resp BP Pulse Ox
97.2 F 90 12 109/52 95
03/16/25 07:45 03/16/25 04:30 03/16/25 04:30 03/16/25 04:00 03/16/25 13:13
I&O
03/15/25 03/16/25 03/17/25
06:59 06:59 06:59
Output Total 200 / 200
Balance -200 / -200
Physical Exam
-
General: Well Developed and No Apparent Distress
HEENT: Normocephalic, Atraumatic and Moist Mucous Membranes
Respiratory: Clear to Auscultation
Cardiac: Regular Rhythm and S1/S2; Negative Murmur, Rub or Gallop
GI: Soft, Nontender, Nondistended and Normal Bowel Sounds; Negative Organomegaly
Rectal: Deferred by Provider
Genito-urinary: Farah
Musculoskeletal: No Clubbing, No Cyanosis and No Edema
Skin: Warm; Negative Rash
Neuro: Awake, No Motor Deficits and Nonfocal/Grossly Intact
Psych: Calm
Data Reviewed
-
Total Time Spent with Patient (in minutes): 56
[2025-03-16] MEDS: STERILE WATER FOR INJECTION 20 ML IV (15:00)
[2025-03-16] MEDS: ROCEPHIN 2000 MG IV (15:00)
[2025-03-16] MEDS: TYLENOL 650 MG PO ×2 (15:12→19:16)
[2025-03-16] MEDS: STERILE WATER FOR INJECTION IV (15:17)
--- NOTE | 2025-03-16 15:35 | CM ---
Patient with Dx DANITZA, hyperkalemia, sepsis, Obstructive renal stone s/p cystoscopy/left ureteral stent placement, suspected encephalopathy post op. Room air. Receiving IVF, IV Abx. Farah in place. Per nurse; talking today and oriented. PT Leandra
pending.
Spoke with patient's daughter AMELIA Garcia;
the patient resides alone in a 2 story home with 7 steps to enter and first floor bedroom/bath.
She sleeps in a hospital bed, & is assisted in ADLs by her private caregivers 8 hours/day 7 days a week.
The patient is ambulatory using her RW, and utilizes her w/c when out.
She had a fall in Nov of this year.
DME - hospital bed. RW, SPC, w/c, shower chair
Prior [facility]
SNF - [facility]
PCP - Maren Conner
Pharmacy - [facility]
Plan follow up after seen by PT.
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
[2025-03-16] MEDS: LIPITOR 20 MG PO (17:34)
[2025-03-16] MEDS: TYLENOL 325 MG PO (21:16)
[2025-03-16] MEDS: BenGay-Like 1 APPLIC TOPICAL (21:17)
[2025-03-16] MEDS: MELATONIN 5 MG PO (22:08)
--- NOTE | 2025-03-16 22:26 | PTCARENOTE ---
patient complaining of 10/10 ankle pain. gave prn tylenol, patient still rating pain 10/10. Notified [employer], order extra dose of tylenol and bengay cream. Patient still complaining of 10/10 pain. When asked how patient handles pain at home she said '
i have care givers so Im not putting pressure on my feet'. Patient has not been out of bed for this RN and both feet are elevated. Applied ice pack on patient's ankles as well. This RN also asked patient why she wasn't speaking on previous shift and
patient stated she just didn't want to talk. [employer] also ordered melatonin to help patient sleep. Patient has call gonzalez in reach.
[2025-03-17] VITALS (17 sets, daily range): BP systolic 100–190; BP diastolic 69–170; PULSE 126; O2SAT 95; BMI 25.8
[2025-03-17] MEDS: NSS 1000 IV ×2 (01:09→07:37)
[2025-03-17 04:39] LABS: Hematocrit 28.3 % (37.0-47.0); Hemoglobin 9.2 g/dL (12.0-16.0); Mean Corp Hgb Conc. 32.5 g/dL (33.0-37.0); Mean Corpuscular Volume 91.9 fL (81.0-99.0); Platelet Count 252 10^3/uL (130-400); Red Cell Dist. Width 14.7 % (11.5-14.5)
[2025-03-17 05:19] LABS: ALT (SGPT) 27 U/L (0-35); AST (SGOT) 49 U/L (14-36); Albumin 2.7 g/dl (3.5-5.0); Alkaline Phosphatase 210 U/L (38-126); Blood Urea Nitrogen 50 mg/dl (7-17); Calcium 8.0 mg/dl (8.4-10.2); Carbon Dioxide 16 mmol/L (22-30); Chloride 115 mmol/L (98-107); Estimated Creatinine Clearance 12 ml/min; Glucose 99 mg/dl (70-99); Potassium 4.6 mmol/L (3.5-5.1); Sodium 141 mmol/L (135-145); Total Protein 5.7 g/dl (6.3-8.2); eGFR 14.47
[2025-03-17] MEDS: PROTONIX IV 40 MG IV (07:35)
[2025-03-17] MEDS: NSS (PRESERVATIVE FREE) 10 ML IV (07:36)
[2025-03-17] MEDS: PROZAC 40 MG PO (07:36)
[2025-03-17] MEDS: BenGay-Like 1 APPLIC TOPICAL ×3 (07:36→21:03)
--- NOTE | 2025-03-17 08:11 | PTCARENOTE ---
Patient received from senior software architect RN. Resting in bed without any complaints. Patient given morning meds and assisted to reposition in bed. Patient refused breakfast this am. Morning meds administered. Vital sign within normal limits.
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
[2025-03-17] MEDS: TOPROL XL 50 MG PO (09:46)
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
[2025-03-17] MEDS: SODIUM BICARBONATE 1150 MEQ IV (11:30)
--- NOTE | 2025-03-17 12:38 | W.PN.HOSP.TC ---
Today's Communication/Plan
-
Restart blood pressure meds
Monitor heart rate
Continue with IV antibiotic
Follow-up on surveillance cultures
Assessment / Plan
Assessment / Plan
#acute kidney injury on CKD stage IIIb
#hyperkalemia concern for dehydration
Potassium mildly improved. Creatinine remains elevated. Monitor urinary output.
Patient received normal saline x 2 bag, sodium bicarb, calcium gluconate in ER
Potassium stabilized. Patient started on bicarbonate IV fluids per nephrology. Creatinine slowly improving.
Nephrology consulted
#sepsis secondary to Proteus bacteremia likely secondary to obstructive renal stone
WBC 26.7, tachycardia, hypotensive, temp 100.8-poa
Started patient on ceftriaxone 2 g
Continue with IV fluids for now
Repeat surveillance cultures and lab
Await for susceptibility results
Leukocytosis improving
ID following
# Obstructive renal stone status post cystoscopy and left ureteral stent placement
# Hematuria on admission
Operative finding of brisk efflux of frankly purulent debris after wire compression of left ureter c/w pyonephrosis, final KUB and cystoscopy confirming excellent stent position
Urology following
#hyperlipidemia
atorvastatin
#permanent atrial fibrillation
-EKG: ATRIAL FIBRILLATION. Afib on tele noted
-Metoprolol restarted
# History of intraparenchymal brain hemorrhage
# History of vaginal bleeding status post hysteroscopy, D&C, polypectomy x 2 and LEEP procedure
-History of falls
- Due to patient risk of falls, brain hemorrhage, vaginal bleeding patient was taken off anticoagulation.
#HTN primary
- Restart metoprolol. Labetalol as needed.
#Chronic diastolic CHF
- daily weights
-strict I&o
#anxiety/depression
- Fluoxetine continued
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
#Code status: full code
#DVT prophylaxis: SCDs for now.
Anticipated Discharge: > 48 hours
Subjective/Interval History
-
Date of Service: March 17, 2025
Awake. Playing games on iPad
Objective Data
-
Labs:
Laboratory Results
03/17/25
04:21
WBC 18.4 H
Hgb 9.2 L
Hct 28.3 L
Plt Count 252
Sodium 141
Potassium 4.6
Chloride 115 H
Carbon Dioxide 16 L
BUN 50 H
Creatinine 3.1 H
Glucose 99
Calcium 8.0 L
Total Bilirubin 0.5
AST 49 H
ALT 27
Alkaline Phosphatase 210 H
Vital Signs:
Vital Signs
Temp Pulse Resp BP Pulse Ox
97.6 F 111 25 189/97 95
03/17/25 08:40 03/17/25 09:46 03/17/25 08:00 03/17/25 09:46 03/17/25 08:00
I&O
03/16/25 03/17/25 03/18/25
06:59 06:59 06:59
Intake Total 1720 / 1720
Output Total 200 / 200 450 / 450
Balance -200 / -200 1270 / 1270
Data Reviewed
-
Total Time Spent with Patient (in minutes): 55
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
[2025-03-17] MEDS: ROCEPHIN 2000 MG IV (13:34)
[2025-03-17] MEDS: STERILE WATER FOR INJECTION 20 ML IV (13:34)
[2025-03-17 13:50] LABS: Urine Character Clear (Clear)
[2025-03-17] MEDS: TRANDATE 10 MG IV (14:36)
[2025-03-17 14:37] LABS: Urine Urothelial Cell 0-2 /LPF (FEW)
[2025-03-17 14:41] LABS: Urine Red Blood Cell 30-40 /HPF (0-2); Urine White Cell >100 /HPF (0-5)
[2025-03-17] MEDS: LIPITOR 20 MG PO (18:11)
[2025-03-17] MEDS: LOPRESSOR 2.5 MG IV (19:49)
[2025-03-17] MEDS: MIRALAX 17 GRAMS PO (19:49)
--- NOTE | 2025-03-17 23:20 | PTCARENOTE ---
report called to 4W RN, pt transferred to Rm [id number].
--- NOTE | 2025-03-17 23:33 | PTCARENOTE ---
patient arrived from IMU via patient bed. BP soft, with HR 120s-140s, afib on the monitor. AAO x 3 with flat affect. Farah in place draining clear yellow urine. Q 2 hour turns. Bed in lowest position. Patient oriented to room. Call gonzalez and personal
belongings within reach.
--- NOTE | 2025-03-18 01:25 | PTCARENOTE ---
patient heart rate ranging from 120s-140s, on telemetry. Provider notified. x 1 dose lopressor ordered yet, this RN unable to administer due to BP of 98/72. patient comfortably laying in bed, denies chest pain and/or shortness of breath.
[2025-03-18] MEDS: SODIUM BICARBONATE 1150 MEQ IV (01:45)
[2025-03-18] MEDS: TYLENOL 650 MG PO (01:50)
[2025-03-18 02:58] VITALS: BP 105/63
[2025-03-18 07:13] VITALS: BP 124/69
[2025-03-18] MEDS: BenGay-Like 1 APPLIC TOPICAL ×3 (08:10→20:33)
[2025-03-18] MEDS: MIRALAX 17 GRAMS PO (08:11)
[2025-03-18] MEDS: NSS (PRESERVATIVE FREE) 10 ML IV (08:11)
[2025-03-18] MEDS: PROZAC 40 MG PO (08:11)
[2025-03-18] MEDS: PROTONIX IV 40 MG IV (08:11)
[2025-03-18] MEDS: TOPROL XL 50 MG PO (08:12)
[2025-03-18 08:41] LABS: Hematocrit 28.4 % (37.0-47.0); Hemoglobin 9.6 g/dL (12.0-16.0); Mean Corp Hgb Conc. 33.8 g/dL (33.0-37.0); Mean Corpuscular Volume 90.7 fL (81.0-99.0); Platelet Count 266 10^3/uL (130-400); Red Cell Dist. Width 14.6 % (11.5-14.5)
[2025-03-18 09:01] LABS: ALT (SGPT) 33 U/L (0-35); AST (SGOT) 45 U/L (14-36); Albumin 2.9 g/dl (3.5-5.0); Alkaline Phosphatase 276 U/L (38-126); Blood Urea Nitrogen 42 mg/dl (7-17); Calcium 8.5 mg/dl (8.4-10.2); Carbon Dioxide 24 mmol/L (22-30); Chloride 110 mmol/L (98-107); Estimated Creatinine Clearance 16 ml/min; Glucose 93 mg/dl (70-99); Potassium 4.4 mmol/L (3.5-5.1); Sodium 138 mmol/L (135-145); Total Protein 5.8 g/dl (6.3-8.2); eGFR 19.67
[2025-03-18] MEDS: SODIUM BICARBONATE IV (09:52)
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
[2025-03-18] MEDS: CIPRO 500 MG PO (10:18)
[2025-03-18 11:22] VITALS: BP 82/54
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
[2025-03-18] MEDS: NSS 1000 IV ×2 (12:18→20:34)
--- NOTE | 2025-03-18 13:00 | W.PN.HOSP.TC ---
Addendum entered and electronically signed by Pedro Moya MD 03/19/25 11:55:
Farah catheter was removed 03/18. Patient voiding without difficulty.
Original Note:
Today's Communication/Plan
-
Continue with normal saline
Trend creatinine
Start midodrine
Hold lisinopril
Assessment / Plan
Assessment / Plan
#acute kidney injury on CKD stage IIIb
#hyperkalemia concern for dehydration
Potassium mildly improved. Creatinine remains elevated. Monitor urinary output.
Patient received normal saline x 2 bag, sodium bicarb, calcium gluconate in ER
Potassium stabilized. Status post bicarbonate infusion. Creatinine improved. Continue with normal saline
Nephrology consulted
#sepsis secondary to Proteus bacteremia likely secondary to obstructive renal stone
WBC 26.7, tachycardia, hypotensive, temp 100.8-poa
Started patient on ceftriaxone 2 g and now transition to Cipro 5 mg daily.
Continue with IV fluids for now
Repeat surveillance cultures negative
Subjective as noted
Leukocytosis improving
ID following
# Obstructive renal stone status post cystoscopy and left ureteral stent placement
# Hematuria on admission
Operative finding of brisk efflux of frankly purulent debris after wire compression of left ureter c/w pyonephrosis, final KUB and cystoscopy confirming excellent stent position
Urology following
#hyperlipidemia
atorvastatin
#permanent atrial fibrillation
-EKG: ATRIAL FIBRILLATION. Afib on tele noted
-Metoprolol restarted. Intermittent episode of tachycardia noted.
# History of intraparenchymal brain hemorrhage
# History of vaginal bleeding status post hysteroscopy, D&C, polypectomy x 2 and LEEP procedure
-History of falls
- Due to patient risk of falls, brain hemorrhage, vaginal bleeding patient was taken off anticoagulation.
#HTN primary now with hypotension
- Lisinopril on hold due to elevated creatinine
Started on midodrine
#Chronic diastolic CHF
- daily weights
-strict I&o
#anxiety/depression
- Fluoxetine continued
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
#Code status: full code
#DVT prophylaxis: SCDs for now.
Anticipated Discharge: > 48 hours
Subjective/Interval History
-
Date of Service: March 18, 2025
Remains with atrial fibrillation
Intermittent episode of hypotension asymptomatic
Objective Data
-
Labs:
Laboratory Results
03/18/25
07:25
WBC 13.8 H
Hgb 9.6 L
Hct 28.4 L
Plt Count 266
Sodium 138
Potassium 4.4
Chloride 110 H
Carbon Dioxide 24
BUN 42 H
Creatinine 2.4 H
Glucose 93
Calcium 8.5
Total Bilirubin 0.5
AST 45 H
ALT 33
Alkaline Phosphatase 276 H
Vital Signs:
Vital Signs
Temp Pulse Resp BP Pulse Ox
98.3 F 118 18 82/54 98
03/18/25 11:22 03/18/25 12:19 03/18/25 11:22 03/18/25 12:19 03/18/25 11:22
I&O
03/17/25 03/18/25 03/19/25
06:59 06:59 06:59
Intake Total 1720 / 1720 480 / 480
Output Total 450 / 450 1200 / 1200
Balance 1270 / 1270 -720 / -720
Physical Exam
-
General: Well Developed and No Apparent Distress
HEENT: Normocephalic, Atraumatic and Moist Mucous Membranes
Respiratory: Clear to Auscultation
Cardiac: S1/S2, Irregular Rhythm and Tachycardic; Negative Murmur, Rub or Gallop
GI: Soft, Nontender, Nondistended and Normal Bowel Sounds; Negative Organomegaly
Rectal: Deferred by Provider
Genito-urinary: Farah
Musculoskeletal: No Clubbing, No Cyanosis and No Edema
Skin: Warm; Negative Rash
Neuro: Awake, No Motor Deficits and Nonfocal/Grossly Intact
Psych: Calm
Data Reviewed
-
Total Time Spent with Patient (in minutes): 55
--- NOTE | 2025-03-18 13:40 | CM ---
Chart reviewed. Transition to po abx.
Therapy evaluated, unsure of recommendation considering patient stated she hasn't been OOB in a year. Patient assist x2 at this time, unsure of PLOF.
Will cont to follow progress while in hospital
[2025-03-18 15:00] VITALS: BP 118/67
[2025-03-18] MEDS: LIPITOR 20 MG PO (17:25)
[2025-03-18 19:56] VITALS: BP 124/66
[2025-03-18 23:16] VITALS: BP 107/63
[2025-03-19] VITALS (7 sets, daily range): BP systolic 116–134; BP diastolic 75–100; PULSE 82–84; O2SAT 94; BMI 28.4
[2025-03-19 07:54] LABS: Hematocrit 28.6 % (37.0-47.0); Hemoglobin 9.4 g/dL (12.0-16.0); Mean Corp Hgb Conc. 32.9 g/dL (33.0-37.0); Mean Corpuscular Volume 91.7 fL (81.0-99.0); Platelet Count 264 10^3/uL (130-400); Red Cell Dist. Width 14.6 % (11.5-14.5)
[2025-03-19 08:20] LABS: ALT (SGPT) 30 U/L (0-35); AST (SGOT) 37 U/L (14-36); Albumin 2.9 g/dl (3.5-5.0); Alkaline Phosphatase 299 U/L (38-126); Blood Urea Nitrogen 32 mg/dl (7-17); Calcium 8.7 mg/dl (8.4-10.2); Carbon Dioxide 22 mmol/L (22-30); Chloride 113 mmol/L (98-107); Estimated Creatinine Clearance 22 ml/min; Glucose 87 mg/dl (70-99); Potassium 3.7 mmol/L (3.5-5.1); Sodium 141 mmol/L (135-145); Total Protein 5.8 g/dl (6.3-8.2); eGFR 24.48
[2025-03-19] MEDS: MIRALAX 17 GRAMS PO (08:32)
[2025-03-19] MEDS: PROZAC 40 MG PO (08:32)
[2025-03-19] MEDS: CIPRO 500 MG PO (08:33)
[2025-03-19] MEDS: TOPROL XL 50 MG PO (08:33)
[2025-03-19] MEDS: NSS (PRESERVATIVE FREE) 10 ML IV (08:34)
[2025-03-19] MEDS: NSS 1000 IV (08:41)
[2025-03-19] MEDS: PROTONIX IV 40 MG IV (08:41)
[2025-03-19] MEDS: BenGay-Like 1 APPLIC TOPICAL ×3 (08:41→22:42)
--- NOTE | 2025-03-19 10:35 | W.PN.UPDATE ---
Update Note
Progress Note Update
Urosepsis
Obstructing distal left ureteral stones
DANITZA on CKD
Proteus bacteremia
03/15: s/p emergent cystoscopy + left ureteral stent removal
- PO Cipro through 03/24/25 per ID
- F/U w/ Dr. Harrison in 2 weeks for preop visit to schedule ULS procedure
-
--- NOTE | 2025-03-19 11:51 | W.PN.HOSP.TC ---
Today's Communication/Plan
-
Continue with antibiotic
Fluids per nephrology
Continue to trend creatinine-improving slowly
PT and OT
Start dispo planning
Assessment / Plan
Assessment / Plan
#acute kidney injury on CKD stage IIIb
#hyperkalemia concern for dehydration
Potassium mildly improved. Creatinine remains elevated. Monitor urinary output.
Patient received normal saline x 2 bag, sodium bicarb, calcium gluconate in ER
Potassium stabilized. Status post bicarbonate infusion. Creatinine improved. Continue with normal saline per nephorlogy
Nephrology consulted
#sepsis secondary to Proteus bacteremia likely secondary to obstructive renal stone
WBC 26.7, tachycardia, hypotensive, temp 100.8-poa
Started patient on ceftriaxone 2 g and now transition to Cipro 500 mg daily.
Continue with IV fluids for now
Repeat surveillance cultures negative
Subjective as noted
Leukocytosis improving
ID following
# Obstructive renal stone status post cystoscopy and left ureteral stent placement
# Hematuria on admission
Operative finding of brisk efflux of frankly purulent debris after wire compression of left ureter c/w pyonephrosis, final KUB and cystoscopy confirming excellent stent position
Urology following
#hyperlipidemia
atorvastatin
#permanent atrial fibrillation
-EKG: ATRIAL FIBRILLATION. Afib on tele noted
-Metoprolol restarted. Intermittent episode of tachycardia noted.
# History of intraparenchymal brain hemorrhage
# History of vaginal bleeding status post hysteroscopy, D&C, polypectomy x 2 and LEEP procedure
-History of falls
- Due to patient risk of falls, brain hemorrhage, vaginal bleeding patient was taken off anticoagulation.
#HTN primary now with hypotension
- Lisinopril on hold due to elevated creatinine
monitor off midodrine
#Chronic diastolic CHF
- daily weights
-strict I&o
#anxiety/depression
- Fluoxetine continued
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
#Code status: full code
#DVT prophylaxis: SCDs History of intraparenchymal brain hemorrhage
update daughter in details on 03/18/25
PT/OT
Anticipated Discharge: 24 - 48 hours
Subjective/Interval History
-
Date of Service: March 19, 2025
heart rate is controlled
Objective Data
-
Labs:
Laboratory Results
03/19/25
06:52
WBC 13.1 H
Hgb 9.4 L
Hct 28.6 L
Plt Count 264
Sodium 141
Potassium 3.7
Chloride 113 H
Carbon Dioxide 22
BUN 32 H
Creatinine 2.0 H
Glucose 87
Calcium 8.7
Total Bilirubin 0.6
AST 37 H
ALT 30
Alkaline Phosphatase 299 H
Vital Signs:
Vital Signs
Temp Pulse Resp BP Pulse Ox
98.3 F 82 20 124/86 100
03/19/25 11:09 03/19/25 11:09 03/19/25 11:09 03/19/25 11:09 03/19/25 11:09
I&O
03/18/25 03/19/25 03/20/25
06:59 06:59 06:59
Intake Total 480 / 480 2 / 1562
Output Total 1200 / 1200
Balance -720 / -720 1561 / 156
Physical Exam
-
General: Well Developed and No Apparent Distress
HEENT: Normocephalic, Atraumatic and Moist Mucous Membranes
Respiratory: Clear to Auscultation
Cardiac: S1/S2, Irregular Rhythm and Tachycardic; Negative Murmur, Rub or Gallop
GI: Soft, Nontender, Nondistended and Normal Bowel Sounds; Negative Organomegaly
Rectal: Deferred by Provider
Genito-urinary: Farah
Musculoskeletal: No Clubbing, No Cyanosis and No Edema
Skin: Warm; Negative Rash
Neuro: Awake, No Motor Deficits and Nonfocal/Grossly Intact
Psych: Calm
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
[2025-03-19] MEDS: LIPITOR 20 MG PO (17:40)
[2025-03-20 05:57] LABS: Hematocrit 28.5 % (37.0-47.0); Hemoglobin 9.5 g/dL (12.0-16.0); Mean Corp Hgb Conc. 33.3 g/dL (33.0-37.0); Mean Corpuscular Volume 92.2 fL (81.0-99.0); Nucleated Red Blood Cells % 0 %; Platelet Count 286 10^3/uL (130-400); Red Cell Dist. Width 14.7 % (11.5-14.5)
[2025-03-20 06:00] VITALS: BMI 28.2
[2025-03-20 06:12] LABS: Blood Urea Nitrogen 25 mg/dl (7-17); Calcium 8.8 mg/dl (8.4-10.2); Carbon Dioxide 22 mmol/L (22-30); Chloride 112 mmol/L (98-107); Estimated Creatinine Clearance 23 ml/min; Glucose 90 mg/dl (70-99); Potassium 3.9 mmol/L (3.5-5.1); Sodium 141 mmol/L (135-145); eGFR 26.04
[2025-03-20 07:05] VITALS: BP 119/94
[2025-03-20] MEDS: BenGay-Like 1 APPLIC TOPICAL ×3 (08:38→21:58)
[2025-03-20] MEDS: PROZAC 40 MG PO (08:39)
[2025-03-20] MEDS: MIRALAX 17 GRAMS PO (08:39)
[2025-03-20] MEDS: CIPRO 500 MG PO (08:39)
[2025-03-20] MEDS: PROTONIX 40 MG PO (08:39)
[2025-03-20] MEDS: TOPROL XL 50 MG PO (08:39)
--- NOTE | 2025-03-20 11:14 | W.PN.URO.CBU ---
Today's Communication / Plan
-
per hospitalist but improving sepsis
Assessment / Plan
-
Urosepsis
Obstructing distal left ureteral stones with hydronephrosis
ARF
03/15: s/p cystoscopy + left ureteral stent placement (emergent)
Significant leukocytosis (albeit slightly improved)
Cr remains elevated
Oliguric
Diagnosis
-
Date of Service: March 20, 2025
-
Patient Diagnosis:
Post Op Day:
Patient Diagnosis:
Urosepsis
Obstructing distal left ureteral stones with hydronephrosis
ARF
Post Op Day:
03/15: s/p cystoscopy + left ureteral stent placement (emergent)
Subjective
-
improving
Objective
-
Vital Signs
Temp Pulse Resp BP Pulse Ox
97.6 F 88 20 119/94 97
03/20/25 07:05 03/20/25 07:05 03/20/25 07:05 03/20/25 07:05 03/20/25 08:40
Intake and Output
03/19/25 03/20/25 03/21/25
06:59 06:59 06:59
Intake Total 1562 / 1562
Balance 1562 / 1562
Intake:
Oral fluids 690 / 690
IV fluids (Total) 608 / 608
IV piggybacks 264 / 264
Other:
How many times incontinent 2
SMALL amount urine
How many times incontinent 1 1
MODERATE amount urine
How many times incontinent 2 3
SATURATED amount urine
Laboratory Results
03/20/25 05:10
03/20/25 05:10
Review of Systems
-
: Frequency and Urgency
Physical Exam
-
General - well developed, well nourished, no acute distress
Chest - clear bilaterally
Abdomen - soft, non-tender, positive bowel sounds, no CVAT, no incisional pain or distention
Genitalia - normal
Rectal - normal
Skin - warm & dry with no rash
Neuro - AOx3, no motor deficits
Extremities - no clubbing, no cyanosis, no edema
Incision - clean, dry
Dressing - clean, dry, intact
Care Review
Data Reviewed
CT Scan: Image Pers Reviewed
[2025-03-20 11:15] VITALS: BP 106/75
--- NOTE | 2025-03-20 11:17 | W.PN.HOSP.TC ---
Addendum entered and electronically signed by Pedro Moya MD 03/20/25 14:05:
Updated daughter over the phone in details
Addendum entered and electronically signed by Pedro Moya MD 03/20/25 13:19:
Called daughter to update. No response. Left voicemail to call back.
Original Note:
Today's Communication/Plan
-
Trend creatinine
Trend WBC
Continue with antibiotics
Monitor heart rate
Hold lisinopril
Assessment / Plan
Assessment / Plan
#acute kidney injury on CKD stage IIIb
#hyperkalemia concern for dehydration
Potassium mildly improved. Creatinine remains elevated. Monitor urinary output.
Patient received normal saline x 2 bag, sodium bicarb, calcium gluconate in ER
Potassium stabilized. Status post bicarbonate infusion. Creatinine improved to 1.9 .
s/p IVF.
Nephrology consulted
#sepsis secondary to Proteus bacteremia likely secondary to obstructive renal stone
WBC 26.7, tachycardia, hypotensive, temp 100.8-poa
Started patient on ceftriaxone 2 g and now transition to Cipro 500 mg daily.
Repeat surveillance cultures negative
Subjective as noted
Leukocytosis bumped
ID following
# Obstructive renal stone status post cystoscopy and left ureteral stent placement
# Hematuria on admission
Operative finding of brisk efflux of frankly purulent debris after wire compression of left ureter c/w pyonephrosis, final KUB and cystoscopy confirming excellent stent position
Urology following
#hyperlipidemia
atorvastatin
#permanent atrial fibrillation
-EKG: ATRIAL FIBRILLATION. Afib on tele noted
-Metoprolol restarted.
# History of intraparenchymal brain hemorrhage
# History of vaginal bleeding status post hysteroscopy, D&C, polypectomy x 2 and LEEP procedure
-History of falls
- Due to patient risk of falls, brain hemorrhage, vaginal bleeding patient was taken off anticoagulation.
#HTN primary now with hypotension
- Lisinopril on hold due to elevated creatinine
monitor off midodrine
#Chronic diastolic CHF
- daily weights
-strict I&o
#anxiety/depression
- Fluoxetine continued
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
#Code status: full code
#DVT prophylaxis: SCDs History of intraparenchymal brain hemorrhage
PT/OT
Anticipated Discharge: 24 - 48 hours
Subjective/Interval History
-
Date of Service: March 20, 2025
Resting in bed comfortably. Afebrile.
Bump in WBC noted
Objective Data
-
Labs:
Laboratory Results
03/20/25
05:10
WBC 14.4 H
Hgb 9.5 L
Hct 28.5 L
Plt Count 286
Sodium 141
Potassium 3.9
Chloride 112 H
Carbon Dioxide 22
BUN 25 H
Creatinine 1.9 H
Glucose 90
Calcium 8.8
Vital Signs:
Vital Signs
Temp Pulse Resp BP Pulse Ox
97.6 F 88 20 119/94 97
03/20/25 07:05 03/20/25 07:05 03/20/25 07:05 03/20/25 07:05 03/20/25 08:40
I&O
03/19/25 03/20/25 03/21/25
06:59 06:59 06:59
Intake Total 1562 / 1562
Balance 1562 / 1562
Physical Exam
-
General: Well Developed and No Apparent Distress
HEENT: Normocephalic, Atraumatic and Moist Mucous Membranes
Respiratory: Clear to Auscultation
Cardiac: S1/S2 and Irregular Rhythm; Negative Murmur, Rub or Gallop
GI: Soft, Nontender, Nondistended and Normal Bowel Sounds; Negative Organomegaly
Rectal: Deferred by Provider
Musculoskeletal: No Clubbing, No Cyanosis and No Edema
Skin: Warm; Negative Rash
Neuro: Awake, No Motor Deficits and Nonfocal/Grossly Intact
Psych: Calm
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
[2025-03-20 15:21] VITALS: BP 108/71
[2025-03-20] MEDS: LIPITOR 20 MG PO (17:01)
[2025-03-20 20:15] VITALS: BP 131/82
[2025-03-20 23:30] VITALS: BP 119/74
[2025-03-21] VITALS (8 sets, daily range): BP systolic 102–201; BP diastolic 71–103; BMI 29.7
[2025-03-21 06:29] LABS: Hematocrit 29.9 % (37.0-47.0); Hemoglobin 9.7 g/dL (12.0-16.0); Mean Corp Hgb Conc. 32.4 g/dL (33.0-37.0); Mean Corpuscular Volume 92.0 fL (81.0-99.0); Nucleated Red Blood Cells % 0 %; Platelet Count 317 10^3/uL (130-400); Red Cell Dist. Width 14.6 % (11.5-14.5)
[2025-03-21 06:51] LABS: Blood Urea Nitrogen 22 mg/dl (7-17); Calcium 9.1 mg/dl (8.4-10.2); Carbon Dioxide 26 mmol/L (22-30); Chloride 113 mmol/L (98-107); Estimated Creatinine Clearance 26 ml/min; Glucose 101 mg/dl (70-99); Potassium 3.6 mmol/L (3.5-5.1); Sodium 144 mmol/L (135-145); eGFR 29.76
--- NOTE | 2025-03-21 08:42 | W.PN.URO.CBU ---
Today's Communication / Plan
-
plan per hospitalist
Assessment / Plan
-
Urosepsis
Obstructing distal left ureteral stones with hydronephrosis
ARF
03/15: s/p cystoscopy + left ureteral stent placement (emergent)
Significant leukocytosis (albeit slightly improved)
Cr remains elevated
Oliguric
Diagnosis
-
Date of Service: March 21, 2025
-
Patient Diagnosis:
Post Op Day:
Patient Diagnosis:
Post Op Day:
Patient Diagnosis:
Urosepsis
Obstructing distal left ureteral stones with hydronephrosis
ARF
Post Op Day:
03/15: s/p cystoscopy + left ureteral stent placement (emergent)
Subjective
-
ready for home
Objective
-
Vital Signs
Temp Pulse Resp BP Pulse Ox
97.5 F 92 12 189/96 96
03/21/25 07:00 03/21/25 07:00 03/21/25 07:00 03/21/25 07:20 03/21/25 07:00
Intake and Output
03/20/25 03/21/25 03/22/25
06:59 06:59 06:59
Intake Total 720 / 720
Balance 720 / 720
Intake:
Oral fluids 720 / 720
Other:
How many times incontinent 1 1
MODERATE amount urine
How many times incontinent 3 3
SATURATED amount urine
Laboratory Results
03/21/25 05:52
03/21/25 05:52
Review of Systems
-
: Frequency and Urgency
Physical Exam
-
General - well developed, well nourished, no acute distress
Chest - clear bilaterally
Abdomen - soft, non-tender, positive bowel sounds, no CVAT, no incisional pain or distention
Genitalia - normal
Rectal - normal
Skin - warm & dry with no rash
Neuro - AOx3, no motor deficits
Extremities - no clubbing, no cyanosis, no edema
Incision - clean, dry
Dressing - clean, dry, intact
Care Review
Data Reviewed
Discussed with: Nursing
CT Scan: Image Pers Reviewed
[2025-03-21] MEDS: BenGay-Like 1 APPLIC TOPICAL ×3 (09:00→20:35)
[2025-03-21] MEDS: CIPRO 500 MG PO (09:11)
[2025-03-21] MEDS: PROZAC 40 MG PO (09:11)
[2025-03-21] MEDS: PROTONIX 40 MG PO (09:12)
[2025-03-21] MEDS: MIRALAX PO (09:12)
[2025-03-21] MEDS: TOPROL XL 50 MG PO (09:12)
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
--- NOTE | 2025-03-21 12:30 | W.PN.HOSP.TC ---
Today's Communication/Plan
-
ID input
Continue with Cipro
Monitor blood pressure
Trend creatinine improving
Case management for dispo-discussed with patient and daughter
Assessment / Plan
Assessment / Plan
General: Well Developed and No Apparent Distress
HEENT: Normocephalic, Atraumatic and Moist Mucous Membranes
Respiratory: Clear to Auscultation
Cardiac: S1/S2 and Irregular Rhythm; Negative Murmur, Rub or Gallop
GI: Soft, Nontender, Nondistended and Normal Bowel Sounds; Negative Organomegaly
Rectal: Deferred by Provider
Musculoskeletal: No Clubbing, No Cyanosis and No Edema
Skin: Warm; Negative Rash
Neuro: Awake, No Motor Deficits and Nonfocal/Grossly Intact
Psych: Calm
#acute kidney injury on CKD stage IIIb
#hyperkalemia concern for dehydration
Potassium mildly improved. Creatinine remains elevated. Monitor urinary output.
Patient received normal saline x 2 bag, sodium bicarb, calcium gluconate in ER
Potassium stabilized. Status post bicarbonate infusion. Creatinine improved to 1.7.
s/p IVF.
Nephrology consulted
#sepsis secondary to Proteus bacteremia likely secondary to obstructive renal stone
WBC 26.7, tachycardia, hypotensive, temp 100.8-poa
Started patient on ceftriaxone 2 g and now transition to Cipro 500 mg daily.
Repeat surveillance cultures negative
WBC bumped x 48 hours. Remains afebrile. No cough. No diarrhea.
Will ask ID input. Unclear if need to transition to IV antibiotics. Or taking prolonged time for WBC to downtrend and plateau
# Obstructive renal stone status post cystoscopy and left ureteral stent placement
# Hematuria on admission
Operative finding of brisk efflux of frankly purulent debris after wire compression of left ureter c/w pyonephrosis, final KUB and cystoscopy confirming excellent stent position
Urology following
#hyperlipidemia
atorvastatin
#permanent atrial fibrillation
-EKG: ATRIAL FIBRILLATION. Afib on tele noted
-Metoprolol restarted.
# History of intraparenchymal brain hemorrhage
# History of vaginal bleeding status post hysteroscopy, D&C, polypectomy x 2 and LEEP procedure
-History of falls
- Due to patient risk of falls, brain hemorrhage, vaginal bleeding patient was taken off anticoagulation.
#HTN primary now with hypotension
- Lisinopril on hold due to elevated creatinine
monitor off midodrine
#Chronic diastolic CHF
- daily weights
-strict I&o
#anxiety/depression
- Fluoxetine continued
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
#Code status: full code
#DVT prophylaxis: SCDs History of intraparenchymal brain hemorrhage
PT/OT -home 24-hour versus LTC we will ask case management for further disposition planning.
Updated daughter over the phone in details.
Anticipated Discharge: > 48 hours
Subjective/Interval History
-
Date of Service: March 21, 2025
No overnight events. Remains afebrile. Denies cough. Abdominal pain. Nausea or vomiting.
Objective Data
-
Labs:
Laboratory Results
03/21/25
05:52
WBC 14.6 H
Hgb 9.7 L
Hct 29.9 L
Plt Count 317
Sodium 144
Potassium 3.6
Chloride 113 H
Carbon Dioxide 26
BUN 22 H
Creatinine 1.7 H
Glucose 101 H
Calcium 9.1
Vital Signs:
Vital Signs
Temp Pulse Resp BP Pulse Ox
97.8 F 88 16 102/71 99
03/21/25 11:00 03/21/25 11:00 03/21/25 11:00 03/21/25 11:00 03/21/25 11:00
I&O
03/20/25 03/21/2503/22/25
06:59 06:59 06:59
Intake Total 720 / 720
Balance 720 / 720
Data Reviewed
-
Total Time Spent with Patient (in minutes): 55
[2025-03-21] MEDS: TRANDATE 10 MG IV (15:41)
--- NOTE | 2025-03-21 15:51 | PTCARENOTE ---
Pt's B/P elevated on and off throughout shift. Last B/P 182/71 automatically and 170/[address] Moya made aware and Labetolol 10mg IV given. Care ongoing.
[2025-03-21] MEDS: LIPITOR 20 MG PO (17:19)
[2025-03-22] MEDS: TRANDATE 10 MG IV (03:05)
[2025-03-22 03:13] VITALS: BP 178/101
[2025-03-22 04:51] VITALS: BP 136/93
[2025-03-22 06:00] VITALS: BMI 29.1
[2025-03-22 07:00] VITALS: BP 128/76
[2025-03-22 07:07] LABS: Hematocrit 29.1 % (37.0-47.0); Hemoglobin 9.5 g/dL (12.0-16.0); Mean Corp Hgb Conc. 32.6 g/dL (33.0-37.0); Mean Corpuscular Volume 92.1 fL (81.0-99.0); Nucleated Red Blood Cells % 0 %; Platelet Count 333 10^3/uL (130-400); Red Cell Dist. Width 14.6 % (11.5-14.5)
[2025-03-22 07:32] LABS: Blood Urea Nitrogen 17 mg/dl (7-17); Calcium 8.9 mg/dl (8.4-10.2); Carbon Dioxide 27 mmol/L (22-30); Chloride 113 mmol/L (98-107); Estimated Creatinine Clearance 27 ml/min; Glucose 99 mg/dl (70-99); Potassium 3.8 mmol/L (3.5-5.1); Sodium 143 mmol/L (135-145); eGFR 32.00
[2025-03-22] MEDS: PROTONIX 40 MG PO (08:30)
[2025-03-22] MEDS: PROZAC 40 MG PO (08:30)
[2025-03-22] MEDS: TOPROL XL 50 MG PO (08:30)
[2025-03-22] MEDS: CIPRO 500 MG PO (08:30)
[2025-03-22] MEDS: BenGay-Like 1 APPLIC TOPICAL ×2 (08:30→15:10)
[2025-03-22 11:00] VITALS: BP 160/88
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
--- NOTE | 2025-03-22 12:14 | W.PN.HOSP.TC ---
Today's Communication/Plan
-
P.o. antibiotic
Hold lisinopril
Outpatient PCP follow-up
Outpatient urology follow-up
Assessment / Plan
Assessment / Plan
General: Well Developed and No Apparent Distress
HEENT: Normocephalic, Atraumatic and Moist Mucous Membranes
Respiratory: Decreased breath sounds, stable on room air, not tachypneic, not using accessory muscles to breathe. Talkative.
Cardiac: S1/S2 and Irregular Rhythm; Negative Murmur, Rub or Gallop
GI: Soft, Nontender, Nondistended and Normal Bowel Sounds; Negative Organomegaly
Rectal: Deferred by Provider
Musculoskeletal: No Clubbing, No Cyanosis and No Edema
Skin: Warm; Negative Rash
Neuro: Awake, No Motor Deficits and Nonfocal/Grossly Intact
Psych: Calm
#acute kidney injury on CKD stage IIIb
#hyperkalemia concern for dehydration
Potassium mildly improved. Creatinine remains elevated. Monitor urinary output.
Patient received normal saline x 2 bag, sodium bicarb, calcium gluconate in ER
Potassium stabilized. Status post bicarbonate infusion. Creatinine improved to 1.6
s/p IVF.
Nephrology consulted. Discussed with nephrology okay for discharge. Okay for discharge per urology.
#sepsis secondary to Proteus bacteremia likely secondary to obstructive renal stone
WBC 26.7, tachycardia, hypotensive, temp 100.8-poa
Started patient on ceftriaxone 2 g and now transition to Cipro 500 mg daily.
Repeat surveillance cultures negative
WBC down trended. Remains afebrile. Continue course of Cipro.
# Obstructive renal stone status post cystoscopy and left ureteral stent placement
# Hematuria on admission
Operative finding of brisk efflux of frankly purulent debris after wire compression of left ureter c/w pyonephrosis, final KUB and cystoscopy confirming excellent stent position
Urology following
Patient will need to follow-up outpatient with for further stone management and ureteral stent removal-daughter is aware.
#hyperlipidemia
atorvastatin
#permanent atrial fibrillation
-EKG: ATRIAL FIBRILLATION. Afib on tele noted
-Metoprolol restarted.
# History of intraparenchymal brain hemorrhage
# History of vaginal bleeding status post hysteroscopy, D&C, polypectomy x 2 and LEEP procedure
-History of falls
- Due to patient risk of falls, brain hemorrhage, vaginal bleeding patient was taken off anticoagulation.
#HTN primary labile
With metoprolol and outpatient PCP follow-up for further management
#Chronic diastolic CHF
- daily weights
-strict I&o
#anxiety/depression
- Fluoxetine continued
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
#Code status: full code
#DVT prophylaxis: SCDs History of intraparenchymal brain hemorrhage
PT/OT -home with aides. Patient refused SNF.
Updated daughter over the phone in details.
More than 30 minutes spent in discharge including
Final examination of the patient
Summarizing hospital stay
Instructions for continuing care to all relevant caregivers
Preparation of discharge records, prescriptions, and referral forms
Total time spent (in minutes): 52
Anticipated Discharge: Today
Subjective/Interval History
-
Date of Service: March 22, 2025
Feeling better
Patient remains afebrile
Patient voiding without any difficulty
Objective Data
-
Labs:
Laboratory Results
03/22/25
06:48
WBC 14.1 H
Hgb 9.5 L
Hct 29.1 L
Plt Count 333
Sodium 143
Potassium 3.8
Chloride 113 H
Carbon Dioxide 27
BUN 17
Creatinine 1.6 H
Glucose 99
Calcium 8.9
Vital Signs:
Vital Signs
Temp Pulse Resp BP Pulse Ox
98.2 F 88 16 160/88 93
03/22/25 11:00 03/22/25 11:00 03/22/25 11:00 03/22/25 11:00 03/22/25 11:00
I&O
03/21/25 03/22/25 03/23/25
06:59 06:59 06:59
Intake Total 720 / 720
Balance 720 / 720
--- NOTE | 2025-03-22 12:32 | W.DCSUMMARY ---
Discharge Summary
Discharge Data
Date of Admission: 03/15/25
Date of Discharge: 03/22/25
-
Pending Results: No
Hospital Course
80-year-old female extensive past medical history of atrial fibrillation, hypertension labile, chronic diastolic heart failure, anxiety, depression, history of intraparenchymal brain hemorrhage, history of vaginal bleeding status post hysteroscopy,
polypectomy, CKD who is presenting with sepsis. Patient was found obstructive renal stone. Patient was eval by urology and underwent to the operating room Operative finding of brisk efflux of frankly purulent debris after wire compression of left
ureter c/w pyonephrosis, final KUB and cystoscopy confirming excellent stent position. Postop patient was also found to have a bacteremia. Patient was maintained on high dose of IV antibiotics with ceftriaxone. Surveillance cultures remain
[facility]. Patient also had DANITZA on CKD. Patient received IV fluid resuscitation. IV fluids was managed by nephrology. Patient with significant improvement in renal function. Farah catheter was removed and
patient was voiding without difficulty. Patient creatinine continued to trend down. Patient was also complaining of shortness of breath at times however patient remained stable on room air. Patient without any tachypnea, use of accessory muscle
or chest pain. Patient was comfortable and was able to speak in complete sentences without any difficulties. Patient denied any chest pain or chest discomfort with deep inspiration. No PND orthopnea. Patient with leukocytosis with downtrend.
discussed with Dr. Isabel recommended patient to continue ciprofloxacin for additional 2 weeks. Patient QTc was normal at 400. Patient will need to follow-up with Dr. Harrison for further stone management and ureteral stent removal. Family is
aware. Patient refused SNF. Patient be discharged home with assistance of aids. Patient daughter was updated about hospitalization.
Discharge Plan
-
Patient Disposition: Home with Home Care
Discharge Diagnosis/Procedures: Acute kidney injury chronic kidney disease stage IIIb
Sepsis secondary to Proteus bacteremia secondary to obstructive renal stone
Obstructive renal stone status post cystoscopy and left ureteral stent placement
Condition: Fair
Diet: As tolerated
Activity: With assistance
Driving Restrictions: No driving
Blood Work: BMP and CBC in 1 week via primary doctor
Activity Restrictions/Additional Instructions:
Continue ciprofloxacin for additional 2 weeks.
Referrals:
Naresh Harrison MD [Active, Urology]
Referral Note: Please schedule a follow up visit with Dr. Harrison in 10-14 days from your date of surgery (02/12) - you will be scheduled for outpatient kidney stone surgery to treat your obstructing stones.
Maren Conner CRNP [Family Provider, General] - in less than 1 week
Prescriptions:
New
ciprofloxacin HCl [Cipro] 500 mg tablet
500 mg PO DAILY Qty: 14 0RF
Continued
atorvastatin 20 MG tablet
20 mg PO QPM
fluoxetine 40 mg Capsule
40 mg PO DAILY
metoprolol succinate [Toprol XL] 50 mg Tablet Extended Release 24 Hr
50 mg PO DAILY
therapeutic multivitamin Tablet
1 tab PO DAILY
Discontinued
lisinopril 2.5 mg Tablet
2.5 mg PO DAILY
Discharge Orders:
Discharge Patient (As Directed); Ordered 03/22/25
Ordered By: Pedro Moya
Discharge Date and Time
Discharge Date/Time: 03/22/25 19:04
Print Language: KENYAN
--- NOTE | 2025-03-22 12:50 | W.PN.URO.CBU ---
Today's Communication / Plan
-
HOME WITH OUTPATIENT FOLLW UP FOR DEFINIVE STONE MANGEMENT
Assessment / Plan
-
Urosepsis
Obstructing distal left ureteral stones with hydronephrosis
ARF
03/15: s/p cystoscopy + left ureteral stent placement (emergent)
Significant leukocytosis (albeit slightly improved)
Cr remains elevated
Oliguric
Diagnosis
-
Date of Service: March 22, 2025
-
Patient Diagnosis:
Post Op Day:
Patient Diagnosis:
Post Op Day:
Patient Diagnosis:
Post Op Day:
Patient Diagnosis:
Urosepsis
Obstructing distal left ureteral stones with hydronephrosis
ARF
Post Op Day:
03/15: s/p cystoscopy + left ureteral stent placement (emergent)
Subjective
-
FEELS WELL ASX
Objective
-
Vital Signs
Temp Pulse Resp BP Pulse Ox
98.2 F 88 16 160/88 93
03/22/25 11:00 03/22/25 11:00 03/22/25 11:00 03/22/25 11:00 03/22/25 11:00
Intake and Output
03/21/25 03/22/25 03/23/25
06:59 06:59 06:59
Intake Total 720 / 720
Balance 720 / 720
Intake:
Oral fluids 720 / 720
Other:
How many times incontinent 1 1
MODERATE amount urine
How many times incontinent 3 2
SATURATED amount urine
Laboratory Results
03/22/25 06:48
03/22/25 06:48
Review of Systems
-
: Frequency and Urgency
Physical Exam
-
General - well developed, well nourished, no acute distress
Chest - clear bilaterally
Abdomen - soft, non-tender, positive bowel sounds, no CVAT, no incisional pain or distention
Genitalia - normal
Rectal - normal
Skin - warm & dry with no rash
Neuro - AOx3, no motor deficits
Extremities - no clubbing, no cyanosis, no edema
Incision - clean, dry
Dressing - clean, dry, intact
Counseling
-
HOME
Care Review
Data Reviewed
Discussed with: Nursing
--- NOTE | 2025-03-22 14:35 | CM ---
Patient with Dx DANITZA, hyperkalemia, sepsis, Obstructive renal stone s/p cystoscopy/left ureteral stent placement, suspected encephalopathy post op. Room air. PT/OT; assist of 2, recommend 24 hr care.
Met with patient and spoke with daughter Radha by phone; both agree with d/c home today by ambulance. IMM completed. Informed daughter that patient was not ambulating while here- daughter reconfirms that patient was ambulating short distances
at home. She is comfortable with her mother returning home as she has a caregiver in place. Daughter agrees to home care for SN/PT/OT and chooses [facility] that patient had previously. Caregiver in room.
Referral to [facility] via [employer] (fax [phone]).
Plan home today with [facility] by ambulance.
[2025-03-22 15:00] VITALS: BP 124/94
[2025-03-22] MEDS: PREVNAR 20 0.5 ML IM (15:11)
[2025-03-22] MEDS: LIPITOR 20 MG PO (17:56)
== END 2025-03-22 19:04 | disposition home health service (06) | DRG 854 ==
LOC: 4 WEST ACU 13:48
PROVIDERS: Registered Nurse; Specialist; Surgery; ADMITTING PHYSICIAN Hospitalist; ATTENDING PHYSICIAN Hospitalist; CONSULT PHYSICIAN Internal Medicine Infectious Disease; CONSULT PHYSICIAN Internal Medicine Nephrology; EMERGENCY PHYSICIAN Emergency Medicine; FAMILY PHYSICIAN Nurse Practitioner Adult Health
PROC: 0T778DZ Dilation of Left Ureter with Intraluminal Device, Via Natural or Artificial Opening Endoscopic (ICD-10-PCS; 2025-03-15)
PROC: 3E0234Z Introduction of Serum, Toxoid and Vaccine into Muscle, Percutaneous Approach (ICD-10-PCS; 2025-03-22)
DX: A41.59 Other Gram-negative sepsis (principal); I13.0 Hypertensive heart and chronic kidney disease with heart failure and stage 1 through stage 4 chronic kidney disease, or unspecified chronic kidney disease; N17.9 Acute kidney failure, unspecified; N13.6 Pyonephrosis; I48.21 Permanent atrial fibrillation; I50.42 Chronic combined systolic (congestive) and diastolic (congestive) heart failure; E87.5 Hyperkalemia; N18.32 Chronic kidney disease, stage 3b; F32.A Depression, unspecified; Z23 Encounter for immunization
CPT/HCPCS: 70450; 71046; 74018; 74176; 76000; 80048; 80053; 81003; 81015; 82570; 83605; 84156; 84300; 85025; 85027; 86850; 86900; 86901; 87040; 87077; 87154; 87186; 87205; 90677; 93005; 96360; 96361; 97163; 97167; 97530; 99291; C2617; G0009

== ENCOUNTER 2025-03-25 03:05 | Inpatient (IN) | payer OTHER, SELFPAY ==
[2025-03-24 21:55] VITALS: BMI 26.3
[2025-03-24 21:58] VITALS: BP 142/82
[2025-03-24 22:01] VITALS: BP 142/82
--- NOTE | 2025-03-24 22:08 | PHANOTE ---
03/24/2025, used discharge paperwork from 03/22/2025, pharmacy records, and [facility] records from 02/04/2025 to compile a list of pt.'s meds. and confirm them.
[2025-03-24 22:18] LABS: Urine Character Clear (Clear)
[2025-03-24 22:28] LABS: Urine Red Blood Cell >100 /HPF (0-2); Urine Squamous Cell 0-2 /LPF (Few)
[2025-03-24 22:29] LABS: Urine White Cell 30-40 /HPF (0-5)
[2025-03-24 22:32] LABS: Hematocrit 28.6 % (37.0-47.0); Hemoglobin 9.5 g/dL (12.0-16.0); Mean Corp Hgb Conc. 33.2 g/dL (33.0-37.0); Mean Corpuscular Volume 89.4 fL (81.0-99.0); Nucleated Red Blood Cells % 0 %; Platelet Count 380 10^3/uL (130-400); Red Cell Dist. Width 15.0 % (11.5-14.5)
[2025-03-24 22:36] LABS: ALT (SGPT) 18 U/L (0-35); AST (SGOT) 29 U/L (14-36); Albumin 3.2 g/dl (3.5-5.0); Alkaline Phosphatase 352 U/L (38-126); Blood Urea Nitrogen 20 mg/dl (7-17); Calcium 9.1 mg/dl (8.4-10.2); Carbon Dioxide 26 mmol/L (22-30); Chloride 110 mmol/L (98-107); Estimated Creatinine Clearance 26 ml/min; Glucose 183 mg/dl (70-99); Sodium 139 mmol/L (135-145); Total Protein 6.7 g/dl (6.3-8.2); eGFR 34.58
[2025-03-24 22:39] LABS: COVID-19 Antigen Negative (Negative)
[2025-03-24 22:44] LABS: Potassium 3.9 mmol/L (3.5-5.1)
[2025-03-24 22:57] VITALS: BP 113/79
[2025-03-24 23:00] VITALS: BP 107/67
[2025-03-25] VITALS (13 sets, daily range): BP systolic 92–161; BP diastolic 59–98; BMI 27.6
--- NOTE | 2025-03-25 01:10 | ED.GENMED ---
History of Present Illness
General
Chief Complaint: Breathing Problem
Source: patient and family (Daughter who lives in [place])
Exam Limitations: clinical condition
Time Seen by Provider: 03/25/25 00:56
Nursing documentation reviewed up to this point in time: agreed with
History of Present Illness
History of Present Illness:
Note:
CHIEF COMPLAINT(S)
Shortness of breath.
HISTORY OF PRESENT ILLNESS
The patient is an 80-year-old female who presents with shortness of breath. Her daughter, residing in [place], mentioned that the patient has been experiencing shortness of breath since being discharged from the hospital. The patient was
noted to have oxygen saturation levels in the mid-80s on room air. Paramedics started her on 6 L. She was dropped down to 4 L upon arrival to the emergency department.
ADDITIONAL HISTORY OBTAINED FROM SOURCES OTHER THAN THE PATIENT
The patients daughter, who is in [place], reported that the patient has had ongoing shortness of breath. This information was conveyed during a call to the nurse
PHYSICAL EXAM
- Vital signs reviewed
- Respiratory: Oxygen saturation of mid-80s on room air indicating possible respiratory distress
PROBLEM LIST
- Acute: Shortness of breath
DIFFERENTIAL DIAGNOSIS
The Differential Diagnosis includes, in no particular order and is not limited to:
1. Congestive heart failure
2. Chronic obstructive pulmonary disease exacerbation
3. Pneumonia
4. Pulmonary embolism
5. Acute coronary syndrome
6. Asthma exacerbation
7. Interstitial lung disease
8. Sepsis
9. Acute respiratory distress syndrome (ARDS)
10. Pleural effusion
CARE-UPDATE
03/25/25 - 01:26
Patient was discharged two days ago following admission for kidney stones. Since discharge, patient developed shortness of breath, which persisted for two days before seeking emergency care today. Patients daughter, Radha Sotne from [place], [place],
facilitated the visit to the emergency department.
CARE-UPDATE
03/25/25 - :29
Patient follow-up indicates significant progress in renal function, with laboratory results showing normalization of creatinine levels. The patient reports adherence to the prescribed cephalexin regimen with no adverse effects. No further urinary
symptoms have been noted since discharge. Family continues to be supportive and engaged in the care process. Urology follow-up is scheduled to assess the stent status and discuss the plan for its removal.
CARE-UPDATE
03/25/25 - :30
White blood cell count has increased to 17.4 from 14.1. Potassium has improved to 3.9 from a previous level of 6.0. Alkaline phosphatase is elevated at 352, up from 299. Urinalysis reveals moderate white blood cells, moderate bacteria, and 2+
leukocyte esterase.
CARE-UPDATE
03/25/25 - :35
Moderate acute interstitial and alveolar cardiogenic pulmonary edema is noted, with significant bilateral lower airspace consolidations. There are moderate right-sided and small left pleural effusions present. The heart is enlarged, and there is
very severe calcific atherosclerotic plaque within the coronary arteries and thoracic aorta.
Disposition:
SUMMARY OF ENCOUNTER
The patient, an 80-year-old female, presented to the emergency department with febrile symptoms and increased difficulty breathing. According to her daughter, the patients difficulty breathing began after discharge from a previous hospital admission
and has progressively worsened. The patient lives at home with assistance.
DISPOSITION
Admit.
ASSESSMENT
Pulmonary edema and pleural effusion were noted on the chest x-ray. The patient requires ICU admission for further management due to worsening respiratory condition.
EMERGENCY TREATMENTS ADMINISTERED
The patient was started on vancomycin and piperacillin-tazobactam (brand name Zosyn).
MANAGEMENT OF THE PATIENTS CARE WAS DISCUSSED WITH
Neurology was consulted and will see the patient in the morning.
INDEPENDENT REVIEW OF LABS AND INTERPRETATION OF TESTS
My independent interpretation of the chest x-ray shows pulmonary edema and pleural effusion.
MEDICATION RECONCILIATION
Vancomycin and piperacillin-tazobactam were administered.
MEDICAL DECISION MAKING
-Complexity of Data Reviewed: Chronic conditions affecting care include heart failure. Differential diagnosis includes congestive heart failure, chronic obstructive pulmonary disease exacerbation, pneumonia, pulmonary embolism, acute coronary
syndrome, asthma exacerbation, interstitial lung disease, anemia, acute respiratory distress syndrome (ARDS), and pleural effusion.
-Data:
Category 1: My independent interpretation of the chest x-ray indicates pulmonary edema and pleural effusion.
Category 3: Neurology was consulted for further patient management.
DIAGNOSIS
Pulmonary edema (ICD-10 code J81.0), Pleural effusion (ICD-10 code J91.8).
Past History
Past History
ED Past Medical History: Arrthythmia and CVA
Social History
Tobacco: Non-smoker
Alcohol: None
Drug: None
Living: alone
Employment: Not employed
Phy Exam
General Physical Exam
General Presentation: moderate distress (Exam limited due to patient condition)
General age: appears older than age
General Skin: warm
General Habitus: debilitated, elderly and frail
Cardiovascular Exam
Systolic Murmur: 2/6
Pulmonary Exam
Pulmonary Exam: chest non tender, decreased breath sounds and generalized wheezing
Scores
Heart Failure Risk
Heart Failure Risk Score: Not Applicable
Sepsis
Sepsis Screening
Sepsis Assessment: Severe Sepsis
Sepsis Screening: Urine output- <0.5ml/kg/hr for 2 consecutive hours
Sepsis Screen
Sepsis Screen: Severe Sepsis
Date: 03/26/25
Time: 02:18
Course
Orders/Labs/Results
Orders:
Orders
03/24/25 22:00
Electrocardiogram (*1) Urgent
Reason for Study: Tachycardia
EKG- Treatment ONCE
CR Chest - 2 Views Urgent
Comment:
Reason For Exam: SOB
03/24/25 22:10
COVID-19 Antigen Urgent
Source: Nasal Swab
Complete Blood Count/With Diff Urgent
Comprehensive Metabolic Panel Urgent
Lactic Acid Urgent
NT-proBNP Urgent
Comment: ADD ON
Urinalysis Reflex To Culture Urgent
Date Specimen was Collected: 03/24/25
Time Specimen was Collected: 22:00
Urine Microscopic Reflex Cult Urgent
Influenza A+B Rapid Molecular Urgent
[facility]RAY[place] Source: Nasal Swab
Specimen Description:
Date Specimen was Collected: 03/24/25
Time Specimen was Collected: 22:00
Urine Culture Urgent
BRAYDEN Source: U
Specimen Description:
Date Specimen was Collected: 03/24/25
Time Specimen was Collected: 22:00
03/25/25 01:19
Acetaminophen 1000MG/100Ml [Ofirmev] 1,000 mg in 100 ml IV ONCE
Acetaminophen IV Indication:: Targeted Temp Management
03/25/25 01:20
0.9% Sodium Chloride 1000 ml [Nss] 1,000 ml IV BOLUS
03/25/25 01:24
Piperacillin/Tazo 4.5 Gram [Zosyn] 4.5 gram in 100 ml IV NOW
03/25/25 01:31
Blood Culture Urgent
[facility]RAYDEN Source: Blood/Venous
Specimen Description:
03/25/25 01:33
Vancomycin [Vancocin] 2,000 mg 0.9% Sodium Chloride 500 ml [Nss] 500 ml IV NOW
03/25/25 01:41
CT Abd/pel Without Iv Or Oral Urgent
Comment:
Reason For Exam: stent placement
03/25/25 01:45
Blood Culture Urgent
[place]RAYDEN Source: Blood/Venous
Specimen Description:
03/25/25 01:55
Diltiazem HCl [Cardizem] 5 mg IV NOW STA
03/25/25 02:12
Add On- LAB Routine
Tests Added?: proBNP
03/25/25 02:13
CARDIOLOGY CONSULT Routine
Consulting Provider: Jacky Campos
Was physician already notified: No
Reason for consult: CHF, Afib
Consult Notification Routine
Specialty to Notify: Urology
Date consulting provider notified: 03/25/25
Time consulting provider notified: 07:06
Notified:: Provider
Comment: TT
UROLOGY CONSULT Routine
Consulting Provider: Adriano Tang Jr.
Was physician already notified: No
Comment: JJ stent recnt infection
03/25/25 02:14
Admit/Transfer Patient As Directed
Co-Sign Provider:
Level of Care: Inpatient admission
Assign to:: IMU- Intermediate Care
Physician / Group: Hospitalist
Diagnosis: sepsis
Reason for Hospitalization: sepsis
Expected length of stay greater than two midnights?: Yes
ELOS- Estimated Length of Stay in days: 4
I certify the patient meets the requirements for IP care: Yes
Code Status As Directed
Resuscitation Status: Do not resuscitate
Reached after discussion with pt or family/Healthcare POA: Yes
Consult Notification Routine
Specialty to Notify: Cardiology
Date consulting provider notified: 03/25/25
Time consulting provider notified: 07:05
Notified:: Provider
Comment: TT
PRN Pain Medication Management As Directed
May give lesser potent ordered pain med per pt: Yes
preference::
Protocol:: Medication orders for pain may be administered in a
manner that supports deferring to patient preference
when the pt is:
- Requesting an ordered lesser potent pain medication.
Least to most potent pain medications are defined
as: acetaminophen < NSAID < tramadol < opioids
(morphine, oxycodone, hydromorphone).
- Requesting a lesser dose of the same medication IF
ORDERED.
- Requesting a less intrusive route of administration
if both routes are prescribed by the provider (PO <
IV).
03/25/25 02:16
DNR Bracelet Application ONCE
03/25/25 03:00
Flush (0.9% Sodium Chloride) [Flush (Nss)] See Dose Instructions IV PER PROTOCOL
03/25/25 03:09
Acetaminophen [Tylenol] 650 mg PO Q4HPRN PRN
Bisacodyl [Dulcolax] 10 mg RECTAL [id number] PRN
Docusate W/Senna [Senokot-S] 1 tablet PO BIDPRN PRN
Ondansetron Injectable [Zofran] 4 mg IV Q8HPRN PRN
Polyethylene Glycol Powder [Miralax] 17 grams PO DAILYPRN PRN
VANCOMYCIN Pharmacy to Dose [VANCOCIN Pharmacy to Dose] 1 each Pharmacy To Prepare [Call Pharmacy To Prepare] 0 ml IV PER PROTOCOL
03/25/25 03:09
Echo 2D MMode Color/Doppler Routine
Reason for Study: SOB
Activity As Directed
Activity Level: Out of Bed-Early Mobility
Pneumatic Compression Sleeves As Directed
Type: Knee high
Vital Signs As Directed
Frequency: Per unit guidelines
Weight As Directed
Frequency: Daily
O2 Therapy [RESP] Routine
Titrate/Wean O2 to maintain O2 sat greater than (%): 90
DX Deep Vein Thrombosis Video Routine
03/25/25 04:29
Complete Blood Count/With Diff IN AM
Comprehensive Metabolic Panel IN AM
TSH IN AM
03/25/25 08:00
Fluoxetine HCl [Prozac] 40 mg PO DAILY
Furosemide [Lasix] 40 mg IV DAILY
Metoprolol Xl [Toprol Xl] 50 mg PO DAILY
Piperacillin/Tazo 2.25 Gram [Zosyn] 2.25 grams in 50 ml IV Q6H
03/25/25 Lunch
Cholesterol Lowering
At Your Request: Limited Participation
Does patient need a safe tray?: No
Cholesterol Lowering: Sodium, 2 Gram
Oral Supplement (If unsure of flavor order apple or vanilla): Ensure Enlive Vanilla
Supplement Frequency: TID
03/25/25 18:00
Atorvastatin [Lipitor] 20 mg PO QPM
Abnormal Lab Results
03/24/25
22:10
WBC 17.4 H 10^3/uL
(4.8-10.8)
RBC 3.20 L 10^6/uL
(4.20-5.40)
Hgb 9.5 L g/dL
(12.0-16.0)
Hct 28.6 L %
(37.0-47.0)
RDW 15.0 H %
(11.5-14.5)
Abs Immat Gran (auto) 0.1 H 10^3/uL
(0-0.05)
Absolute Neuts (auto) 13.5 H 10^3/uL
(1.4-6.5)
Absolute Monos (auto) 1.4 H 10^3/uL
(0.1-0.6)
Neutrophils % 78.0 H %
(42.2-75.2)
Lymphocytes % 12.3 L %
(20.5-51.1)
Chloride 110 H mmol/L
(98-107)
BUN 20 H mg/dl
(7-17)
Creatinine 1.5 H mg/dL
(0.6-1.0)
Glucose 183 H mg/dl
(70-99)
Alkaline Phosphatase 352 H U/L
(38-126)
Albumin 3.2 L g/dl
(3.5-5.0)
Ur Occult Blood Reflex 4+ A
(Negative)
Leukocyte Esterase Rfl 2+ A
(Negative)
Urine RBC >100 A /HPF
(0-2)
Urine WBC (Reflex) 30-40 A /HPF
(0-5)
Urine Bacteria (Reflex) Moderate A
(Negative)
Urine Albumin (Reflex) 2+ A
(Neg - Trace)
03/24/25 22:10
03/24/25 22:10
Vital Signs
Initial and Last Documented VS:
Initial Vital Signs
Temp Pulse Resp Pulse Ox
102.6 F H 135 20 86
03/24/25 21:55 03/24/25 21:55 03/24/25 21:55 03/24/25 21:55
Last Documented Vital Signs
Temp Pulse Resp BP Pulse Ox
97.7 F 98 18 157/78 96
03/25/25 23:51 03/25/25 23:51 03/25/25 23:51 03/25/25 23:51 03/25/25 23:51
*Radiology
Radiology exam reviewed: radiology read reviewed
*Pulse Oximetry
SaO2: 97
Nasal Cannula flow liters per minute: 4
Oxygen Mode of Delivery: Room air
Patient hypoxic: yes (Patient initially hypoxic on room air but currently not hypoxic at 97% on 4 L)
*EKG
Interpretation: abnormal
Heart Rate: 124
Rate: tachycardiac
Rhythm: a-fib
Ischemia: non-specific ST changes
*Rn Occupational Interpretation
Rate: tachycardiac
Interpretation: abnormal
Heart Rate: 122
Rhythm: a-fib
*Critical Care Note
Total Time (30-74mins, 75-104mins- exclusive of procedures): 41 (Critical care statement: A total of 41 minutes of critical care time was provided for this patient. This time is separate from time utilized to perform the aforementioned documented
procedures. Aggregate critical care time includes only time during which I was engaged in work directl)
ED Attending Note
-
Portions of this chart may have been created with voice recognition software.� Occasional wrong word or��sound alike� substitutions may have occurred due to the inherent limitations of voice recognition software.
Discharge Plan
Departure
Patient Disposition: Admit
Date of Disposition: 03/25/25
Time of Disposition: 01:43
Admit to: ICU
Presentation/result/management discussed w/ accepting MD/DO: Hospitalist
Discharge Problem:
Urosepsis, Chronic diastolic (congestive) heart failure, Chronic kidney disease, stage 3b, Sepsis
Interventions
Interventions:
*General Assessment Last Done: 03/24/25 22:32
*Neglect/Abuse Screening Last Done: 03/24/25 22:32
*ED- Fall Risk Assessment Last Done: 03/24/25 22:32
*ED COVID-19 Vaccine History Last Done: 03/24/25 22:32
*Nursing Disposition Last Done: 03/25/25 03:03
ED- Cardiac Assessment Last Done: 03/24/25 22:31
ED- Pulmonary Assessment Last Done: 03/24/25 22:31
Discharge Date and Time
Discharge Date/Time: 03/25/25 03:04
[2025-03-25] MEDS: OFIRMEV 100 IV (01:22)
[2025-03-25] MEDS: NSS 1000 IV (01:23)
[2025-03-25] MEDS: ZOSYN 100 IV (01:48)
[2025-03-25] MEDS: VANCOCIN 540 MG IV (02:08)
[2025-03-25] MEDS: CARDIZEM 5 MG IV (02:18)
--- NOTE | 2025-03-25 02:18 | HPS.HSE ---
Family Physician
-
Family Physician: Maren Conner
Chief Complaint
-
SOB
History of Present Illness
80yo F with PMHx of diastolic CHF, Afib not on AC 2/2 Hx of falls and ICH as per cardiology note, HLD, vaginal bleeding, anxiety/depression, Hx of celiac and SMA stenosis s/o stent came from home with worsening SOB. SHe mentioned that it has started
during her recent admission for UTI with bacteremia and ureteral stone. Patient was discharged on oral Cipro on 03/22/25 from
Medical History
Past Medical History
Past Medical History: Reports Other
Additional Past Medical History:
see HPI
Past Surgical History: Reports Other
Additional Past Surgical History:
See HPI
Social History
Tobacco: Non-smoker
Alcohol: None
Drug: None
Family History
Family History: Not pertinent
Allergies / Home Medications
Allergies reflects when Allergies were last updated in [facility].
Home Medications with original date entered in [facility]
Allergy/Medication List:
Allergies
Allergy/AdvReac Type Severity Reaction Status Date / Time
No Known Allergies Allergy Verified 11/27/24 11:14
Home Medications
atorvastatin 20 mg tablet 20 mg PO QPM High cholesterol 12/28/21
fluoxetine 40 mg capsule 40 mg PO DAILY Mental Health/Anxiety 11/27/24
metoprolol succinate 50 mg tablet,extended release 24 hr (Toprol XL) 50 mg PO DAILY Blood Pressure 11/27/24
therapeutic multivitamin 1 tab PO DAILY Supplement 03/15/25
ciprofloxacin HCl 500 mg tablet (Cipro) 500 mg PO DAILY #14 tabs 03/22/25
Review of Systems
-
History Source: Patient
A 12 point ROS was completed and negative except as noted: Yes
Respiratory: Reports See HPI
Physical Exam
Vital Signs
Vital Signs
Temp Pulse Resp BP Pulse Ox
100.8 F H 121 20 102/80 96
03/25/25 01:20 03/25/25 02:07 03/25/25 02:07 03/25/25 02:07 03/25/25 02:07
Physical Exam
General: Comfortable, Conversant and Respiratory Distress
HEENT: Anicteric, Moist mucous membranes and Atraumatic
Respiratory: No Wheezes or Rhonchi
Cardiac: S1/S2, Irregular Rhythm and Tachycardia
GI: Soft, Non Tender and Non Distended
Musculoskeletal: No Clubbing, No Cyanosis, Edema, Left Lower Extremity and Edema, Right Lower Extremity
Neuro: Awake, Alert, Oriented and AO x 3
Psych: Calm
Laboratory Results
-
03/24/25 22:10
03/24/25 22:10
Laboratory Results
Lactic Acid 1.4 mmol/L (0.7-2.0) 03/24/25 22:10
Total Bilirubin 0.9 mg/dl (0.2-1.3) 03/24/25 22:10
AST 29 U/L (14-36) 03/24/25 22:10
ALT 18 U/L (0-35) 03/24/25 22:10
Alkaline Phosphatase 352 U/L (38-126) H 03/24/25 22:10
Data Reviewed
-
Diagnostic Radiology: Report Reviewed by me
Lab Data: Labs Reviewed by me
Impression/Plan
-
A/P:
#Sepsis, possible relapsing UTI vs possible pneumonia (less likely)
CT abd/pelvis w/o contrast
Urology consult
Broad spectrum Abx
Patient without cough and without sputum production
Bcx
COVID-19 neg
#Afib, permanent with RVR
#Acute on chronic HFpEF exacerbation with acute hypoxic insufficiency
Card consult
Rate control - start with Cardizem push
Lasix, Echo, daily weight, follow electrolytes, check proBNP
telemetry
#Chronic anemia
follow CBC
#CKD stage 3b
follow Cr
#Chronic elevation of alk.phos
at least since 2021
outpatient follow up with PCP
DVT ppx on SCDs (with Hx of ICH, bleeding)
DNR/DNI - confirmed with lucero latif the presence of [employer]
I Have spent at least 79min admitting the patient
--- NOTE | 2025-03-25 03:24 | PTCARENOTE ---
Addendum entered by Yael Orellana RN 03/25/25 04:11:
2 RN skin check done; refer to worklist. Left heel has stage 1(non-blanchable redness), right heel is intact with blanchable redness present. Sacrum is pink, blanchable and intact. Turns and repositioning provided q2 hours.
Original Note:
Patient arrived into room 3349 with ED RN. Patient with slow speech and aphasia- baseline per report. Denies any pain. CHG done; pt turned, heels floated using pillows. Afib 90-120s on telemetry. IV vanco infusing. 3L NC 98-99%. Audible expiratory
wheeze anteriorly, diminished posteriorly with crackles present at bases. Purewick placed for accurate output measurement. Oriented to room and use of call gonzalez. Call gonzalez within reach. Bed alarm set for safety.
[2025-03-25 05:07] LABS: Hematocrit 25.2 % (37.0-47.0); Hemoglobin 8.3 g/dL (12.0-16.0); Mean Corp Hgb Conc. 32.9 g/dL (33.0-37.0); Mean Corpuscular Volume 91.6 fL (81.0-99.0); Nucleated Red Blood Cells % 0 %; Platelet Count 332 10^3/uL (130-400); Red Cell Dist. Width 15.3 % (11.5-14.5)
[2025-03-25 05:36] LABS: ALT (SGPT) 15 U/L (0-35); AST (SGOT) 26 U/L (14-36); Albumin 2.7 g/dl (3.5-5.0); Alkaline Phosphatase 277 U/L (38-126); Blood Urea Nitrogen 19 mg/dl (7-17); Calcium 8.3 mg/dl (8.4-10.2); Carbon Dioxide 24 mmol/L (22-30); Chloride 113 mmol/L (98-107); Estimated Creatinine Clearance 28 ml/min; Glucose 110 mg/dl (70-99); Potassium 3.6 mmol/L (3.5-5.1); Sodium 141 mmol/L (135-145); Total Protein 5.7 g/dl (6.3-8.2); eGFR 34.58
[2025-03-25 06:25] LABS: TSH 0.86 uIU/ml (0.47-4.68)
--- NOTE | 2025-03-25 07:27 | CON.MD ---
Consultation - Medical
-
see dictated note
pt taken to OR by dr williamson for obstructing stones/urosepsis about 10 days ago
stent placed on left side
no ucx- but blood cx's were + for proteus
pt was discharged on antibx course with instructions for outpt f/u to discuss definitive stone management
readmitted last night with primary c/o of SOB
wbc and cr elevated- no fevers and HD stable overnight
UA + as expected with stent
CT- final read pending- stent appears to be in adequate position with no sig hydro/ mild bladder distension/ + pleural effusions
plan
check cx's
place max
await final CT read
Consultation
-
Date/Time Consultation Requested: 03/25/25 at 1am
Date/Time Consultation Performed: 03/25/25 at 7am
Requesting Provider: Dr Bell
Performing Provider: Dr Tang
Reason for Consultation: s/p ureteroscopy for stone- admitted with SOB
--- NOTE | 2025-03-25 07:29 | CON.CAR ---
Addendum entered and electronically signed by Trey Irby DO 03/25/25 10:41:
I saw and examined the patient.
The Reading Assistant's note was reviewed and I agree with the note.
Comment:
Plan:
Remains in perm AFib. Cont Toprol. May need to adjust for better HR control
She is not on anticoagulation due to intracranial hemorrhage November 2024.
Cont IV lasix diuresis as pt recently received a large amt of IVF. Would consider d/c pt on oral lasix once volume status improved.
Check echo. Last EF was preserved.
Patient was not taking JAMIE/ARB/ARNI/aldosterone antagonist prior to admission with known CKD 3B
HPI: Came to last night with increased SOB and LE edema and was admitted with acute HF and possible sepsis, cardiology is now consulted. Patient was just admitted 03/15/2025 until 03/22/2025 with sepsis and pyelonephritis. During that admission
patient received 12.3 L IVF's. Patient has a h/o chronic HFpEF, but was not taking a daily diuretic. Patient lives in her own home, but is essentially bedbound. Patient relies on caregivers arranged and managed by her daughter who lives in [place]. The caregivers come in the morning and get patient out of bed to wheelchair and out to kitchen for meals and then at bedtime caregivers get patient back in bed and then return again in the morning. Caregivers had noted increased LE edema
and conversational dyspnea and so patient's daughter arranged for transfer to the ER for evaluation. Patient reports some symptomatic improvement since admission. Patient denies any chest pain currently.
Original Note:
Consultation
Consultation Request
Date/Time Consultation Requested: 03/25/25 at 0213
Date/Time Consultation Performed: 03/25/25 at 0743
Requesting Provider: Dr. Bell
Performing Provider: Dr. Hu
Reason for Consultation: Acute HF
Medical History
-
History of Present Illness:
Patient came to [facility] ER last night with increased SOB and LE edema and was admitted with acute HF and possible sepsis, cardiology is now consulted. Patient was just admitted 03/15/2025 until 03/22/2025 with sepsis and pyelonephritis. During that
admission patient received 12.3 L IVF's. Patient has a h/o chronic HFpEF, but was not taking a daily diuretic. Patient lives in her own home, but is essentially bedbound. Patient relies on caregivers arranged and managed by her daughter who lives
in [place]. The caregivers come in the morning and get patient out of bed to wheelchair and out to kitchen for meals and then at bedtime caregivers get patient back in bed and then return again in the morning. Caregivers had noted increased
LE edema and conversational dyspnea and so patient's daughter arranged for transfer to the ER for evaluation. Patient reports some symptomatic improvement since admission. Patient denies any chest pain currently.
PMH:
Chronic HFpEF
CKD 3b
Permanent Afib
Not chronically on OAC due to previous small volume acute hemorrhage in the left lateral ventricle on CT head 11/27/24
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
Labile HTN
Hyperlipidemia
Past Medical History
Past Medical History: Other (in HPI)
Past Surgical History: Cardiac (PCI) and Other (temporal artery biopsy)
Social History
Tobacco: Former Smoker
Alcohol: Occasional
Drug: None
Living: Alone
Employment: Retired
Family History
Family History: Hypertension
Allergies / Home Medications
Allergy/AdvReac Type Severity Reaction Status Date / Time
No Known Allergies Allergy Verified 11/27/24 11:14
�Medication �Instructions �Recorded �Confirmed �Type
atorvastatin 20 mg tablet 20 mg PO QPM High cholesterol 12/28/21 03/24/25 History
fluoxetine 40 mg capsule 40 mg PO DAILY Mental 11/27/24 03/24/25 History
Health/Anxiety
metoprolol succinate 50 mg 50 mg PO DAILY Blood Pressure 11/27/24 03/24/25 History
tablet,extended release 24 hr
(Toprol XL)
therapeutic multivitamin 1 tab PO DAILY Supplement 03/15/25 03/24/25 History
ciprofloxacin HCl 500 mg tablet 500 mg PO DAILY #14 tabs 03/22/25 03/24/25 Rx
(Cipro)
Review of Systems
-
History Source: Patient and Family (daughter, Radha, by phone)
All other systems: Negative unless noted
Physical Exam
Vital Signs
Temp Pulse Resp BP Pulse Ox
98.2 F 102 13 111/76 99
03/25/25 03:19 03/25/25 06:00 03/25/25 06:00 03/25/25 06:00 03/25/25 06:00
GEN: NAD. AAOx3
HEENT: EOMI
LUNGS: 3 L NC. Coarse BS throughout
CV: Afib on tele. Irreg irreg, S1/S2, no murmur
ABD: soft, BS+, NT, ND
EXT: Trace B/L LE edema
NEURO: Gross non-focal
SKIN: No rash
Lab Results
03/25/25 04:29
03/25/25 04:29
Grd-Q-[id number] Pept 70491 pg/ml 03/24/25 22:10
Impression / Plan
-
PCP: Maren Conner [employer]
Primary cordwainer is Dr. Robert Hu
Impression:
Admitted with acute HF and possible sepsis 03/24/25
Recent admission for sepsis and pyelonephritis 03/15/25 until 03/22/25
Sepsis
Possible UTI
Acute on chronic HFpEF
CKD 3b
Permanent Afib
Not chronically on OAC due to previous small volume acute hemorrhage in the left lateral ventricle on CT head 11/27/24
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
Labile HTN
Hyperlipidemia
Echo 04/11/2023: EF 55 to 60%, normal RV size and function, mild MR, mild TR
Echo 03/25/2025: Report pending
Plan:
-Patient came to [facility] ER last night with increased SOB and LE edema and was admitted with acute HF and possible sepsis, cardiology is now consulted. Patient was just admitted 03/15/2025 until 03/22/2025 with sepsis and pyelonephritis. During that
admission patient received 12.3 L IVF's. Patient has a h/o chronic HFpEF, but was not taking a daily diuretic. Patient lives in her own home, but is essentially bedbound. Patient relies on caregivers arranged and managed by her daughter who lives
in [place]. The caregivers come in the morning and get patient out of bed to wheelchair and out to kitchen for meals and then at bedtime caregivers get patient back in bed and then return again in the morning. Caregivers had noted increased
LE edema and conversational dyspnea and so patient's daughter arranged for transfer to the ER for evaluation. Patient reports some symptomatic improvement since admission. Patient denies any chest pain currently.
-ECG reviewed by me shows A-fib with RVR
-Patient with acute HF, proBNP 11,700. Patient received 12.3 L IVF's during her admission for sepsis and pyelonephritis last week.
-Agree with Lasix 40 mg IV daily. Patient was not taking a diuretic prior to admission.
-EF was preserved at 55 to 60% by last echo 04/11/2023. Repeat echo pending
-Outpatient dose of Toprol XL 50 mg daily has been continued
-Patient was not taking JAMIE/ARB/ARNI/aldosterone antagonist prior to admission with known CKD 3B
-We will not start SGLT2 inhibitor due to UTI, and possible recurrent UTI and sepsis.
-Patient with known permanent A-fib. HR was 124 on admission in the setting of sepsis and acute HF. HR improved to less than 100 most of the time on my review of telemetry now. Recheck ECG and reevaluate QTc, order placed by me
-Patient is no longer on OAC due to intracranial hemorrhage seen on CT head 11/27/2024.
[2025-03-25] MEDS: ZOSYN 50 IV ×3 (08:12→23:12)
[2025-03-25] MEDS: TOPROL XL 50 MG PO (08:13)
[2025-03-25] MEDS: PROZAC 40 MG PO (08:13)
[2025-03-25] MEDS: LASIX 40 MG IV (08:13)
--- NOTE | 2025-03-25 08:26 | PHA.VAN.IN ---
Assessment
- Assessment
Renal Function: Appears similar to baseline
Plan
- Plan
Initial / Loading Dose: 2000mg - 03/25 02:08
Maintenance Regimen: dosing by level
Monitoring: random 03/26 06
Pharmacokinetics Vancomycin I
- -
Patient Age: 80
Patient Sex: Female
Vancomycin Day #: 1
Indication: Other
Requesting Provider: Dr. Bell
Pertinent Antimicrobial Allergies:
NKDA
Height / Weight:
Height 5 ft 4 in
Actual Weight 72.9 kg
Pertinent Past Medical History: CKD
- Vital Signs / Lab Results
Temp Pulse Resp BP Pulse Ox
97.6 F 98 13 107/59 99
03/25/25 07:46 03/25/25 08:13 03/25/25 06:00 03/25/25 08:13 03/25/25 06:00
Lab Results - Hematology
03/24/25 03/25/25
22:10 04:29
WBC 17.4 H 13.3 H
Lab Results - Chemistry
03/24/25 03/25/25
22:10 04:29
BUN 20 H 19 H
Creatinine 1.5 H 1.5 H
Estimated Creat Clear 26 28
Albumin 3.2 L 2.7 L
03/24/25
22:10
Lactic Acid 1.4
Lab Results - Urine
03/24/25
22:10
Urine Nitrite (Reflex) Negative
Leukocyte Esterase Rfl 2+ A
Urine WBC (Reflex) 30-40 A
Ur Squamous Epith Cells 0-2
Urine Bacteria (Reflex) Moderate A
Microbiology Results
03/24/25 22:10 Influenza Types A & B (RDIGE) - Final
Nasal Swab Negative for Influenza A & B, NAAT
Negative results must be combined with clinical observations
and patient history.
Nucleic Acid Amplification test (NAAT)performed on the
[employer] platform.
--- NOTE | 2025-03-25 12:04 | CARDSERVLU ---
Echocardiogram with Lumason completed after protocol screening completed. Allergies verified.
Patent IV site: __R hand___
IV site flushed with 0.9% NaCl pre and post administration.
Diluted bolus method utilized to enhance visualization of ventricular mack.
Total volume given: __1.5__ mL
Patient tolerated all procedures well without complications.
[2025-03-25] MEDS: TYLENOL 650 MG PO ×2 (13:30→20:15)
--- NOTE | 2025-03-25 14:02 | W.PN.UPDATE ---
Update Note
Progress Note Update
Recent h/o proteus bacteremia and urosepsis
Obstructing left ureteral stones s/p cystoscopy + left stent placement (03/15)
CT imaging => well-positioned left ureteral stent w/o hydronephrosis or renal abscess
Patient originally scheduled next week for outpatient preop visit to schedule definitive ULS to clear stone burden.
Due to need for private ambulance transportation and associated challenges, daughter requested if ULS could be performed this admission.
Plan:
- Continue IV antibiotics pending UCx/BCx
- Cardiology clearance requested - ECHO pending
- NPO@WA Thurs
- To OR 03/27 for left ULS
D/w daughter and Dr. Sahu.
--- NOTE | 2025-03-25 15:25 | W.PN.UPDATE ---
Update Note
Progress Note Update
Non-billable note
1. Acute hypoxic resp failure / Diastolic HF exacerbation - iatrogenic volume overload related from previous hospitalization. Repeat echocardiogram pending, previous echocardiogram showing preserved EF. Patient on IV Lasix 40 mg daily. Not on any
home Lasix. Cardiology following and help appreciated.
2. Permanent atrial fibrillation with rapid ventricular rate -patient maintained on Toprol for rate control. Not on anticoagulation due to history of intracranial hemorrhage earlier this year.
3. Recent Proteus bacteremia/pyelonephritis, obstructing left ureteral stone status post stenting -urology involved in care. UA showing some pyuria bacteria although no clear sign of suggestive of overt UTI. Currently on Zosyn. On daughter
request Case discussed with patient primary urologist who is planning to take patient to the OR on Sunday for definitive treatment of stone. Patient will require cardiology clearance for this.
Daughter updated.
--- NOTE | 2025-03-25 16:27 | CM ---
Patient with Hx pyelonephritis, left ureteral stone s/p stent with Dx Acute hypoxic resp failure / HF. O2 3L. Receiving IV Lasix, IV Abx.
Spoke with patient's daughter AMELIA Garcia;
the patient resides alone in a 2 story home with 7 steps to enter and first floor bedroom/bath.
She sleeps in a hospital bed, & is assisted in ADLs by her private caregivers 8 hours/day 7 days a week.
The patient is ambulatory using her RW, and utilizes her w/c when out.
She had a fall in Nov of this year.
DME - hospital bed. RW, SPC, w/c, shower chair
Current with [facility]
PCP - Maren Conner
Pharmacy - [facility]
Message to Dr Sahu requesting PT Eval.
Plan watch for home O2 needs.
Plan follow up after seen by PT.
[2025-03-25] MEDS: LIPITOR 20 MG PO (17:33)
--- NOTE | 2025-03-25 17:42 | PTCARENOTE ---
Pt transferred from U this afternoon. pt is AAO*3, Vss, 3L 02. pt oriented to the room. call gonzalez within the reach.
[2025-03-25] MEDS: ZOSYN IV ×2 (21:23→23:07)
[2025-03-26] MEDS: OFIRMEV 100 IV (00:19)
[2025-03-26 03:48] VITALS: BP 154/62
[2025-03-26] MEDS: ZOSYN 50 IV ×2 (05:31→12:13)
[2025-03-26 06:00] VITALS: BMI 25.8
[2025-03-26 06:52] LABS: Hematocrit 25.7 % (37.0-47.0); Hemoglobin 8.3 g/dL (12.0-16.0); Mean Corp Hgb Conc. 32.3 g/dL (33.0-37.0); Mean Corpuscular Volume 92.4 fL (81.0-99.0); Platelet Count 345 10^3/uL (130-400); Red Cell Dist. Width 15.0 % (11.5-14.5)
[2025-03-26 07:13] LABS: Blood Urea Nitrogen 22 mg/dl (7-17); Calcium 8.8 mg/dl (8.4-10.2); Carbon Dioxide 26 mmol/L (22-30); Chloride 112 mmol/L (98-107); Estimated Creatinine Clearance 23 ml/min; Glucose 88 mg/dl (70-99); Potassium 3.5 mmol/L (3.5-5.1); Sodium 143 mmol/L (135-145); eGFR 32.00
[2025-03-26 07:54] VITALS: BP 116/79
[2025-03-26] MEDS: LASIX 40 MG IV (08:15)
[2025-03-26] MEDS: TOPROL XL 50 MG PO (08:16)
[2025-03-26] MEDS: PROZAC 40 MG PO (08:16)
--- NOTE | 2025-03-26 09:18 | PHA.VAN.FU ---
Vancomycin Assessment / Plan
- Assessment
Renal Function: Stable
WBC's are: Stable
In the past 24 hrs, patient has been: Afebrile
Concomitant Antimicrobials: piperacillin/tazobactam
- Assessment - Therapeutic Drug Monitoring
Random Level: 17.4 - drawn ~28.5H after 2g loading dose
- Dosing Plan
Dosing by Level: Re-dose today (Vanc 750mg)
- Monitoring Plan
Random Level: 03/27 06
- Follow Up
Pharmacy will continue to follow.
Vancomycin Follow UP
- -
Patient Age: 80
Patient Sex: Female
Vancomycin Day #: 2
Indication: Other
Requesting Provider: Dr. Bell
Pertinent Antimicrobial Allergies:
NKDA
Height / Weight:
Height 5 ft 4 in
Actual Weight 68.209 kg
Pertinent Past Medical History: CKD
- Vital Signs / Lab Results
Temp Pulse Resp BP Pulse Ox
97.8 F 65 14 116/79 97
03/26/25 07:54 03/26/25 08:16 03/26/25 07:54 03/26/25 08:16 03/26/25 07:54
Lab Results - Hematology
03/24/25 03/25/25 03/26/25
22:10 04:29 06:31
WBC 17.4 H 13.3 H 12.8 H
Lab Results - Chemistry
03/24/25 03/25/25 03/26/25
22:10 04:29 06:31
BUN 20 H 19 H 22 H
Creatinine 1.5 H 1.5 H 1.6 H
Estimated Creat Clear 26 28 23
Albumin 3.2 L 2.7 L
03/24/25
22:10
Lactic Acid 1.4
Microbiology Results
03/25/25 01:45 Blood Culture - Preliminary
Blood/Venous No Growth in 24 hours- Final report to follow
03/25/25 01:31 Blood Culture - Preliminary
Blood/Venous No Growth in 24 hours- Final report to follow
03/24/25 22:10 Influenza Types A & B (RIDGE) - Final
Nasal Swab Negative for Influenza A & B, NAAT
Negative results must be combined with clinical observations
and patient history.
Nucleic Acid Amplification test (NAAT)performed on the
[employer] platform.
Therapeutic Drug Monitoring
Random Vancomycin 17.4 ug/ml 03/26/25 06:31
[2025-03-26 11:42] VITALS: BP 142/93
[2025-03-26] MEDS: VANCOCIN 150 IV (12:57)
[2025-03-26] MEDS: TYLENOL 650 MG PO ×3 (12:57→21:23)
--- NOTE | 2025-03-26 14:22 | W.PN.CARDCBS ---
Addendum entered and electronically signed by Heron Siddiqui MD 03/26/25 16:50:
80-year-old woman with permanent atrial fibrillation admitted with acute HFpEF after hospitalization March 15 through March 22 for sepsis and pyelonephritis
PMH: HFpEF, CKD 3B, permanent atrial fibrillation, not anticoagulated related to cerebral hemorrhage November 2024, remote splenic infarct, hypertension and hyperlipidemia, Celiac artery stenosis, occlusion of SMA, hypertension, history of tobacco
abuse, mild to moderate mitral regurgitation, ADL dysfunction
Current medications: Atorvastatin 20 mg a day metoprolol ER 50 mg a day, Prozac 40 mg a day, furosemide 40 mg IV daily, Unasyn, metoprolol ER 25 mg daily
141/55, pulse 110, resp rate 18, sats 98%, afebrile, weight is 68.2 kg if accurate down 4.7 kg from yesterday, discharge weight was 76.7 kg on March 22, on admission weight was 67.1 kg and in November was 60.4 kg clear, unremarkable, lungs are clear,
regular rate and rhythm soft systolic murmur JVD okay not much edema
White count 12.8, hemoglobin 8.3, was 9.5, BUN and creatinine are 22 and 1.6, baseline is 1.3-1.4, DANITZA during recent admission with peak creatinine 3.4
Ultrasound of leg negative
Chest x-ray with effusions
Echo: EF 60% small ventricle mild LVH, MAC, mild to moderate mitral regurgitation, dilated left atrium, aortic sclerosis with trace AI, pulmonary artery pressure 35 mmHg
proBNP 11,700
ECG A-fib, cannot exclude septal TX, nonspecific ST and T changes
Impression: As below per Alena Troncoso.
Plan:
As below per Alena Troncoso. Reviewed in detail and agree, unless otherwise specified.
Overall she looks markedly improved, and is recovering from acute on chronic HFpEF related to volume resuscitation for urosepsis.
Still on IV furosemide.
Plan is for definitive treatment of her obstructing renal calculus tomorrow.
From a cardiac standpoint she is improved, okay to proceed to the OR at elevated but acceptable cardiac risk.
Continue metoprolol perioperatively. Okay to hold Lasix if needed tomorrow morning. Probably can transition to low-dose oral Lasix within 24 to 48 hours.
We will continue to follow.
Original Note:
Today's Communication / Plan
-
Cont Lasix 40 mg IV daily
Increase Toprol XL to 50 mg AM and 25 mg PM daily
Impression / Plan
-
PCP: Maren Conner [employer]
Primary cruise staff member is Dr. Robert Hu
Impression:
Admitted with acute HF and possible sepsis 03/24/25
Recent admission for sepsis and pyelonephritis 03/15/25 until 03/22/25
Sepsis
Possible UTI
Acute on chronic HFpEF
CKD 3b
Permanent Afib
Not chronically on OAC due to previous small volume acute hemorrhage in the left lateral ventricle on CT head 11/27/24
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
Labile HTN
Hyperlipidemia
Echo 04/11/2023: EF 55 to 60%, normal RV size and function, mild MR, mild TR
Echo 03/25/2025: EF 60%, no WMA, mild concentric LVH, mild to moderate MR, trace aortic regurgitation
Plan:
-Patient was moved from U to overnight and is now being weight on a different bed scale, recorded weights are not accurate, but overall indicate that the patient is diuresing. Patient denies any significant symptomatic improvement however.
-Continue Lasix 40 mg IV daily, patient was not taking a diuretic prior to admission
-Patient received 12.3 L IVF's during her admission for sepsis and pyelonephritis last week.
-Labs reviewed by me 03/26/2025 and Cre up to 1.6. Will follow. Patient has known CKD 3B
-Outpatient dose of Toprol XL 50 mg daily has been continued
-Patient was not taking JAMIE/ARB/ARNI/aldosterone antagonist prior to admission with known CKD 3B
-We will not start SGLT2 inhibitor due to UTI, and possible recurrent UTI and sepsis.
-EF stable and preserved by echo 03/25/2025, report reviewed and outlined above by me.
-Patient with known permanent A-fib. ECG reviewed by me on 03/26/2025 shows ongoing A-fib with HR 100 and QTc 490 ms.
-Overall HR higher and will add additional Toprol XL 25 mg qPM, orders placed by me
-Patient is no longer on OAC due to intracranial hemorrhage seen on CT head 11/27/2024.
-Talked with patient's daughter, Radha, by phone for 4 minutes 44 seconds on 03/26/2025 updating her on the echo results and that the patient can proceed with her planned urologic procedure tomorrow.
-Patient is at a moderately elevated but not prohibitive risk to proceed with planned urologic procedure. Of note patient underwent the same procedure recently without adverse event. Would avoid excessive IVF's.
HPI: Patient came to [facility] ER last night with increased SOB and LE edema and was admitted with acute HF and possible sepsis, cardiology is now consulted. Patient was just admitted 03/15/2025 until 03/22/2025 with sepsis and pyelonephritis. During
that admission patient received 12.3 L IVF's. Patient has a h/o chronic HFpEF, but was not taking a daily diuretic. Patient lives in her own home, but is essentially bedbound. Patient relies on caregivers arranged and managed by her daughter who
lives in [place]. The caregivers come in the morning and get patient out of bed to wheelchair and out to kitchen for meals and then at bedtime caregivers get patient back in bed and then return again in the morning. Caregivers had noted
increased LE edema and conversational dyspnea and so patient's daughter arranged for transfer to the ER for evaluation. Patient reports some symptomatic improvement since admission. Patient denies any chest pain currently.
Progress Note - Gatekeeper
Subjective
Date of Service: March 26, 2025
She doesn't feel any better
Objective
Labs:
03/26/25 06:31
03/26/25 06:31
Labs
Hgb 8.3 g/dL (12.0-16.0) L 03/26/25 06:31
Hct 25.7 % (37.0-47.0) L 03/26/25 06:31
Plt Count 345 10^3/uL (130-400) 03/26/25 06:31
Sodium 143 mmol/L (135-145) 03/26/25 06:31
Potassium 3.5 mmol/L (3.5-5.1) 03/26/25 06:31
BUN 22 mg/dl (7-17) H 03/26/25 06:31
Creatinine 1.6 mg/dL (0.6-1.0) H 03/26/25 06:31
Glucose 88 mg/dl (70-99) 03/26/25 06:31
Vital Signs and I&O:
Vital Signs
Temp Pulse Resp BP Pulse Ox
98.4 F 113 14 142/93 97
03/26/25 11:42 03/26/25 11:42 03/26/25 11:42 03/26/25 11:42 03/26/25 12:25
Vital Signs
Temp Pulse Resp BP Pulse Ox
98.4 F 113 14 142/93 97
03/26/25 11:42 03/26/25 11:42 03/26/25 11:42 03/26/25 11:42 03/26/25 12:25
Intake & Output
03/24/25 03/25/25 03/26/25 03/27/25
06:59 06:59 06:59 06:59
Intake Total 200 / 200
Output Total 2725 / 2725
Balance -2525 / -2525
Physical Exam
Physical Exam
GEN: NAD. AAOx3
LUNGS: 3 L NC. No audible wheeze
CV: Afib on tele.
[2025-03-26 15:11] VITALS: BP 141/55
[2025-03-26] MEDS: LIPITOR 20 MG PO (17:08)
--- NOTE | 2025-03-26 17:15 | W.PN.HOSP.TC ---
Today's Communication/Plan
-
past MN NPO
change abx to unasyn
maintain on IV lasix
f/u cr/weight
Assessment / Plan
Assessment / Plan
1. R/o sepsis
Recent Proteus bacteremia/UTI/Pyelonephritis
- UA showing mixed picture with bacteriuria/hematuria but urine cs remains negative
- CT a/p did not show any acute issues
- was maintained on empiric vanc/zosyn
- remains afebrile, WBC trending down
- In light of need of procedure, would require coverage for asymptomatic bacteriuria and change abx to Unasyn for now
2. Acute diastolic HF
Acute hypoxic resp insufficiency
- repeat echocardiogram reviewed and have preserved EF
- on IV lasix for now
- f/u cr/weight
3. Permanent afib/rvr
- maintain on metoprolol for now
4. CKD stage 3b
- renal function remains stable
5. Renal calculi
Ureteral stent
- Uro planning to take patient to OR tomorrow
- maintain NPO past MN
- Cardiac risk increased but acceptable - see cards note.
6. Chronic elevation of alkaline phos
-monitor
7. H/o ICH
Memory changes
- patient remains minimally communicative
- have problem with memory
DVT ppx on SCDs
DNR/DNI
Anticipated Discharge: > 48 hours
Subjective/Interval History
-
Date of Service: March 26, 2025
mentation better
o2 requirement is stable
remains afebrile
Objective Data
-
Labs:
Laboratory Results
03/26/25
06:31
WBC 12.8 H
Hgb 8.3 L
Hct 25.7 L
Plt Count 345
Sodium 143
Potassium 3.5
Chloride 112 H
Carbon Dioxide 26
BUN 22 H
Creatinine 1.6 H
Glucose 88
Calcium 8.8
Vital Signs:
Vital Signs
Temp Pulse Resp BP Pulse Ox
98.1 F 110 18 141/55 98
03/26/25 15:11 03/26/25 15:11 03/26/25 15:11 03/26/25 15:11 03/26/25 15:11
I&O
03/25/25 03/26/25 03/27/25
06:59 06:59 06:59
Intake Total 200 / 200
Output Total 2725 / 2725
Balance -2525 / -2525
Review of Systems
-
Unable to obtain full review of systems at this time due to: Acuity
Physical Exam
-
General: Negative Cachectic
HEENT: Oxygen (2L NC)
Respiratory: Negative Clear to Auscultation
Cardiac: Irregular Rhythm; Negative Murmur
GI: Soft, Nontender and Nondistended
Neuro: Awake and Alert
[2025-03-26] MEDS: UNASYN IV (17:51)
[2025-03-26 19:52] VITALS: BP 171/79
[2025-03-26] MEDS: TOPROL XL 25 MG PO (20:11)
[2025-03-26 23:22] VITALS: BP 106/60
[2025-03-27] VITALS (13 sets, daily range): BP systolic 94–179; BP diastolic 59–96; BMI 25.5
[2025-03-27] MEDS: UNASYN IV ×2 (06:09→17:56)
[2025-03-27 08:21] LABS: Hematocrit 28.3 % (37.0-47.0); Hemoglobin 9.1 g/dL (12.0-16.0); Mean Corp Hgb Conc. 32.2 g/dL (33.0-37.0); Mean Corpuscular Volume 93.1 fL (81.0-99.0); Platelet Count 451 10^3/uL (130-400); Red Cell Dist. Width 15.0 % (11.5-14.5)
[2025-03-27] MEDS: TOPROL XL 50 MG PO (08:44)
[2025-03-27] MEDS: PROZAC 40 MG PO (08:44)
[2025-03-27 08:57] LABS: Blood Urea Nitrogen 22 mg/dl (7-17); Calcium 8.6 mg/dl (8.4-10.2); Carbon Dioxide 30 mmol/L (22-30); Chloride 108 mmol/L (98-107); Estimated Creatinine Clearance 22 ml/min; Glucose 87 mg/dl (70-99); Potassium 3.6 mmol/L (3.5-5.1); Sodium 143 mmol/L (135-145); eGFR 29.76
[2025-03-27] MEDS: LASIX 40 MG IV (09:01)
--- NOTE | 2025-03-27 09:38 | PN.CDI ---
CDI
- -
CDI:
Physician Documentation Request
Admit Date: 03/25/25 03:05
Dear Doctor Luis Alberto,
Please review the following and provide your response in the progress notes.
Clinical Indicators:
03/25/25 03:24 - Patient Care Note
#...Left heel has stage 1(non-blanchable redness),
#...right heel is intact with blanchable redness present.
Selected Entries
03/25/25
17:39
Pressure injury stage [Present on admission Left Heel] Stage 1
Physician documentation of the type and location of wounds is required for compliant documentation. Based on the above clinical findings and your assessment, please provide the following in your progress note:
Yes, left heel stage 1 pressure injury, POA
No, left heel stage 1 pressure injury
Other (please specify)
1. Location of the ulcer/wound, including laterality.
2. Type (etiology) of ulcer/wound:
- Diabetic ulcer
- Venous stasis ulcer
- Pressure (decubitus) ulcer
- Other (please specify)
3. For a pressure ulcer, please also include the stage* of the ulcer:
- Stage 1 - Skin intact, non-blanchable redness
- Stage 2 - Partial thickness loss of dermis, includes intact or open blister
- Stage 3 - Full thickness tissue not including bone, tendon or muscle
- Stage 4 - Full thickness tissue loss, including exposed bone, tendon or muscle
- Unstageable - Full thickness loss in which the base of the ulcer is covered by slough (yellow, puentes, vargas, green or brown) and/or eschar (puentes, brown or black) in the wound bed.
- Unable to determine
Use of terms such as suspected, likely, concern for, or probable (associated with a specific diagnosis that is being evaluated, monitored, or treated as if it exists) are acceptable and can be coded in the inpatient setting, when documented at the
time of discharge.
Thank you,
Mellisa Duuqe RN BSN CCDS
CDI Specialist
Please contact via tiger text
Please use your independent medical judgment in providing your response.
*Source: National Pressure Ulcer Advisory Panel (NPUAP)
--- NOTE | 2025-03-27 12:21 | W.PN.CARDCBS ---
Addendum entered and electronically signed by Heron Siddiqui MD 03/27/25 17:31:
80-year-old woman with permanent atrial fibrillation admitted with acute HFpEF after hospitalization March 15 through March 22 for sepsis and pyelonephritis
PMH: HFpEF, CKD 3B, permanent atrial fibrillation, not anticoagulated related to cerebral hemorrhage November 2024, remote splenic infarct, hypertension and hyperlipidemia, Celiac artery stenosis, occlusion of SMA, hypertension, history of tobacco
abuse, mild to moderate mitral regurgitation, ADL dysfunction
Current meds: Atorvastatin 20 mg a day, metoprolol ER 50 mg a day fluoxetine 40 mg a day, furosemide 40 mg IV daily,Unasyn, Metoprolol ER 25 mg daily
Patient seen postop, she is resting comfortably at this time., Systolic murmur,
138/81, pulse 111 ounces postop) resp rate 18, afebrile intake and output -1.7 L, weight is 67.3 kg, down 0.9 kg, peak weight March 21 was 78.5 kg, states she is comfortable, systolic murmur at apex, lungs are clear with limited exam abdomen benign
not much edema
Hemoglobin 9.1, was 8.3, white count 16.5, BUN/creatinine 22 and 1.7, creatinine was 1.6 yesterday, peak creatinine was 3.4 on March 16
Impression:
Admitted with acute HF and possible sepsis 03/24/25
Recent admission for sepsis and pyelonephritis 03/15/25 until 03/22/25
Acute on chronic HFpEF
CKD 3b
Permanent Afib
Not chronically on OAC due to previous small volume acute hemorrhage in the left lateral ventricle on CT head 11/27/24
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
Labile HTN
Hyperlipidemia
Plan:
She seems stable following cystoscopy with left URS/stone manipulation/laser lithotripsy with stone extraction and stent exchange 03/27/25
Heart rate with permanent A-fib is slightly elevated, will observe for now, suspect heart rate will drop over 12 to 24 hours
With regards to HFpEF, she is compensated.
Switch to oral furosemide in a.m.
No Farxiga due to urosepsis
No spironolactone at present with CKD, consider as outpatient
We will continue to follow
Original Note:
Today's Communication / Plan
-
urologic procedure today
continue beta jacinda for rate control
change to oral diuretics tomorrow if weight down/stable overnight tonight
Impression / Plan
-
PCP: Maren Conner MEDICAL CARE ADMINISTRATOR
Primary motor polarizer is Dr. Robert Hu
Impression:
Admitted with acute HF and possible sepsis 03/24/25
Recent admission for sepsis and pyelonephritis 03/15/25 until 03/22/25
Sepsis
Possible UTI
Acute on chronic HFpEF
CKD 3b
Permanent Afib
Not chronically on OAC due to previous small volume acute hemorrhage in the left lateral ventricle on CT head 11/27/24
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
Labile HTN
Hyperlipidemia
Echo 04/11/2023: EF 55 to 60%, normal RV size and function, mild MR, mild TR
Echo 03/25/2025: EF 60%, no WMA, mild concentric LVH, mild to moderate MR, trace aortic regurgitation
Plan:
-For urologic procedure today
-Continues to diurese with 2 pound weight loss overnight and weight down 17 pounds since admission.
-Transition to oral diuretics as long as she does not receive significant IV fluids during procedure today
- Creatinine bumped up to 1.7 today 03/27, from 1.5 on admit
-of note, patient was not taking a diuretic prior to admission
-Patient was not taking JAMIE/ARB/ARNI/aldosterone antagonist prior to admission with known CKD 3B
-We will not start SGLT2 inhibitor due to UTI, and possible recurrent UTI and sepsis.
-EF stable and preserved by echo 03/25/2025
-Patient received 12.3 L IVF's during her admission for sepsis and pyelonephritis last week.
-Outpatient dose of Toprol XL 50 mg daily has been continued and Toprol 25 mg added in pm (first dose 03/26) for improved rate control
-Patient with known permanent A-fib. ECG 03/26/2025 shows ongoing A-fib with HR 100 and QTc 490 ms.
-telem reviewed by me: afib 90-120 bpm
-Patient is no longer on OAC due to intracranial hemorrhage seen on CT head 11/27/2024.
-Patient is at a moderately elevated but not prohibitive risk to proceed with planned urologic procedure. Of note patient underwent the same procedure recently without adverse event. Would avoid excessive IVF's.
HPI: Patient came to [facility] ER last night with increased SOB and LE edema and was admitted with acute HF and possible sepsis, cardiology is now consulted. Patient was just admitted 03/15/2025 until 03/22/2025 with sepsis and pyelonephritis. During
that admission patient received 12.3 L IVF's. Patient has a h/o chronic HFpEF, but was not taking a daily diuretic. Patient lives in her own home, but is essentially bedbound. Patient relies on caregivers arranged and managed by her daughter who
lives in [place]. The caregivers come in the morning and get patient out of bed to wheelchair and out to kitchen for meals and then at bedtime caregivers get patient back in bed and then return again in the morning. Caregivers had noted
increased LE edema and conversational dyspnea and so patient's daughter arranged for transfer to the ER for evaluation. Patient reports some symptomatic improvement since admission. Patient denies any chest pain currently.
Progress Note - Cementer Hand
Subjective
Date of Service: March 27, 2025
awaiting urologic procedure
continues to diurese
Objective
Labs:
03/27/25 07:55
03/27/25 07:55
Labs
Hgb 9.1 g/dL (12.0-16.0) L 03/27/25 07:55
Hct 28.3 % (37.0-47.0) L 03/27/25 07:55
Plt Count 451 10^3/uL (130-400) H D 03/27/25 07:55
Sodium 143 mmol/L (135-145) 03/27/25 07:55
Potassium 3.6 mmol/L (3.5-5.1) 03/27/25 07:55
BUN 22 mg/dl (7-17) H 03/27/25 07:55
Creatinine 1.7 mg/dL (0.6-1.0) H 03/27/25 07:55
Glucose 87 mg/dl (70-99) 03/27/25 07:55
Vital Signs and I&O:
Vital Signs
Temp Pulse Resp BP Pulse Ox
98.3 F 89 18 179/74 99
03/27/25 11:25 03/27/25 11:25 03/27/25 11:25 03/27/25 11:25 03/27/25 11:25
Vital Signs
Temp Pulse Resp BP Pulse Ox
98.3 F 89 18 179/74 99
03/27/25 11:25 03/27/25 11:25 03/27/25 11:25 03/27/25 11:25 03/27/25 11:25
Intake & Output
03/25/25 03/26/25 03/27/25 03/28/25
06:59 06:59 06:59 06:59
Intake Total 200 / 200 860 / 860
Output Total 2725 / 2725 2625 / 2625
Balance -2525 / -2525 -1765 / -1765
Physical Exam
Physical Exam
GEN: No distress, awake, Ox3
HEENT: supple, anicteric, mmm
LUNGS: CTA, no wheezes/rales
CV: irreg, irreg
ABD: soft, BS+, NT/ND
EXT: No edema
NEURO: Gross non-focal
SKIN: No rash
--- NOTE | 2025-03-27 12:41 | W.SUR.PREOP ---
Pre-Operative Surgical Note
-
I have examined this patient prior to the performance of the scheduled procedure.
The patient's condition is unchanged from the time of the current History and
Physical and the patient is able to undergo the scheduled procedure.
03/15: s/p emergent left ureteral stent placement for Proteus bacteremia + obstructing ureteral stones (multiple)
To OR for left ULS (including stent exchange)
Surgical consent to be signed in preop
Continue IV antibiotics
D/w Hospitalist and daughter.
--- NOTE | 2025-03-27 13:27 | W.PN.HOSP.TC ---
Today's Communication/Plan
-
maintain abx 24hrs post uro procedure
for uro procedure today
Assessment / Plan
Assessment / Plan
1. R/o sepsis
Recent Proteus bacteremia/UTI/Pyelonephritis
- UA showing mixed picture with bacteriuria/hematuria but urine cs remains negative
- CT a/p did not show any acute issues
- was maintained on empiric vanc/zosyn
- remains afebrile, WBC trending down
- In light of need of procedure, would require coverage for asymptomatic bacteriuria and change abx to Unasyn for now
2. Acute diastolic HF
Acute hypoxic resp insufficiency
- repeat echocardiogram reviewed and have preserved EF
- cr elevated to 1.7 today, currently on IV lasix , monitor
- f/u cr/weight
- Wean off o2 as possible
3. Permanent afib/rvr
- maintain on metoprolol for now
4. CKD stage 3b
- renal function remains stable
5. Renal calculi
Ureteral stent
- Uro planning to take patient to OR today
- Cardiac risk increased but acceptable - see cards note.
6. Chronic elevation of alkaline phos
-monitor
7. H/o ICH
Memory changes
- patient remains minimally communicative
- have problem with memory
DVT ppx on SCDs
DNR/DNI
Anticipated Discharge: 24 - 48 hours
Subjective/Interval History
-
Date of Service: March 27, 2025
No complaints overnight
Mentation better
Patient remains afebrile
Objective Data
-
Labs:
Laboratory Results
03/27/25
07:55
WBC 16.5 H
Hgb 9.1 L
Hct 28.3 L
Plt Count 451 H D
Sodium 143
Potassium 3.6
Chloride 108 H
Carbon Dioxide 30
BUN 22 H
Creatinine 1.7 H
Glucose 87
Calcium 8.6
Vital Signs:
Vital Signs
Temp Pulse Resp BP Pulse Ox
98.3 F 89 18 179/74 99
03/27/25 11:25 03/27/25 11:25 03/27/25 11:25 03/27/25 11:25 03/27/25 11:25
I&O
03/26/25 03/27/25 03/28/25
06:59 06:59 06:59
Intake Total 200 / 200 860 / 860
Output Total 2725 / 2725 2625 / 2625
Balance -2525 / -2525 -1765 / -1765
Review of Systems
-
Respiratory: Reports No Symptoms
Cardiac: Reports No Symptoms
Abdomen/GI: Reports No Symptoms
Physical Exam
-
General: Negative Cachectic
HEENT: Oxygen (2L NC)
Respiratory: Negative Clear to Auscultation
Cardiac: Irregular Rhythm; Negative Murmur
GI: Soft, Nontender and Nondistended
Neuro: Awake, Alert and Oriented
--- NOTE | 2025-03-27 14:25 | W.IMMPOSTOP ---
Surgical Immed Post Op Note
-
Primary Surgeon: Hunter
Pre-op Diagnosis: H/o Proteus bacteremia and urosepsis (03/15/25), obstructing distal left ureteral stones s/p stent placement
Post-op Diagnosis: Same
Procedure Performed: cystoscopy, left URS/stone manipulation/laser lithotripsy/stone extraction/stent exchange
Anesthesia Type: LMA
Specimen / Cultures: Stones for analysis/None
Estimated Blood Loss: Negligible
Drains: 4.7Fr x 22 cm JJ left ureteral stent
Complications: None
Operative Findings:
Chalky yellow stones x3 (measuring up to 8 mm) in distal left ureter - fragmented thoroughly to 1-2 mm fragments and stone dust, basket extraction of all larger stone fragments.
Final KUB and cystoscopy confirming appropriate stent position.
Daughter updated post-op via telephone.
--- NOTE | 2025-03-27 14:56 | W.PN.UPDATE ---
Update Note
Progress Note Update
Discussed plan w/ daughter on phone post-op (AMELIA Garcia).
03/27: s/p left ULS + stent exchange.
- Regular diet
- Continue IV antibiotics periop per Hospitalist (recently completed PO Ciprofloxacin treatment course for Proteus bacteremia 03/15).
- F/U in 2-3 weeks for cysto + stent removal in office
--- NOTE | 2025-03-27 16:09 | PTCARENOTE ---
pt back from OR s/p Left ULS. pt is AAO*2, 3L o2, denies any pain. call gonzalez within the reach. plan of care ongoing.
--- NOTE | 2025-03-27 17:14 | CM ---
Patient s/p sx today. Will review patient progress as it becomes available.
Plan: Case management will continue to follow and assist with discharge planning. Will follow for needs.
[2025-03-27] MEDS: LIPITOR 20 MG PO (17:58)
[2025-03-27] MEDS: TOPROL XL 25 MG PO (18:09)
[2025-03-28 03:00] VITALS: BP 108/65
[2025-03-28] MEDS: UNASYN IV ×2 (04:45→17:05)
[2025-03-28 06:00] VITALS: BMI 24.5
[2025-03-28 06:58] LABS: Hematocrit 27.0 % (37.0-47.0); Hemoglobin 8.9 g/dL (12.0-16.0); Mean Corp Hgb Conc. 33.0 g/dL (33.0-37.0); Mean Corpuscular Volume 90.6 fL (81.0-99.0); Platelet Count 421 10^3/uL (130-400); Red Cell Dist. Width 15.1 % (11.5-14.5)
[2025-03-28 07:22] LABS: Blood Urea Nitrogen 27 mg/dl (7-17); Calcium 8.4 mg/dl (8.4-10.2); Carbon Dioxide 27 mmol/L (22-30); Chloride 106 mmol/L (98-107); Estimated Creatinine Clearance 23 ml/min; Glucose 132 mg/dl (70-99); Potassium 3.8 mmol/L (3.5-5.1); Sodium 141 mmol/L (135-145); eGFR 32.00
[2025-03-28 08:16] VITALS: BP 100/70
[2025-03-28] MEDS: LASIX 40 MG PO (08:40)
[2025-03-28] MEDS: TOPROL XL 50 MG PO (08:40)
[2025-03-28] MEDS: PROZAC 40 MG PO (08:40)
--- NOTE | 2025-03-28 11:13 | W.PN.URO.CBU ---
Today's Communication / Plan
-
- Continue antibiotics for jefferson sens proteus coverage
- WBC increased - suspect post procedural without other signs of worsened infection- continue to trend
- Outpatient follow up with Dr. Harrison for stent removal once stable for discharge
Assessment / Plan
-
80F Proteus bacteremia and L ureteral stone s/p stent placement 03/15
obstructing L ureteral stones
Admitted for SOB/CHF
Now s/p L ureteroscopy, laser lithotripsy, stent exchange 03/27
- Continue antibiotics for jefferson sens proteus coverage
- WBC increased - suspect post procedural without other signs of worsened infection- continue to trend
- Outpatient follow up with Dr. Harrison for stent removal once stable for discharge
Diagnosis
-
Date of Service: March 28, 2025
-
Patient Diagnosis:
Proteus bacteremia and L ureteral stone s/p stent placement 03/15
obstructing L ureteral stones
Post Op Day: L ureteroscopy, laser lithotripsy, stent exchange 03/28
Subjective
-
Feels fatigued
Objective
-
Vital Signs
Temp Pulse Resp BP Pulse Ox
97.8 F 68 18 100/70 98
03/28/25 08:16 03/28/25 08:16 03/28/25 08:16 03/28/25 08:16 03/28/25 08:16
Intake and Output
03/27/25 03/28/25 03/29/25
06:59 06:59 06:59
Intake Total 860 / 860 630 / 630
Output Total 2625 / 2625 1025 / 1025
Balance -1765 / -1765 -395 / -395
Intake:
Oral fluids 360 / 360 480 / 480
IV fluids (Total) 180 / 180 100 / 100
normosol 100 / 100
IV piggybacks 320 / 320 50 / 50
Output:
Urine, Farah 2625 / 2625 1025 / 1025
Other:
Number of approximated MODERATE 2
amounts of urine
How many times incontinent 1
How many times incontinent 1
SATURATED amount urine
Laboratory Results
03/28/25 06:43
03/28/25 06:43
Physical Exam
-
General - well developed, well nourished, no acute distress
Chest - clear
[2025-03-28 11:54] VITALS: BP 116/69
--- NOTE | 2025-03-28 13:48 | W.PN.HOSP.TC ---
Today's Communication/Plan
-
maintain on abx
continue iv diuretics
f/u weight/cr
Assessment / Plan
Assessment / Plan
1. Sepsis - Tachycardia/lukocytosis.
Recent Proteus bacteremia/UTI/Pyelonephritis
- UA showing mixed picture with bacteriuria/hematuria but urine cs remains negative
- CT a/p did not show any acute issues
- was maintained on empiric vanc/zosyn
- remains afebrile, WBC trending down
- In light of need of procedure, would require coverage for asymptomatic bacteriuria and change abx to Unasyn for now
2. Acute diastolic HF
Acute hypoxic resp insufficiency
- repeat echocardiogram reviewed and have preserved EF
- cr elevated to 1.6 today, currently on IV lasix , monitor
- f/u cr/weight
- Wean off o2 as possible
3. Permanent afib/rvr
- maintain on metoprolol for now
4. CKD stage 3b
- renal function remains stable
5. Renal calculi
Ureteral stent
- s/p L ureteroscopy , laser lithotripsy, stent exchange 03/27
- Postoperatively no abdominal pain/hematuria
- Patient have some WBC bump as expected, maintained on empiric antibiotic which will de-escalate
6. Chronic elevation of alkaline phos
-monitor
7. H/o ICH
Memory changes
- patient remains minimally communicative
- have problem with memory
DVT ppx on SCDs
DNR/DNI
Anticipated Discharge: 24 - 48 hours
Subjective/Interval History
-
Date of Service: March 28, 2025
Patient feeling subjectively better
Denies of having any abdominal pain/nausea
Afebrile
Objective Data
-
Labs:
Laboratory Results
03/28/25
06:43
WBC 24.1 H
Hgb 8.9 L
Hct 27.0 L
Plt Count 421 H
Sodium 141
Potassium 3.8
Chloride 106
Carbon Dioxide 27
BUN 27 H
Creatinine 1.6 H
Glucose 132 H
Calcium 8.4
Vital Signs:
Vital Signs
Temp Pulse Resp BP Pulse Ox
98.3 F 90 20 116/69 96
03/28/25 11:54 03/28/25 11:54 03/28/25 11:54 03/28/25 11:54 03/28/25 11:54
I&O
03/27/25 03/28/25 03/29/25
06:59 06:59 06:59
Intake Total 860 / 860 630 / 630
Output Total 2625 / 2625 1025 / 1025
Balance -1765 / -1765 -395 / -395
Review of Systems
-
Respiratory: Reports No Symptoms
Cardiac: Reports No Symptoms
Abdomen/GI: Reports No Symptoms
Physical Exam
-
General: Negative Cachectic
HEENT: Oxygen (2L NC)
Respiratory: Negative Clear to Auscultation
Cardiac: Irregular Rhythm; Negative Murmur
GI: Soft, Nontender and Nondistended
Neuro: Awake, Alert and Oriented
[2025-03-28 15:38] VITALS: BP 118/68
[2025-03-28] MEDS: LIPITOR 20 MG PO (17:05)
--- NOTE | 2025-03-28 19:05 | W.PN.CARDCBS ---
Today's Communication / Plan
-
Continue Lasix 40 mg daily
Trend creatinine and weights
Slight increase in metoprolol
Impression / Plan
-
PCP: Maren Conner DIE ATTACHING MACHINE TENDER
Primary flanging machine operator is Dr. Robert Hu
Impression:
Admitted with acute HF and possible sepsis 03/24/25
Cystoscopy with left URS/stone manipulation/laser lithotripsy with stone extraction and stent exchange 03/27/25
Recent admission for sepsis and pyelonephritis 03/15/25 until 03/22/25
Sepsis
Possible UTI
Acute on chronic HFpEF
CKD 3b
Permanent Afib
Not chronically on OAC due to previous small volume acute hemorrhage in the left lateral ventricle on CT head 11/27/24
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
Labile HTN
Hyperlipidemia
Echo 04/11/2023: EF 55 to 60%, normal RV size and function, mild MR, mild TR
Echo 03/25/2025: EF 60%, no WMA, mild concentric LVH, mild to moderate MR, trace aortic regurgitation
Plan:
Overall doing well following stone manipulation/laser lithotripsy and extraction with stent exchange 03/27/2025
Ventricular response still slightly rapid, metoprolol ER is 50 a.m., 20 5 PM will make 50 mg twice daily
Continue p.o. Lasix 40 mg a day. Creatinine is stable and weight seems to be dropping.
No SGLT2/spironolactone
Not anticoagulated related to RN CVOR hemorrhage, uncertain whether patient should be considered for watchman given comorbidities
HPI: Patient came to [facility] ER last night with increased SOB and LE edema and was admitted with acute HF and possible sepsis, cardiology is now consulted. Patient was just admitted 03/15/2025 until 03/22/2025 with sepsis and pyelonephritis. During
that admission patient received 12.3 L IVF's. Patient has a h/o chronic HFpEF, but was not taking a daily diuretic. Patient lives in her own home, but is essentially bedbound. Patient relies on caregivers arranged and managed by her daughter who
lives in [place]. The caregivers come in the morning and get patient out of bed to wheelchair and out to kitchen for meals and then at bedtime caregivers get patient back in bed and then return again in the morning. Caregivers had noted
increased LE edema and conversational dyspnea and so patient's daughter arranged for transfer to the ER for evaluation. Patient reports some symptomatic improvement since admission. Patient denies any chest pain currently.
Progress Note - Glove Cleaner
Subjective
Date of Service: March 28, 2025:
80-year-old woman with permanent atrial fibrillation admitted with acute HFpEF after hospitalization March 15 through March 22 for sepsis and pyelonephritis
PMH: HFpEF, CKD 3B, permanent atrial fibrillation, not anticoagulated related to cerebral hemorrhage November 2024, remote splenic infarct, hypertension and hyperlipidemia, Celiac artery stenosis, occlusion of SMA, hypertension, history of tobacco
abuse, mild to moderate mitral regurgitation, ADL dysfunction
Current meds: Unasyn, atorvastatin, metoprolol ER 50 mg a.m., 25 mg p.m., Prozac 40 mg a day,, furosemide 40 mg daily by mouth
118/68, pulse 8200, respiratory rate 18, temp is 37, sats of 94%,Weight is 64.5 kg, if accurate down an additional 2.8 kg breathing not bad but states it could be better, lungs are relatively clear, JVD possibly somewhat elevated, not much edema
Telemetry, slightly rapid ventricular response
White count 24, hemoglobin 8.9, stable BUN/creatinine are 27 and 1.6, also stable
Objective
Labs:
03/28/25 06:43
03/28/25 06:43
Labs
Hgb 8.9 g/dL (12.0-16.0) L 03/28/25 06:43
Hct 27.0 % (37.0-47.0) L 03/28/25 06:43
Plt Count 421 10^3/uL (130-400) H 03/28/25 06:43
Sodium 141 mmol/L (135-145) 03/28/25 06:43
Potassium 3.8 mmol/L (3.5-5.1) 03/28/25 06:43
BUN 27 mg/dl (7-17) H 03/28/25 06:43
Creatinine 1.6 mg/dL (0.6-1.0) H 03/28/25 06:43
Glucose 132 mg/dl (70-99) H 03/28/25 06:43
Vital Signs and I&O:
Vital Signs
Temp Pulse Resp BP Pulse Ox
37.0 C 88 18 118/68 94
03/28/25 15:38 03/28/25 15:38 03/28/25 15:38 03/28/25 15:38 03/28/25 16:05
Vital Signs
Temp Pulse Resp BP Pulse Ox
37.0 C 88 18 118/68 94
03/28/25 15:38 03/28/25 15:38 03/28/25 15:38 03/28/25 15:38 03/28/25 16:05
Intake & Output
03/26/25 03/27/25 03/28/25 03/29/25
07:59 07:59 07:59 07:59
Intake Total 200 / 200 860 / 860 630 / 630 480 / 480
Output Total 2725 / 2725 2625 / 2625 1025 / 1025
Balance -2525 / -2525 -1765 / -1765 -395 / -395 480 / 480
Physical Exam
Physical Exam
See above
[2025-03-28 19:18] VITALS: BP 150/69
[2025-03-28] MEDS: TOPROL XL 25 MG PO (19:40)
[2025-03-28 23:06] VITALS: BP 117/72
[2025-03-29] VITALS (7 sets, daily range): BP systolic 98–163; BP diastolic 60–94; PULSE 76; O2SAT 95–97; BMI 24.4
[2025-03-29] MEDS: UNASYN IV ×2 (04:46→17:46)
[2025-03-29 09:12] LABS: Hematocrit 26.6 % (37.0-47.0); Hemoglobin 8.8 g/dL (12.0-16.0); Mean Corp Hgb Conc. 33.1 g/dL (33.0-37.0); Mean Corpuscular Volume 91.1 fL (81.0-99.0); Platelet Count 461 10^3/uL (130-400); Red Cell Dist. Width 15.2 % (11.5-14.5)
[2025-03-29] MEDS: TOPROL XL 50 MG PO (09:26)
[2025-03-29] MEDS: PROZAC 40 MG PO (09:26)
[2025-03-29 09:44] LABS: Blood Urea Nitrogen 32 mg/dl (7-17); Calcium 8.6 mg/dl (8.4-10.2); Carbon Dioxide 28 mmol/L (22-30); Chloride 105 mmol/L (98-107); Estimated Creatinine Clearance 21 ml/min; Glucose 106 mg/dl (70-99); Potassium 3.2 mmol/L (3.5-5.1); Sodium 141 mmol/L (135-145); eGFR 27.78
[2025-03-29] MEDS: LASIX PO (09:53)
[2025-03-29] MEDS: KCL 40 MEQ PO ×2 (09:58→17:18)
--- NOTE | 2025-03-29 12:58 | W.PN.HOSP.TC ---
Today's Communication/Plan
-
hold lasix dose
f/u cr
last day abx today
discharge tomorrow if clinically appropriate.
Assessment / Plan
Assessment / Plan
1. Sepsis - Tachycardia/lukocytosis.
Recent Proteus bacteremia/UTI/Pyelonephritis
- UA showing mixed picture with bacteriuria/hematuria but urine cs remains negative
- CT a/p did not show any acute issues
- was maintained on empiric vanc/zosyn
- remains afebrile, WBC trending down
- In light of need of procedure, would require coverage for asymptomatic bacteriuria and change abx to Unasyn for now
2. Acute diastolic HF
Acute hypoxic resp insufficiency -resolved
- repeat echocardiogram reviewed and have preserved EF
- cr elevated to 1.8 today, f/u renal function - holding lasix dose today.
- f/u cr/weight
- Wean off o2 as possible
3. Permanent afib/rvr
- maintain on metoprolol for now
4. CKD stage 3b
- renal function remains stable
5. Renal calculi
Ureteral stent
- s/p L ureteroscopy , laser lithotripsy, stent exchange 03/27
- Postoperatively no abdominal pain/hematuria
- Patient have some WBC bump as expected, maintained on empiric antibiotic which will de-escalate
6. Chronic elevation of alkaline phos
-monitor
7. H/o ICH
Memory changes
- patient remains minimally communicative
- have problem with memory
DVT ppx on SCDs
DNR/DNI
03/29 care plan discussed with patient daughter and agreeable for home discharge with home med tomorrow patient remains medically appropriate.
Anticipated Discharge: Within 24 hours
Subjective/Interval History
-
Date of Service: March 29, 2025
Patient comfortable in bed
Afebrile overnight
Objective Data
-
Labs:
Laboratory Results
03/29/25
08:57
WBC 17.4 H
Hgb 8.8 L
Hct 26.6 L
Plt Count 461 H
Sodium 141
Potassium 3.2 L
Chloride 105
Carbon Dioxide 28
BUN 32 H
Creatinine 1.8 H
Glucose 106 H
Calcium 8.6
Vital Signs:
Vital Signs
Temp Pulse Resp BP Pulse Ox
97.7 F 76 20 124/84 95
03/29/25 11:20 03/29/25 11:20 03/29/25 11:20 03/29/25 11:20 03/29/25 11:20
I&O
03/28/25 03/29/25 03/30/25
06:59 06:59 06:59
Intake Total 630 / 630 1080 / 1080
Output Total 1025 / 1025
Balance -395 / -395 1080 / 1080
Review of Systems
-
Respiratory: Reports No Symptoms
Cardiac: Reports No Symptoms
Abdomen/GI: Reports No Symptoms
Physical Exam
-
General: Negative Cachectic
HEENT: Oxygen (2L NC)
Respiratory: Negative Clear to Auscultation
Cardiac: Irregular Rhythm; Negative Murmur
GI: Soft, Nontender and Nondistended
Neuro: Awake, Alert and Oriented
--- NOTE | 2025-03-29 14:39 | W.PN.CARDCBS ---
Today's Communication / Plan
-
IV Lasix 40 mg x 1
Supplement potassium
Rate control adequate on current metoprolol
Check proBNP in a.m. and chest x-ray
Impression / Plan
-
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
Primary utility mechanic is Dr. Robert Hu
Impression:
Admitted with acute HF and possible sepsis 03/24/25
Cystoscopy with left URS/stone manipulation/laser lithotripsy with stone extraction and stent exchange 03/27/25
Recent admission for sepsis and pyelonephritis 03/15/25 until 03/22/25
Sepsis
Possible UTI
Acute on chronic HFpEF
CKD 3b
Permanent Afib
Not chronically on OAC due to previous small volume acute hemorrhage in the left lateral ventricle on CT head 11/27/24
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
Labile HTN
Hyperlipidemia
Echo 04/11/2023: EF 55 to 60%, normal RV size and function, mild MR, mild TR
Echo 03/25/2025: EF 60%, no WMA, mild concentric LVH, mild to moderate MR, trace aortic regurgitation
Plan:
Overall doing well following stone manipulation/laser lithotripsy and extraction with stent exchange 03/27/2025
Atrial fibrillation: Rate is fairly well-controlled on metoprolol ER 50 mg a.m. and 25 mg p.m.
However she complains of shortness of breath. Acute HFpEF Seems reasonably controlled on exam, and she initially told me she was comfortable, but daughter who was on speaker phone said that she was complaining of shortness of breath. Will give IV
furosemide 40 mg x 1 and reassess in AM. Creatinine has bumped a bit to 1.8, will need to follow. Potassium is being supplemented was 3.2 today. Current weight is 64.5 kg, and was readmitted on March 24 at 71.7 kg, so she is down 16 to 18 pounds
from admission weight. Will reassess Lasix route of administration and dosage in a.m.
Repeat proBNP and chest x-ray. If proBNP is reasonable, we may need to consider thromboembolic disease. CT scan not a great option given renal function.
Hemoglobin is relatively stable at 8.8.
Not a good candidate for SGLT2 antagonist or spironolactone
HPI: Patient came to [facility] ER last night with increased SOB and LE edema and was admitted with acute HF and possible sepsis, cardiology is now consulted. Patient was just admitted 03/15/2025 until 03/22/2025 with sepsis and pyelonephritis. During
that admission patient received 12.3 L IVF's. Patient has a h/o chronic HFpEF, but was not taking a daily diuretic. Patient lives in her own home, but is essentially bedbound. Patient relies on caregivers arranged and managed by her daughter who
lives in [place]. The caregivers come in the morning and get patient out of bed to wheelchair and out to kitchen for meals and then at bedtime caregivers get patient back in bed and then return again in the morning. Caregivers had noted
increased LE edema and conversational dyspnea and so patient's daughter arranged for transfer to the ER for evaluation. Patient reports some symptomatic improvement since admission. Patient denies any chest pain currently.
Progress Note - Hse Manager
Subjective
Date of Service: March 29, 2025:
80-year-old woman with permanent atrial fibrillation admitted with acute HFpEF after hospitalization March 15 through March 22 for sepsis and pyelonephritis
PMH: HFpEF, CKD 3B, permanent atrial fibrillation, not anticoagulated related to cerebral hemorrhage November 2024, remote splenic infarct, hypertension and hyperlipidemia, Celiac artery stenosis, occlusion of SMA, hypertension, history of tobacco
abuse, mild to moderate mitral regurgitation, ADL dysfunction
Current medications: Unasyn, atorvastatin 20 mg a day, metoprolol succinate 50 mg a day, Prozac, metoprolol ER 50 a.m. and 20 5 PM, furosemide 40 mg a day
124/84, pulse 76, respiratory 20, afebrile, Weight is 64.5 kg unchanged, told me she was doing well, but had told daughter that she was very short of breath minutes before. She appears relatively comfortable, decreased breath sounds in bases,
irregular rate and rhythm but rate is
White count 17.4, had been 24, platelets are 461, potassium is 3.2, BUN/creatinine are 32 and 1.8, creatinine had been 1.61.7, and peaked at 3.4 March 16 reasonably well-controlled., Soft systolic murmur, JVD somewhat elevated, 1+ edema
Objective
Labs:
03/29/25 08:57
03/29/25 08:57
Labs
Hgb 8.8 g/dL (12.0-16.0) L 03/29/25 08:57
Hct 26.6 % (37.0-47.0) L 03/29/25 08:57
Plt Count 461 10^3/uL (130-400) H 03/29/25 08:57
Sodium 141 mmol/L (135-145) 03/29/25 08:57
Potassium 3.2 mmol/L (3.5-5.1) L 03/29/25 08:57
BUN 32 mg/dl (7-17) H 03/29/25 08:57
Creatinine 1.8 mg/dL (0.6-1.0) H 03/29/25 08:57
Glucose 106 mg/dl (70-99) H 03/29/25 08:57
Vital Signs and I&O:
Vital Signs
Temp Pulse Resp BP Pulse Ox
36.5 C 76 20 124/84 95
03/29/25 11:20 03/29/25 11:20 03/29/25 11:20 03/29/25 11:20 03/29/25 11:20
Vital Signs
Temp Pulse Resp BP Pulse Ox
36.5 C 76 20 124/84 95
03/29/25 11:20 03/29/25 11:20 03/29/25 11:20 03/29/25 11:20 03/29/25 11:20
Intake & Output
07/11/25 07/12/25 07/13/25 07/14/25
07:59 07:59 07:59 07:59
Intake Total 860 / 860 630 / 630 1080 / 1080
Output Total 2625 / 2625 1025 / 1025
Balance -1765 / -1765 -395 / -395 1080 / 1080
Physical Exam
Physical Exam
See above
[2025-03-29] MEDS: LASIX 40 MG IV (17:18)
[2025-03-29] MEDS: LIPITOR 20 MG PO (17:19)
[2025-03-29] MEDS: TOPROL XL 25 MG PO (20:05)
[2025-03-30] VITALS (7 sets, daily range): BP systolic 99–164; BP diastolic 71–88; BMI 24.1
[2025-03-30 04:58] LABS: Hematocrit 29.2 % (37.0-47.0); Hemoglobin 9.6 g/dL (12.0-16.0); Mean Corp Hgb Conc. 32.9 g/dL (33.0-37.0); Mean Corpuscular Volume 92.4 fL (81.0-99.0); Platelet Count 486 10^3/uL (130-400); Red Cell Dist. Width 15.2 % (11.5-14.5)
[2025-03-30 05:14] LABS: Blood Urea Nitrogen 33 mg/dl (7-17); Calcium 9.1 mg/dl (8.4-10.2); Carbon Dioxide 30 mmol/L (22-30); Chloride 107 mmol/L (98-107); Estimated Creatinine Clearance 23 ml/min; Glucose 123 mg/dl (70-99); Magnesium 1.8 mg/dl (1.6-2.3); Potassium 4.0 mmol/L (3.5-5.1); Sodium 144 mmol/L (135-145); eGFR 32.00
[2025-03-30] MEDS: UNASYN IV ×2 (05:42→18:02)
[2025-03-30] MEDS: PROZAC 40 MG PO (09:10)
[2025-03-30] MEDS: TOPROL XL 50 MG PO ×3 (09:12→20:55)
--- NOTE | 2025-03-30 09:35 | W.PN.HOSP.TC ---
Today's Communication/Plan
-
Await cardiology recs
setup home/VN
home O2 assessment
Assessment / Plan
Assessment / Plan
Assessment:
Acute on chronic HFpEF
Acute hypoxic respiratory insufficiency
- IV Lasix per Cardiology; requires intensive monitoring of I/Os, weights, lytes
- DCA cards following
- Wean O2: Home O2 eval ordered
Sepsis POA (leukocytosis, tachycardia)
Cystoscopy with left URS/stone manipulation/laser lithotripsy with stone extraction and stent exchange 03/27/25
Recent admission for sepsis and Proteus bacteremia/UTI/Pyelonephritis 03/15/25 until 03/22/25
- Urology following; will need stent removal outpatient
- continue Unasyn, complete 10 day course
CKD 3b
- monitor labs daily
Permanent Afib with RVR
- continue metoprolol
- Not chronically on OAC due to previous small volume acute hemorrhage in the left lateral ventricle on CT head 11/27/24
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
Labile essential HTN
Hyperlipidemia
Chronic elevation of alkaline phos
- monitor
H/o ICH
Memory changes
- patient remains minimally communicative
- have problem with memory
DVT ppx: SCDs
Code: DNR/DNI
Dispo: PT/OT recommends SNF, family opts for home/VN - consult placed.
Anticipated Discharge: 24 - 48 hours
Subjective/Interval History
-
Date of Service: March 30, 2025
less SOB than 24 hours prior but still feels SOB at times
on and off O2
denies CP
Objective Data
-
Labs:
Laboratory Results
03/30/25
04:43
WBC 17.3 H
Hgb 9.6 L
Hct 29.2 L
Plt Count 486 H
Sodium 144
Potassium 4.0
Chloride 107
Carbon Dioxide 30
BUN 33 H
Creatinine 1.6 H
Glucose 123 H
Calcium 9.1
Vital Signs:
Vital Signs
Temp Pulse Resp BP Pulse Ox
98.5 F 76 16 129/78 95
03/30/25 07:22 03/30/25 09:12 03/30/25 07:22 03/30/25 09:12 03/30/25 07:22
I&O
03/29/25 03/30/25 03/31/25
06:59 06:59 06:59
Intake Total 1080 / 1080 720 / 720
Balance 1080 / 1080 720 / 720
Physical Exam
-
General: No Apparent Distress
HEENT: Normocephalic and Atraumatic
Respiratory: Decreased Breath Sounds
Cardiac: Irregular Rhythm
GI: Soft and Nontender
Neuro: AO x 3
Psych: Calm
Data Reviewed
-
Total Time Spent with Patient (in minutes): 41
Labs: Labs Reviewed by me
[2025-03-30] MEDS: LASIX 40 MG IV ×2 (11:46→15:37)
--- NOTE | 2025-03-30 13:45 | CM ---
Addendum entered by RANDEE Murray 03/30/25 13:50:
Medical/PT/OT indication is SNF, however patient declining.
Original Note:
Spoke with attending who stated that patient will most likely be ready for discharge tomorrow. Spoke with Tiffanie in admissions at [facility] who confirmed that she would be able to take patient back upon discharge. Will send resumption of care referral.
Plan: Case management will continue to follow and assist with discharge planning. Home with [facility].
--- NOTE | 2025-03-30 13:56 | W.PN.CARDCBS ---
Today's Communication / Plan
-
Chest x-ray with persistent CHF
Will change to IV Lasix 40 mg twice daily
A-fib poorly controlled at times and will increase Toprol
May need to adding amiodarone if hypotension continues to be an issue
Impression / Plan
-
PCP: Maren Conner BREAKDOWN MAN
Primary double head machine operator is Dr. Robert Hu
Impression:
Admitted with acute HF and possible sepsis 03/24/25
Cystoscopy with left URS/stone manipulation/laser lithotripsy with stone extraction and stent exchange 03/27/25
Recent admission for sepsis and pyelonephritis 03/15/25 until 03/22/25
Sepsis
Possible UTI
Acute on chronic HFpEF
CKD 3b
Permanent Afib
Not chronically on OAC due to previous small volume acute hemorrhage in the left lateral ventricle on CT head 11/27/24
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
Labile HTN
Hyperlipidemia
Echo 04/11/2023: EF 55 to 60%, normal RV size and function, mild MR, mild TR
Echo 03/25/2025: EF 60%, no WMA, mild concentric LVH, mild to moderate MR, trace aortic regurgitation
Plan:
Chest x-ray with persistent CHF
Will treat with IV Lasix 40 mg twice daily
Will need to follow renal function closely
Creatinine 1.6 on 03/30 and was 1.8 on 03/29
Also has rapid heart rate in A-fib at time
We will increase Toprol to 50 mg p.o. twice daily
Given hypotension at times may need to add amiodarone for rate control
Not a good candidate for SGLT2 antagonist or spironolactone
HPI: Patient came to [facility] ER last night with increased SOB and LE edema and was admitted with acute HF and possible sepsis, cardiology is now consulted. Patient was just admitted 03/15/2025 until 03/22/2025 with sepsis and pyelonephritis. During
that admission patient received 12.3 L IVF's. Patient has a h/o chronic HFpEF, but was not taking a daily diuretic. Patient lives in her own home, but is essentially bedbound. Patient relies on caregivers arranged and managed by her daughter who
lives in [place]. The caregivers come in the morning and get patient out of bed to wheelchair and out to kitchen for meals and then at bedtime caregivers get patient back in bed and then return again in the morning. Caregivers had noted
increased LE edema and conversational dyspnea and so patient's daughter arranged for transfer to the ER for evaluation. Patient reports some symptomatic improvement since admission. Patient denies any chest pain currently.
Progress Note - Beauty Operator Apprentice
Subjective
Date of Service: March 30, 2025
No complaints
Objective
Labs:
03/30/25 04:43
03/30/25 04:43
Labs
Hgb 9.6 g/dL (12.0-16.0) L 03/30/25 04:43
Hct 29.2 % (37.0-47.0) L 03/30/25 04:43
Plt Count 486 10^3/uL (130-400) H 03/30/25 04:43
Sodium 144 mmol/L (135-145) 03/30/25 04:43
Potassium 4.0 mmol/L (3.5-5.1) 03/30/25 04:43
BUN 33 mg/dl (7-17) H 03/30/25 04:43
Creatinine 1.6 mg/dL (0.6-1.0) H 03/30/25 04:43
Glucose 123 mg/dl (70-99) H 03/30/25 04:43
Vital Signs and I&O:
Vital Signs
Temp Pulse Resp BP Pulse Ox
98.3 F 100 16 141/78 97
03/30/25 11:28 03/30/25 11:46 03/30/25 11:28 03/30/25 11:46 03/30/25 11:28
Vital Signs
Temp Pulse Resp BP Pulse Ox
98.3 F 100 16 141/78 97
03/30/25 11:28 03/30/25 11:46 03/30/25 11:28 03/30/25 11:46 03/30/25 11:28
Intake & Output
03/28/25 03/29/25 03/30/25 03/31/25
06:59 06:59 06:59 06:59
Intake Total 630 / 630 1080 / 1080 720 / 720
Output Total 1025 / 1025
Balance -395 / -395 1080 / 1080 720 / 720
Physical Exam
Physical Exam
General: Well developed, well nourished in NAD.
Neck: Supple, no JVD, HJR, carotids +2 B/L, no bruits bilaterally.
Heart: Non displaced PMI, irregular, no murmurs, No S3, S4, no rubs.
Lungs: Scattered rhonchi
Extremities: No clubbing, cyanosis or edema bilaterally.
Neuro: Grossly nonfocal, awake, alert and oriented x3.
[2025-03-30] MEDS: LIPITOR 20 MG PO (18:02)
[2025-03-31] VITALS (9 sets, daily range): BP systolic 121–171; BP diastolic 70–87; PULSE 76–78; O2SAT 95–98; BMI 22.9
[2025-03-31] MEDS: UNASYN IV ×2 (06:12→16:41)
[2025-03-31 07:59] LABS: Hematocrit 31.6 % (37.0-47.0); Hemoglobin 10.0 g/dL (12.0-16.0); Mean Corp Hgb Conc. 31.6 g/dL (33.0-37.0); Mean Corpuscular Volume 92.9 fL (81.0-99.0); Platelet Count 466 10^3/uL (130-400); Red Cell Dist. Width 15.2 % (11.5-14.5)
[2025-03-31 08:56] LABS: Blood Urea Nitrogen 33 mg/dl (7-17); Calcium 9.5 mg/dl (8.4-10.2); Carbon Dioxide 32 mmol/L (22-30); Chloride 103 mmol/L (98-107); Estimated Creatinine Clearance 25 ml/min; Glucose 117 mg/dl (70-99); Potassium 3.8 mmol/L (3.5-5.1); Sodium 142 mmol/L (135-145); eGFR 34.58
--- NOTE | 2025-03-31 09:19 | W.PN.HOSP.TC ---
Today's Communication/Plan
-
Lasix plan per Cardiology
home O2 testing/PT/OT
Assessment / Plan
Assessment / Plan
Assessment:
Acute on chronic HFpEF
Acute hypoxic respiratory insufficiency
- IV Lasix per Cardiology; requires intensive monitoring of I/Os, weights, lytes
- DCA cards following
- Wean O2: Home O2 eval ordered/PT/OT
Sepsis POA (leukocytosis, tachycardia)
Cystoscopy with left URS/stone manipulation/laser lithotripsy with stone extraction and stent exchange 03/27/25
Recent admission for sepsis and Proteus bacteremia/UTI/Pyelonephritis 03/15/25 until 03/22/25
- Urology following; will need stent removal outpatient
- continue Unasyn, complete 10 day course
CKD 3b
- monitor labs daily
Permanent Afib with RVR
- continue metoprolol
- Not chronically on OAC due to previous small volume acute hemorrhage in the left lateral ventricle on CT head 11/27/24
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
Labile essential HTN
Hyperlipidemia
Chronic elevation of alkaline phos
- monitor
H/o ICH
Memory changes
- patient remains minimally communicative
- have problem with memory
DVT ppx: SCDs
Code: DNR/DNI
Dispo: PT/OT recommends SNF, family opts for home/VN - consult placed.
Anticipated Discharge: Within 24 hours
Subjective/Interval History
-
Date of Service: March 31, 2025
denies any new complaints
SOB improving
now down to 1L NC
weight reported down 3kg
Objective Data
-
Labs:
Laboratory Results
03/31/25
07:37
WBC 12.7 H
Hgb 10.0 L
Hct 31.6 L
Plt Count 466 H
Sodium 142
Potassium 3.8
Chloride 103
Carbon Dioxide 32 H
BUN 33 H
Creatinine 1.5 H
Glucose 117 H
Calcium 9.5
Vital Signs:
Vital Signs
Temp Pulse Resp BP Pulse Ox
97.5 F 74 16 171/78 100
03/31/25 08:05 03/31/25 08:05 03/31/25 08:05 03/31/25 08:05 03/31/25 08:05
I&O
03/30/25 03/31/25 04/01/25
06:59 06:59 06:59
Intake Total 720 / 720 480 / 480
Balance 720 / 720 480 / 480
Physical Exam
-
General: No Apparent Distress
HEENT: Normocephalic and Atraumatic
Respiratory: Clear to Auscultation; Negative Wheezes
Cardiac: Regular Rhythm and S1/S2
GI: Soft
Neuro: AO x 3
Psych: Calm
Data Reviewed
-
Total Time Spent with Patient (in minutes): 51
Labs: Labs Reviewed by me
[2025-03-31] MEDS: LASIX 40 MG IV ×2 (10:00→16:41)
[2025-03-31] MEDS: TOPROL XL 50 MG PO ×2 (10:02→19:33)
[2025-03-31] MEDS: PROZAC 40 MG PO (10:02)
--- NOTE | 2025-03-31 10:52 | W.PN.CARDCBS ---
Today's Communication / Plan
-
Continue IV Lasix as weight is down and renal function has improved
Consider change to oral Lasix in the next 24 hours
Continue Toprol for heart rate control but if heart rate control continues to be an issue will consider adding amiodarone
Impression / Plan
-
PCP: Maren Conner LITIGATION SERVICES MANAGER
Primary senior naval parachutist is Dr. Robert Hu
Impression:
Admitted with acute HF and possible sepsis 03/24/25
Cystoscopy with left URS/stone manipulation/laser lithotripsy with stone extraction and stent exchange 03/27/25
Recent admission for sepsis and pyelonephritis 03/15/25 until 03/22/25
Sepsis
Possible UTI
Acute on chronic HFpEF
CKD 3b
Permanent Afib
Not chronically on OAC due to previous small volume acute hemorrhage in the left lateral ventricle on CT head 11/27/24
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
Labile HTN
Hyperlipidemia
Echo 04/11/2023: EF 55 to 60%, normal RV size and function, mild MR, mild TR
Echo 03/25/2025: EF 60%, no WMA, mild concentric LVH, mild to moderate MR, trace aortic regurgitation
Plan:
She appears improved.
Will continue IV Lasix as creatinine has improved to 1.5
Weights may not be accurate but is down 7 pounds in the past 24 hours
Consider change to oral Lasix in the next 24 hours
Heart rate control reasonable in A-fib on higher dose of Toprol
May need to consider adding amiodarone if heart rate continues to be an issue as blood pressure has been low
Not a good candidate for SGLT2 antagonist or spironolactone
HPI: Patient came to [facility] ER last night with increased SOB and LE edema and was admitted with acute HF and possible sepsis, cardiology is now consulted. Patient was just admitted 03/15/2025 until 03/22/2025 with sepsis and pyelonephritis. During
that admission patient received 12.3 L IVF's. Patient has a h/o chronic HFpEF, but was not taking a daily diuretic. Patient lives in her own home, but is essentially bedbound. Patient relies on caregivers arranged and managed by her daughter who
lives in [place]. The caregivers come in the morning and get patient out of bed to wheelchair and out to kitchen for meals and then at bedtime caregivers get patient back in bed and then return again in the morning. Caregivers had noted
increased LE edema and conversational dyspnea and so patient's daughter arranged for transfer to the ER for evaluation. Patient reports some symptomatic improvement since admission. Patient denies any chest pain currently.
Progress Note - Sales Engagement Manager
Subjective
Date of Service: March 31, 2025
No complaints.
Objective
Labs:
03/31/25 07:37
03/31/25 07:37
Labs
Hgb 10.0 g/dL (12.0-16.0) L 03/31/25 07:37
Hct 31.6 % (37.0-47.0) L 03/31/25 07:37
Plt Count 466 10^3/uL (130-400) H 03/31/25 07:37
Sodium 142 mmol/L (135-145) 03/31/25 07:37
Potassium 3.8 mmol/L (3.5-5.1) 03/31/25 07:37
BUN 33 mg/dl (7-17) H 03/31/25 07:37
Creatinine 1.5 mg/dL (0.6-1.0) H 03/31/25 07:37
Glucose 117 mg/dl (70-99) H 03/31/25 07:37
Vital Signs and I&O:
Vital Signs
Temp Pulse Resp BP Pulse Ox
97.5 F 74 16 171/78 100
03/31/25 08:05 03/31/25 08:05 03/31/25 08:05 03/31/25 08:05 03/31/25 08:05
Vital Signs
Temp Pulse Resp BP Pulse Ox
97.5 F 74 16 171/78 100
03/31/25 08:05 03/31/25 08:05 03/31/25 08:05 03/31/25 08:05 03/31/25 08:05
Intake & Output
03/29/25 03/30/25 03/31/25 04/01/25
06:59 06:59 06:59 06:59
Intake Total 1080 / 1080 720 / 720 480 / 480
Balance 1080 / 1080 720 / 720 480 / 480
Physical Exam
Physical Exam
General: Well developed, well nourished in NAD.
Neck: Supple, no JVD, HJR, carotids +2 B/L, no bruits bilaterally.
Heart: Non displaced PMI, irregular, no murmurs, No S3, S4, no rubs.
Lungs: Scattered rhonchi
Extremities: No clubbing, cyanosis or edema bilaterally.
Neuro: Grossly nonfocal, awake, alert and oriented x3.
--- NOTE | 2025-03-31 13:27 | RESPNOTE ---
Physical therapy took patient out of bed to chair. 98% on RA, with standing and pivoting into chair pt remained at 95%. pt is unable to walk any distance at this time per physical therapy
--- NOTE | 2025-03-31 14:51 | PN.CDI ---
CDI
- -
CDI:
Physician Documentation Request
Admit Date: 03/25/25 03:05
Dear Doctor Raiza,
Please review the following and provide your response in the progress notes.
Clinical Indicators:
03/25/25 03:24 - Patient Care Note
#...Left heel has stage 1(non-blanchable redness),
#...right heel is intact with blanchable redness present.
Selected Entries
03/25/25
17:39
Pressure injury stage [Present on admission Left Heel] Stage 1
Physician documentation of the type and location of wounds is required for compliant documentation. Based on the above clinical findings and your assessment, please provide the following in your progress note:
Yes, left heel stage 1 pressure injury, POA
No, left heel stage 1 pressure injury
Other (please specify)
1. Location of the ulcer/wound, including laterality.
2. Type (etiology) of ulcer/wound:
- Diabetic ulcer
- Venous stasis ulcer
- Pressure (decubitus) ulcer
- Other (please specify)
3. For a pressure ulcer, please also include the stage* of the ulcer:
- Stage 1 - Skin intact, non-blanchable redness
- Stage 2 - Partial thickness loss of dermis, includes intact or open blister
- Stage 3 - Full thickness tissue not including bone, tendon or muscle
- Stage 4 - Full thickness tissue loss, including exposed bone, tendon or muscle
- Unstageable - Full thickness loss in which the base of the ulcer is covered by slough (yellow, puentes, vargas, green or brown) and/or eschar (puentes, brown or black) in the wound bed.
- Unable to determine
Use of terms such as suspected, likely, concern for, or probable (associated with a specific diagnosis that is being evaluated, monitored, or treated as if it exists) are acceptable and can be coded in the inpatient setting, when documented at the
time of discharge.
Thank you,
Mellisa Duque RN BSN CCDS
CDI Specialist
Please contact via tiger text
Please use your independent medical judgment in providing your response.
[2025-03-31] MEDS: LIPITOR 20 MG PO (16:42)
[2025-04-01 03:13] VITALS: BP 123/83
[2025-04-01] MEDS: UNASYN IV (05:35)
[2025-04-01 06:00] VITALS: BMI 22.6
[2025-04-01 07:30] VITALS: BP 132/92
[2025-04-01 08:19] LABS: Hematocrit 30.2 % (37.0-47.0); Hemoglobin 10.0 g/dL (12.0-16.0); Mean Corp Hgb Conc. 33.1 g/dL (33.0-37.0); Mean Corpuscular Volume 91.2 fL (81.0-99.0); Platelet Count 534 10^3/uL (130-400); Red Cell Dist. Width 15.2 % (11.5-14.5)
--- NOTE | 2025-04-01 08:44 | W.PN.HOSP.TC ---
Today's Communication/Plan
-
LUE US for IV infiltration, possible clot
Follow Cardiology recs
possible DC if cleared
Assessment / Plan
Assessment / Plan
Assessment:
Acute on chronic HFpEF
Acute hypoxic respiratory insufficiency
- IV Lasix per Cardiology; requires intensive monitoring of I/Os, weights, lytes
- DCA cards following
- weaned to RA
Sepsis POA (leukocytosis, tachycardia)
Cystoscopy with left URS/stone manipulation/laser lithotripsy with stone extraction and stent exchange 03/27/25
Recent admission for sepsis and Proteus bacteremia/UTI/Pyelonephritis 03/15/25 until 03/22/25
- Urology following; will need stent removal outpatient
- continue Unasyn, day 01/24. Augmentin at discharge
CKD 3b
- monitor labs daily
Permanent Afib with RVR
- continue metoprolol
- Not chronically on OAC due to previous small volume acute hemorrhage in the left lateral ventricle on CT head 11/27/24
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
Labile essential HTN
Hyperlipidemia
Chronic elevation of alkaline phos
- monitor
H/o ICH
Memory changes
- patient remains minimally communicative
- have problem with memory
left heel stage 1 pressure injury, POA
DVT ppx: SCDs
Code: DNR/DNI
Dispo: PT/OT recommends SNF, family opts for home/VN which has been arranged
Anticipated Discharge: Within 24 hours
Subjective/Interval History
-
Date of Service: April 01, 2025
resting comfortably
IV line infiltrated, patient with L Antecubital pain overnight
Objective Data
-
Labs:
Laboratory Results
04/01/25 04/01/25 04/01/25
06:12 08:10 08:13
WBC 13.6 H
Hgb 10.0 L
Hct 30.2 L
Plt Count 534 H
Sodium Cancelled Pending
Potassium Cancelled Pending
Chloride Cancelled Pending
Carbon Dioxide Cancelled Pending
BUN Cancelled Pending
Creatinine Cancelled Pending
Glucose Cancelled Pending
Calcium Cancelled Pending
Vital Signs:
Vital Signs
Temp Pulse Resp BP Pulse Ox
97.7 F 83 16 132/92 95
04/01/25 07:30 04/01/25 07:30 04/01/25 07:30 04/01/25 07:30 04/01/25 07:30
I&O
03/31/25 04/01/25 04/02/25
06:59 06:59 06:59
Intake Total 480 / 480 480 / 480
Balance 480 / 480 480 / 480
Physical Exam
-
General: No Apparent Distress
HEENT: Normocephalic and Atraumatic
Respiratory: Negative Wheezes
Cardiac: Regular Rhythm and S1/S2
GI: Soft and Nontender
Skin: IV Access / Catheter Site (L AC palpable cord, discomfort to palpation)
Neuro: AO x 3
Psych: Calm
Data Reviewed
-
Total Time Spent with Patient (in minutes): 51
Labs: Labs Reviewed by me
--- NOTE | 2025-04-01 09:14 | W.PN.CARDCBS ---
Addendum entered and electronically signed by Bandar Gramajo MD 04/01/25 10:45:
I saw and examined the patient.
The Shake Feeder's note was reviewed and I agree with the note.
Comment:
GEN: No distress, awake, Ox3
HEENT: supple, anicteric, mmm
LUNGS: CTA, no wheezes/rales
CV: irreg, S1/S2, 1/6 syst LSB, no gallop
ABD: soft, BS+, NT/ND
EXT: No edema
NEURO: Gross non-focal
SKIN: No rash
PLan:
Weight is overall down 30 pounds. Continue Lasix 40 mg p.o. twice daily upon discharge. Creatinine stable at 1.5.
Continue Toprol. No SLG 2 inhibitor due to history of UTI/pyelo
Original Note:
Today's Communication / Plan
-
Lasix 40 mg PO BID upon d/c to home
Labs pending
Will arrange for cardiology telehealth visit
51 min face to face and non face to face with patient and family
Impression / Plan
-
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 Robert Hu
Impression:
Admitted with acute HF and possible sepsis 03/24/25
Cystoscopy with left URS/stone manipulation/laser lithotripsy with stone extraction and stent exchange 03/27/25
Recent admission for sepsis and pyelonephritis 03/15/25 until 03/22/25
Sepsis
Possible UTI
Acute on chronic HFpEF
CKD 3b
Permanent Afib
Not chronically on OAC due to previous small volume acute hemorrhage in the left lateral ventricle on CT head 11/27/24
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
Labile HTN
Hyperlipidemia
Echo 04/11/2023: EF 55 to 60%, normal RV size and function, mild MR, mild TR
Echo 03/25/2025: EF 60%, no WMA, mild concentric LVH, mild to moderate MR, trace aortic regurgitation
Plan:
-Patient weighed 160 lbs on admission and is down to 131 lbs on 04/01/25. Oxygenation is improved and patient is now on RA. LE edema has improved. Overall patient symptomatically improved.
-Patient diuresed with Lasix 40 mg IV BID. Patient was not taking a diuretic prior to admission. Recommend Lasix 40 mg PO BID upon discharge to home.
-Check BMP in 1 week
-Patient is homebound and transport to cardiology office would be $400 per daughter Radha on the phone 04/01/25, will arrange for telehealth visit, but we discussed the risk of readmission from CHF and that telehealth is suboptimal compared to
in-office evaluation.
-Cre as high as 3.4 last admission with ureteral stent for pyelonephritis, but only as high as 1.8 this admission. Labs pending for 04/01/25, but Cre was better at 1.5 on 03/31/25 labs reviewed by me. Patient received 12.3 L IVF's during her admission
for sepsis and pyelonephritis 03/15/25.
-EF 60% by echo.
-Outpatient dose of Toprol XL increased to 50 mg BID for improved rate control on 03/30/25 and all doses tolerated thus far
-Patient was not taking JAMIE/ARB/ARNI/aldosterone antagonist prior to admission with known CKD 3B
-We will not start SGLT2 inhibitor due to UTI
-Patient with known permanent A-fib. Tele reviewed by me on 04/01/2025 shows ongoing A-fib with HR 80s
-Patient is no longer on OAC due to intracranial hemorrhage seen on CT head 11/27/2024.
-Talked with patient's daughter, Radha, by phone for 8 minutes on 04/01/2025 updating her on plans for d/c and outlining improved labs, oxygenation and overall symptoms.
-Case reviewed with hospitalist attending, agree with d/c 04/01/25
HPI: Patient came to [facility] last night with increased SOB and LE edema and was admitted with acute HF and possible sepsis, cardiology is now consulted. Patient was just admitted 03/15/2025 until 03/22/2025 with sepsis and pyelonephritis. During
that admission patient received 12.3 L IVF's. Patient has a h/o chronic HFpEF, but was not taking a daily diuretic. Patient lives in her own home, but is essentially bedbound. Patient relies on caregivers arranged and managed by her daughter who
lives in [place]. The caregivers come in the morning and get patient out of bed to wheelchair and out to kitchen for meals and then at bedtime caregivers get patient back in bed and then return again in the morning. Caregivers had noted
increased LE edema and conversational dyspnea and so patient's daughter arranged for transfer to the ER for evaluation. Patient reports some symptomatic improvement since admission. Patient denies any chest pain currently.
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
Subjective
Date of Service: April 01, 2025
She feels better, no longer SOB at rest
Objective
Labs:
04/01/25 08:10
Labs
Hgb 10.0 g/dL (12.0-16.0) L 04/01/25 08:10
Hct 30.2 % (37.0-47.0) L 04/01/25 08:10
Plt Count 534 10^3/uL (130-400) H 04/01/25 08:10
Sodium Cancelled 04/01/25 06:12
Potassium Cancelled 04/01/25 06:12
BUN Cancelled 04/01/25 06:12
Creatinine Cancelled 04/01/25 06:12
Glucose Cancelled 04/01/25 06:12
Vital Signs and I&O:
Vital Signs
Temp Pulse Resp BP Pulse Ox
97.7 F 83 16 132/92 95
04/01/25 07:30 04/01/25 07:30 04/01/25 07:30 04/01/25 07:30 04/01/25 07:30
Vital Signs
Temp Pulse Resp BP Pulse Ox
97.7 F 83 16 132/92 95
04/01/25 07:30 04/01/25 07:30 04/01/25 07:30 04/01/25 07:30 04/01/25 07:30
Intake & Output
03/30/25 03/31/25 04/01/25 04/02/25
06:59 06:59 06:59 06:59
Intake Total 720 / 720 480 / 480 480 / 480
Balance 720 / 720 480 / 480 480 / 480
Physical Exam
Physical Exam
GEN: NAD. AAOx3
LUNGS: RA. No audible wheeze
CV: Afib on tele.
[2025-04-01] MEDS: LASIX 40 MG IV (09:15)
[2025-04-01] MEDS: TOPROL XL 50 MG PO (09:17)
[2025-04-01] MEDS: PROZAC 40 MG PO (09:17)
[2025-04-01 09:50] LABS: Blood Urea Nitrogen 33 mg/dl (7-17); Calcium 10.0 mg/dl (8.4-10.2); Carbon Dioxide 32 mmol/L (22-30); Chloride 101 mmol/L (98-107); Estimated Creatinine Clearance 25 ml/min; Glucose 108 mg/dl (70-99); Potassium 3.6 mmol/L (3.5-5.1); Sodium 140 mmol/L (135-145); eGFR 34.58
--- NOTE | 2025-04-01 09:51 | W.DS.TRANS ---
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
-
Discharge Instructions:
Discharge Diagnosis/Procedures acute CHF, hypoxia resolved, sepsis related to
UTI with stone extraction and stent exchange
11
Diet 2 Gram Sodium,Restrict fluids to 48 oz,Low
Cholesterol
Activity As tolerated
Blood Work BMP in 1 week - script given
Other Services VN,PT,OT
Instructions:
Stand-Alone Forms:
Changes to Home Medications: Yes
Discharge Medications:
DC Medications w/original date entered in [facility]
atorvastatin 20 mg tablet 20 mg PO QPM High cholesterol 12/28/21
fluoxetine 40 mg capsule 40 mg PO DAILY Mental Health/Anxiety 11/27/24
therapeutic multivitamin 1 tab PO DAILY Supplement 03/15/25
amoxicillin 875 mg-potassium clavulanate 125 mg tablet 1 tab PO Q12H #10 tabs 04/01/25
furosemide 40 mg tablet (Lasix) 40 mg PO BID #60 tabs 04/01/25
metoprolol succinate 25 mg tablet,extended release 24 hr 50 mg (2 x 25 mg) PO BID #60 tabs 04/01/25
Home Medication Changes
Lasix to 40mg BID
Toprol to BID
Pending Results: No
Total time spent discharging patient (in min): 41
[2025-04-01 11:25] VITALS: BP 110/75
--- NOTE | 2025-04-01 12:02 | CM ---
Spoke with attending who stated that patient is medically stable for discharge. Placed a call to patient's daughter Radha, who stated that she is coming up from [place] to be with her the end of this week. Patient also has cg and is current with
[facility]. Resumption of care referral updated and sent. Medical necessity completed for transfer and transfer sheet. IMM reviewed with daughter.
Plan: Case management will continue to follow and assist with discharge planning. Home with VN and cg.
[2025-04-01 15:25] VITALS: BP 151/56
[2025-04-01] MEDS: LASIX IV (17:33)
[2025-04-01 23:05] LABS: Stone Analysis Mass 2 mg
== END 2025-04-01 18:02 | disposition home health service (06) | DRG 853 ==
LOC: 4 EAST ACU 03:05
PROVIDERS: Hospitalist; Internal Medicine Cardiovascular Disease; Surgery; ADMITTING PHYSICIAN Internal Medicine; ATTENDING PHYSICIAN Internal Medicine; CONSULT PHYSICIAN Specialist; EMERGENCY PHYSICIAN Student in an Organized Health Care Education/Training Program; FAMILY PHYSICIAN Nurse Practitioner Adult Health; OTHER PHYSICIAN Nuclear Medicine Nuclear Cardiology
PROC: 0TC78ZZ Extirpation of Matter from Left Ureter, Via Natural or Artificial Opening Endoscopic (ICD-10-PCS; 2025-03-27)
PROC: 0T778DZ Dilation of Left Ureter with Intraluminal Device, Via Natural or Artificial Opening Endoscopic (ICD-10-PCS; 2025-03-27)
PROC: 0TP98DZ Removal of Intraluminal Device from Ureter, Via Natural or Artificial Opening Endoscopic (ICD-10-PCS; 2025-03-27)
DX: A41.9 Sepsis, unspecified organism (principal); I50.33 Acute on chronic diastolic (congestive) heart failure; J96.01 Acute respiratory failure with hypoxia; N39.0 Urinary tract infection, site not specified; I48.21 Permanent atrial fibrillation; I13.0 Hypertensive heart and chronic kidney disease with heart failure and stage 1 through stage 4 chronic kidney disease, or unspecified chronic kidney disease; K55.1 Chronic vascular disorders of intestine; N20.1 Calculus of ureter; E78.00 Pure hypercholesterolemia, unspecified; F32.A Depression, unspecified; F41.9 Anxiety disorder, unspecified; N18.32 Chronic kidney disease, stage 3b; D63.1 Anemia in chronic kidney disease; Z66 Do not resuscitate; B96.4 Proteus (mirabilis) (morganii) as the cause of diseases classified elsewhere; L89.621 Pressure ulcer of left heel, stage 1; Z91.81 History of falling; Z11.52 Encounter for screening for COVID-19; Z74.01 Bed confinement status; Z87.442 Personal history of urinary calculi; Z87.891 Personal history of nicotine dependence
CPT/HCPCS: 71046; 74018; 74176; 76000; 80048; 80053; 80202; 81003; 81015; 82365; 83605; 83735; 83880; 84443; 85025; 85027; 87040; 87086; 87502; 87811; 93005; 93306; 93971; 96365; 96367; 96375; 97163; 97167; 97530; 97535; 99291; C2617; Q9950